=== PATIENT | male | born 1950 | race Caucasian/White ===

== ENCOUNTER 2024-12-03 15:03 | Inpatient (IN) | payer MEDICARE, SELFPAY ==
--- NOTE | 2024-12-03 15:05 | ADMGEN ---
This patient, Daniel Lloyd, was admitted to 2nd Floor Room 205-1. Patient/family oriented to hospital policies and general routines including ID bracelet, bed and alarms, visiting hours, pain management, procedures, bathroom and other care routines, personal items, smoking policy, room service/diet, and visiting hours. Information on how to activate the Rapid Response Team has been discussed. Patient/Family are encouraged to report perceived risks to care and to ask questions if they do not understand what they are told or what they should do.
[2024-12-03 15:39] VITALS: BMI 30.4
[2024-12-03 16:00] VITALS: BP 147/84; PULSE 108; RESP 18; TEMP 36.4; O2SAT 98
[2024-12-03 16:55] VITALS: PULSE 108; RESP 18; O2SAT 98
[2024-12-03 17:38] VITALS: BMI 10.0
--- OUTSIDE RECORDS SUMMARY | 2024-12-03 17:53 | XMS_ITS | Patient Health Summary ---
Author Organization [facility] Address [address] [place] [address] Care Team Providers Care Medical Or Surgical Instrument Maker Name Role Phone Casandra Foreman MD Primary Care Provider [phone] Piter Lau DO Unavailable [phone] Note from [facility],non-owned Affiliates and Associated Physician Practices is amultiple site organization consisting of ambulatory clinics and hospital sitesin [place], [place], [place] and [place]. This disclosure is being madepursuant to the Care Everywhere program and may not contain all information available regarding this patient. Last updated 18.[facility] Allergies * Meperidine * Niacin(Rash) -Medium Criticality Medications * Be aware that medications may not be up to date on this document. Alwaysverify current medications with the patient. * Multiple Vitamin (MULTI VITAMIN DAILY PO) Take 1 Tab by mouth once daily * CALCIUM PO Take 1,200 mg by mouth once daily * Altheimer-3 Fatty Acids (FISH OIL) 1000 MG capsule Take 1,000 mg by mouth once daily * Multiple Vitamins-Minerals (PRESERVISION AREDS PO) * B Complex-C (SUPER B COMPLEX PO) Take by mouth once daily * Coenzyme Q10 (COQ10 PO) Take 200 mg by mouth once daily * metFORMIN (GLUCOPHAGE) 500 MG tablet Take 500 mg by mouth 2 times daily with morning and evening meal * TURMERIC PO Take 1 capsule by mouth 2 times daily * Vitamin D3 (CHOLECALCIFEROL) 50 MCG (2000 UT) capsule Take 2,000 Units by mouth once daily * Zinc Chelated 50 MG TABS Take 50 mg by mouth once daily * dilTIAZem coated beads 24hr (CARDIZEM CD) 240 MG capsule(Started 04/21/2021) Take 1 (one) capsule by mouth once daily 3 refills by 04/21/2022 * quinapril - hydroCHLOROthiazide (ACCURETIC; QUINARETIC) 20-12.5 MG tablet (Started 04/21/2021) Take 2 (two) tablets by mouth once daily 5 refills by 04/21/2022 * rosuvastatin (CRESTOR) 10 MG tablet(Started 04/21/2021) Take 1 (one) tablet by mouth once daily 3 refills by 04/21/2022 Active Problems Problem Noted Date Diagnosed Date DM (diabetes mellitus) 02/17/2015 HTN (hypertension) 02/17/2015 Social History Tobacco Use Types Packs/Day Years Used Date Smoking Tobacco: Former Cigarettes Q uit: 09/19/1982 Smokeless Tobacco: Never Tobacco Cessation:Counseling Given: No Alcohol Use Standard Drinks/Week Comments Yes 0 (1 standard drink = 0.6 oz pur e alcohol) maybe once per month Sex and Gender Information Value Date Recorded Sex Assigned at Not on file Gender Identity Not on file Sexual Orientation Not on file Last Filed Vital Signs Vital Sign Reading Time Taken Comments Blood Pressure 130/88 04/21/2021 2:12 PM CDT Pulse 86 04/21/2021 2:12 PM CDT Temperature 36.9 C (98.4 F) 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 Right: [employer] 10/06/2019 [id number] / N/A / [id number] Procedures * EKG 12-LEAD(Performed 04/21/2021) Performed for Sinus tachycardia * EKG 12-LEAD(Performed 10/21/2020) Performed for Sinus tachycardia * EKG 12-LEAD(Performed 03/17/2020) Performed for Sinus tachycardia * LIPID PROFILE(Performed 03/07/2018) Performed for Mixed hyperlipidemia * BASIC METABOLIC PANEL (CALCIUM TOTAL)(Performed 03/07/2018) Performed for Swelling of limb * CARDIAC RHYTHM STRIP ORDER(Performed 10/22/2016) * PULSE OXIMETRY, CONTINUOUS(Performed 10/22/2016) * COLONOSCOPY DIAGNOSTIC(Performed 10/22/2016) Performed for Hx of colonic polyp * PULSE OXIMETRY, CONTINUOUS(Performed 10/22/2016) * OXYGEN(Performed 10/22/2016) * ENDOSCOPY, COLON, SCREENING(Performed 10/22/2016) * CARDIAC RHYTHM STRIP ORDER(Performed 05/03/2016) * GROSS EXAM PATHOLOGY (ILL)(Performed 04/30/2016) Performed for Kidney stone * FLUORO LESS THAN 1HR STAT ONLY(Performed 04/30/2016) Performed for Kidney stone * STONE ANALYSIS QUANT(Performed 04/30/2016) Performed for Kidney stone * CYSTOSCOPY URETEROSCOPY WITH LASER/HOLMIUM LITHOTRIPSY(Performed 04/30/2016) Performed for Kidney stone * EKG 12-LEAD(Performed 04/28/2016) Performed for Kidney stone, Essential hypertension * URINALYSIS AUTO - POINT OF CARE (AMB) [facility](Performed 04/12/2016) Performed for Kidney stone * CT ABDOMEN PELVIS WO CONTRAST(Performed 04/11/2016) Performed for Right flank pain * COMPREHENSIVE METABOLIC PANEL(Performed 04/11/2016) * CBC W AUTO DIFFERENTIAL(Performed 04/11/2016) * URINE MICROSCOPIC ONLY REFLEX TO CULTURE(Performed 04/11/2016) * URINALYSIS REFLEX MICROSCOPIC REFLEX CULTURE(Performed 04/11/2016) * ECHOCARDIOGRAM 2D WITH DOPPLER(Performed 03/04/2015) Performed for Other chest pain * EVENT MONITOR(Performed 03/04/2015) Performed for Palpitations * MICROALBUMIN URINE TIMED(Performed 09/25/2013) Performed for Type Ii Or Unspecified Type Diabetes Mellitus Without Mention Of Complication, Not Stated As Uncontrolled (Hcc) * URINE MICROSCOPIC ONLY(Performed 09/25/2013) Performed for Type Ii Or Unspecified Type Diabetes Mellitus Without Mention Of Complication, Not Stated As Uncontrolled (Formerly [facility]) * URINALYSIS NO MICROSCOPIC NO CULTURE(Performed 09/25/2013) Performed for Type Ii Or Unspecified Type Diabetes Mellitus Without Mention Of Complication, Not Stated As Uncontrolled ([facility]) * TSH(Performed 09/25/2013) Performed for Other Malaise And Fatigue * T4 FREE(Performed 09/25/2013) Performed for Other Malaise And Fatigue * HEMOGLOBIN A1C(Performed 09/25/2013) Performed for Type Ii Or Unspecified Type Diabetes Mellitus Without Mention Of Complication, Not Stated As Uncontrolled ([facility]) * LIPID PROFILE(Performed 09/25/2013) Performed for Type Ii Or Unspecified Type Diabetes Mellitus Without Mention Of Complication, Not Stated As Uncontrolled ([facility]) * CBC W/O DIFFERENTIAL(Performed 09/25/2013) Performed for Type Ii Or Unspecified Type Diabetes Mellitus Without Mention Of Complication, Not Stated As Uncontrolled ([facility]) * COMPREHENSIVE METABOLIC PANEL(Performed 09/25/2013) Performed for Type Ii Or Unspecified Type Diabetes Mellitus Without Mention Of Complication, Not Stated As Uncontrolled ([facility]) * GROSS + MICRO EXAM(Performed 06/22/2012) * GROSS + MICRO EXAM(Performed 06/09/2010) * GROSS + MICRO EXAM(Performed 07/03/1997) * GROSS + MICRO EXAM(Performed 08/24/1996) Results * EKG 12-LEAD (04/21/2021) Only the most recent of4 resultswithin the time period is included. Piter Lau DO ECG ORDERABLES * (ABNORMAL) BASIC METABOLIC PANEL (CALCIUM TOTAL) (03/07/2018 8:14 AM CDT) [facility] Glucose 202(H) 70 - 125 mg/dL 03/07/2018 9:23 AM T [facility] Sodium 140 136 - 145 mmol/L 03/07/2018 9:23 AM CDT [facility] Potassium 3.9 3.4 - 4.5 mmol/L 03/07/2018 9:23 AM T [facility] Chloride 104 98 - 107 mmol/L 03/07/2018 9:23 AM T [facility] CO2 26 22 - 29 mmol/L 03/07/2018 9:23 AM CDT [facility] Calcium 9.2 8.4 - 10.2 mg/dL 03/07/2018 9:23 AM CDT [facility] Anion Gap 14 10 - 20 mmol/L 03/07/2018 9:23 AM CDT [facility] BUN 11.9 8.4 - 25.7 mg/dL 03/07/2018 9:23 AM CDT [facility] Creatinine 0.97 0.72 - 1.25 mg/dL 03/07/2018 9:23 AM CDT [facility] eGFR by MDRD >60 >60 mL/min/1.7 3m2 03/07/2018 9:23 AM CDT [facility] eGFR by MDRD >60 >60 mL/min/1.7 3m2 03/07/2018 9:23 AM CDT [facility] Blood BLOOD SPECIMEN / Unknown Lab Venipuncture / Unknown 03/07/2018 8:14 AM CDT 03/07/2018 8:49 AM CDT Piter Lau DO LAB - CHEMISTRY [place]DE [place] [facility] Organization Address City/State/[facility] Co de Phone Number [facility] [address] * (ABNORMAL) LIPID PROFILE (03/07/2018 8:14 AM CDT) Only the most recent of2 resultswithin the time period is included. Cholesterol 91 <200 mg/dL 03/07/2018 9:23 AM T [facility] Triglycerides 214(H) <150 mg/dL 03/07/2018 9:23 AM CDT [facility] HDL Cholesterol 27(L) >40 mg/dL 8 9:23 AM CDT [facility] Chol HDL Ratio 3.4 1.0 - 6.0 03/07/2018 9:23 AM T [facility] LDL Calculated 21(L) 65 - 130 mg/dL 03/07/2018 9:23 AM T [facility] VLDL Calculated 43(H) 10 - 40 mg/dL 03/07/2018 9:23 AM CDT [facility] Blood BLOOD SPECIMEN / Unknown Lab Venipuncture / Unknown 03/07/2018 8:14 AM CDT 03/07/2018 8:49 AM CDT Narrative [facility] - 03/07/2018 9:23 AM CDT Lipid Profile Comment: CHOLESTEROL LEVEL..................CLINICAL INTERPRETATION LESS THAN 200 MG/DL..............................DESIRABLE 200-239 MG/DL..............................BORDERLINE HIGH GREATER THAN 240 MG/DL................................HIGH LDL-CHOLESTEROL LEVEL..............CLINICAL INTERPRETATION LESS THAN 100 MG/DL................................OPTIMAL 100-129 MG/DL.................................NEAR OPTIMAL GREATER THAN 160 MG/DL...........................HIGH RISK HDL RISK LEVEL GREATER THEN 60 MG/DL............................DECREASED 40-60 MG/DL........................................AVERAGE LESS THAN 40 MG/DL...............................INCREASED TRIGLYCERIDE LEVEL..................CLINICAL INTERPRETATION LESS THAN 150 MG/DL...............................DESIRABLE 150-199 MG/DL...............................BORDERLINE HIGH 200-499 MG/DL..........................................HIGH GREATER THAN 500..................................VERY HIGH THE NATIONAL CHOLESTEROL EDUCATION PROGRAM HAS SET THE ABOVE GUIDELINES (REFERANCE VALUES) FOR CHOLESTEROL AND HDL. RISK ASSOCIATED WITH CHOLESTEROL/HDL RATIOS RISK....................MALE RATIO.............FEMALE RATIO 1/2 AVERAGE.................<3.4.......................<3.3 LOW RISK.................... 4.0 ...................... 3.8 AVERAGE..................... 5.0 ...................... 4.5 2X AVERAGE.................. 9.5 ...................... 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 Narrative 10/22/2016 3:29 PM [employer] CRE[employer] MIXER Ordered by an unspecified provider. Scanned Document CARDIAC SERVICES ORD ERABLES * GROSS EXAM PATHOLOGY (ILL) (04/30/2016 12:50 PM CDT) Case Report Surgical Pathology Report Case: [id number] Authorizing Provider: Lasha Card MD Collected: 04/30/2016 12:50 PM Ordering Location: [facility] Received: 04/30/2016 02:37 PM Pathologist: Edward Watts MD Specimen: Calculus Kidney, right 04/30/2016 4:08 PM CDT [facility] Final Diagnosis URETER, RIGHT, LASER LITHOTRIPSY: - FEATURES MORPHOLOGICALLY COMPATIBLE WITH UROLITH. - SENT FOR ANALYSIS. GROSS DIAGNOSIS ONLY. ALK/jzr 04/30/2016 4:08 PM CDT [facility] Clinical History Collection Date: 04/30/2016 Preoperative Clinical Diagnosis: Kidney stone Operative Procedure: CYSTOSCOPY RIGHT URETEROSCOPY WITH LITHOTRIPSY WITH LASER, BASKET STONE EXTRACTION, RIGHT URETERAL STENT PLACEMENT. Specimen Submitted: Right kidney stone Physician: Lasha Card MD 04/30/2016 4:08 PM CDT [facility] Gross Description Received fresh labeled [place], Daja and calc kdn , are seven angulated bhakta-brown stone fragments which range from 0.2 to 0.3 cm in greatest dimension. The stone fragments are entirely submitted for compositional analysis. Gross diagnosis only. 04/30/2016 4:08 PM CDT [facility] Microscopic Description Not performed, gross examination only. 04/30/2016 4:08 PM CDT [facility] Testing Performed By Performed by [facility] at [facility], [place]. [address] 04/30/2016 4:08 PM CDT [facility] Pathology/Cytolo gy KIDNEY STONE / Unknown 04/30/2016 12:50 PM CDT 04/30/2016 2:37 PM CDT Lasha Card MD LAB - PATHOLOGY/CYTO LOGY ORDERABLES [facility] [address] * [place] GUIDE < 1 HOUR NO DICTATION STAT ONLY [id number] (04/30/2016 12:19 PM CDT) Narrative [facility] - 04/30/2016 12:19 PM CDT No Dictation. Lasha Card MD FLUOROSCOPY ORDERABL ES Performing Organization Address [facility] Co de Phone Number [facility] [address] * (ABNORMAL) GLUCOSE - POINT OF CARE (04/30/2016 12:14 PM CDT) Only the most recent of2 resultswithin the time period is included. Blood BLOOD SPECIMEN / Unknown 04/30/2016 12:14 PM CDT 04/30/2016 12:16 PM CDT Lasha Card MD LAB - POINT OF CARE ORDERABLES Performing Organization Address [facility] de Phone Number [facility] [address] * STONE ANALYSIS QUANT (04/30/2016 11:46 AM CDT) Calculi Mass 60 mg 05/04/2016 7:06 PM CDT [facility] ([facility]) Calculi Number Numerous 05/04/2016 7:06 PM CDT [facility] ([facility]) Calculi Size 1 to 4 mm 05/04/2016 7:06 PM CDT [facility] ([facility]) Calculi Description See Note 05/04/2016 7:06 PM CDT [facility] ([facility]) Comment: Specimen consists of numerous, small, bhakta, crystalline calculi fragments. Calculi Composition See Note 05/04/2016 7:06 PM CDT [facility] ([facility]) Comment: Calculi composed primarily of: 70% calcium oxalate dihydrate, and 30% calcium phosphate (hydroxy- and carbonate- apatite). INTERPRETIVE INFORMATION: Calculi (Stone) analysis Calculi are the products of physiological processes that yield crystalline compounds in a matrix of biological compounds and blood. Matrix components are not reported. The clinically significant crystalline components identified in calculi specimens are reported. Gross description may not be consistent with composition determined by FTIR analysis. Performed by [facility], [address] [place] [address] [email or web address], Seb Zimmerman MD, Lab. Director Miscellaneous samples (specimen) KIDNEY STONE / Unknown 04/30/2016 11:46 AM CDT 04/30/2016 4:12 PM CDT Lasha Card MD LAB - URINE CHEMISTR Y ORDERABLES [facility] ([facility]) [address] [place] [address], [facility] * (ABNORMAL) URINALYSIS AUTO - POINT OF CARE (AMB) [facility] (04/12/2016 11:45 AM CDT) Clarity UA POCT --- Color UA POCT --- Glucose UA 500.(A) Negative Bilirubin UA POCT Negative Negative Ketone UA Negative Negative Specific Lanse UA POCT 1.020 1.002 - 1.030 Blood UA POCT Large(A) Negative pH UA 5.0 5.0 - 8.0 pH units Protein UA POCT Negative Negative Urobilinogen UA 0.2 0.1 - 1.0 Nitrite UA POCT Negative Negative Leukocyte UA Negative Negative QC Verified Yes Yes Urine specimen (specimen) URINE / Unknown 04/12/2016 11:45 AM CDT Lasha Card MD LAB - POINT OF CARE ORDERABLES * CT ABDOMEN AND PELVIS WO IV CONTRAST [id number] (04/11/2016 8:11 PM CDT) Anatomical Region Laterality Modality Abdomen, Pelvis Computed Tomogra phy 04/11/2016 8:40 PM CDT Impressions 04/11/2016 9:31 PM CDT Obstructive uropathy on right due to 5 x 10 mm stone at the right UPJ without additional urinary tract calculi or left-sided obstructive uropathy. Cholelithiasis without cholecystitis. Large left inguinal hernia containing mesenteric fat and small bowel loop without incarceration of bowel. Smaller right inguinal hernia containing fat only. No apparent bowel obstruction. No mass lesions identified on this unenhanced study with chronic and postoperative change as noted above. Preliminary report printed to the Emergency Room on 04/11/2016 at 2049 hours. Subsequent telephone call to Isaac Marvin confirmed receipt of printed report. Narrative 04/11/2016 9:[address] OF ABDOMEN AND PELVIS WITHOUT IV OR ORAL CONTRAST WITH SAGITTAL AND CORONAL RECONSTRUCTION (04/11/2016) HISTORY: Right flank pain. Request to evaluate for urinary tract calculus. Automated exposure control with radiation dose reduction technique utilized. FINDINGS: Obstructive uropathy on right with moderate perinephric stranding and with hydronephrosis due to approximately 5 x 10 mm obstructing stone at the right UPJ. No additional urinary tract calculi identified and without apparent obstructive uropathy on the left. Visualized lung bases appear clear of active disease with minor post-inflammatory calcification. Postoperative ventral hernia repair change evident with mesh in place. There is also a large left inguinal hernia continuing inferior to inferior margin of study and containing both mesenteric fat and small bowel loop; wide mouth of hernia in range of 5 cm without incarceration of bowel or bowel obstruction. Right inguinal hernia containing fat only. Phlebolith formation in pelvis. No free intraperitoneal air or free pelvic fluid identified. Moderate, diffuse fatty infiltration of liver. Calcified gallstones in dependent portion of gallbladder without apparent CT evidence of acute cholecystitis. No apparent hepatic, splenic, pancreatic, adrenal, renal, or pelvic mass lesions identified on this unenhanced study. Colonic diverticulosis without apparent diverticulitis. No apparent bowel obstruction. Normal appendix. Degenerative and hypertrophic change noted in lumbar and visualized lower thoracic spine with disc height loss at multiple levels and with vacuum disc phenomenon at L4-L5 and L5-S1. Slight grade I/IV spondylolisthesis of L4 anterior relative to L3 felt to be on degenerative basis. Procedure Note Ty Gaspar MD - 04/11/2016 CT OF ABDOMEN AND PELVIS WITHOUT IV OR ORAL CONTRAST WITH SAGITTAL AND CORONAL RECONSTRUCTION (04/11/2016) HISTORY: Right flank pain. Request to evaluate for urinary tract calculus. Automated exposure control with radiation dose reduction technique utilized. FINDINGS: Obstructive uropathy on right with moderate perinephric stranding and with hydronephrosis due to approximately 5 x 10 mm obstructing stone at the right UPJ. No additional urinary tract calculi identified and without apparent obstructive uropathy on the left. Visualized lung bases appear clear of active disease with minor post-inflammatory calcification. Postoperative ventral hernia repair change evident with mesh in place. There is also a large left inguinal hernia continuing inferior to inferior margin of study and containing both mesenteric fat and small bowel loop; wide mouth of hernia in range of 5 cm without incarceration of bowel or bowel obstruction. Right inguinal hernia containing fat only. Phlebolith formation in pelvis. No free intraperitoneal air or free pelvic fluid identified. Moderate, diffuse fatty infiltration of liver. Calcified gallstones in dependent portion of gallbladder without apparent CT evidence of acute cholecystitis. No apparent hepatic, splenic, pancreatic, adrenal, renal, or pelvic mass lesions identified on this unenhanced study. Colonic diverticulosis without apparent diverticulitis. No apparent bowel obstruction. Normal appendix. Degenerative and hypertrophic change noted in lumbar and visualized lower thoracic spine with disc height loss at multiple levels and with vacuum disc phenomenon at L4-L5 and L5-S1. Slight grade I/IV spondylolisthesis of L4 anterior relative to L3 felt to be on degenerative basis. IMPRESSION Obstructive uropathy on right due to 5 x 10 mm stone at the right UPJ without additional urinary tract calculi or left-sided obstructive uropathy. Cholelithiasis without cholecystitis. Large left inguinal hernia containing mesenteric fat and small bowel loop without incarceration of bowel. Smaller right inguinal hernia containing fat only. No apparent bowel obstruction. No mass lesions identified on this unenhanced study with chronic and postoperative change as noted above. Preliminary report printed to the Emergency Room on 04/11/2016 at 2049 hours. Subsequent telephone call to Isaac Wong confirmed receipt of printed report. Gino Mcarthur MD CT ORDERABLES * (ABNORMAL) CBC W AUTO DIFFERENTIAL (04/11/2016 8:05 PM CDT) WBC 10.8(H) 4.0 - 10.0 x10E9/L 04/11/2016 8:11 PM CDT [facility] RBC 4.51 4.40 - 6.10 x10E12/L 04/11/2016 8:11 PM CDT [facility] Hemoglobin 14.8 13.7 - 17.5 gm/dL 04/11/2016 8:11 PM CDT [facility] Hematocrit 42.2 40.1 - 51.0 % 04/11/2016 8:11 PM [facility] MCV 93.6 78.0 - 100.0 fl 04/11/2016 8:11 PM [facility] MCH 32.8 25.6 - 34.0 pg 04/11/2016 8:11 PM [facility] MCHC 35.1 32.3 - 36.5 gm/dL 04/11/2016 8:11 PM [facility] RDW 13.1 11.6 - 14.4 % 04/11/2016 8:11 PM [facility] MPV 10.0 9.4 - 12.4 fl 04/11/2016 8:11 PM [facility] Platelet Count 183 163 - 369 x10E9/L 04/11/2016 8:11 PM [facility] Neutrophils % 72.6 40.0 - 75.0 % 04/11/2016 8:11 PM [facility] Lymphocytes % 15.7(L) 19.3 - 53.1 % 04/11/2016 8:11 [facility] Monocytes % 8.8 4.7 - 12.5 % 04/11/2016 8:11 PM [facility] Eosinophils % 2.3 0.7 - 7.0 % 04/11/2016 8:11 PM [facility] Basophils % 0.2 0.1 - 1.2 % 04/11/2016 8:11 PM [facility] Immature Granulocytes 0.4 0 - 0.5 % 04/11/2016 8:11 PM [facility] Neutrophil Absolute 7.82(H) 1.56 - 6.13 x10E9/L 04/11/2016 8:11 PM [facility] Lymphocytes Absolute 1.69 1.18 - 3.74 x10E9/L 04/11/2016 8:11 PM [facility] Monocytes Absolute 0.95(H) 0.24 - 0.86 x10E9/L 04/11/2016 8:11 PM [facility] Eosinophils Absolute 0.25 0.04 - 0.54 x10E9/L 04/11/2016 8:11 PM [facility] Basophils Absolute 0.02 0.01 - 0.08 x10E9/L 04/11/2016 8:11 PM [facility] Immature Granulocytes Absolute 0.04(H) 0 - 0.03 x10E9/L 04/11/2016 8:11 PM CDT [facility] nRBC Auto 0 <=0 /100 WBC 04/11/2016 8:11 PM CDT [facility] nRBC Absolute 0.00 <=0 x10E9/L 04/11/2016 8:11 PM T [facility] Blood BLOOD SPECIMEN / Unknown Lab Venipuncture / Unknown 04/11/2016 8:05 PM CDT 04/11/2016 8:08 PM CDT Gino Mcarthur MD LAB - HEMATOLOGY ORD ERABLES [facility] [address] * (ABNORMAL) COMPREHENSIVE METABOLIC PANEL (04/11/2016 8:05 PM T) Only the most recent of2 resultswithin the time period is included. Glucose 249(H) 70 - 125 mg/dL 04/11/2016 8:32 PM [facility] Sodium 139 136 - 145 mmol/L 04/11/2016 8:32 PM [facility] Potassium 3.5 3.4 - 4.5 mmol/L 04/11/2016 8:32 PM [facility] Chloride 104 98 - 107 mmol/L 04/11/2016 8:32 PM [facility] CO2 25 22 - 29 mmol/L 04/11/2016 8:32 PM [facility] Calcium 8.9 8.4 - 10.2 mg/dL 04/11/2016 8:32 PM [facility] Anion Gap 14 10 - 20 mmol/L 04/11/2016 8:32 PM [facility] BUN 14.9 8.4 - 25.7 mg/dL 04/11/2016 8:32 PM [facility] Creatinine 1.34(H) 0.72 - 1.25 mg/dL 04/11/2016 8:32 PM [facility] eGFR by MDRD 54(L) >60 mL/min/1.7 3m2 04/11/2016 8:32 PM [facility] [facility] eGFR by MDRD >60 >60 mL/min/1.7 3m2 04/11/2016 8:32 PM T [facility] Alkaline Phosphatase 54 40 - 150 U/L 04/11/2016 8:32 PM CDT [facility] ALT 25 5 - 55 U/L 04/11/2016 8:32 PM CDT [facility] AST 23 5 - 34 U/L 04/11/2016 8:32 PM CDT [facility] Protein Total 6.6 6.4 - 8.3 gm/dL 04/11/2016 8:32 PM CDT [facility] Albumin 3.4(L) 3.5 - 5.0 gm/dL 04/11/2016 8:32 PM CDT [facility] Globulin Total 3.2 2.6 - 4.0 gm/dL 04/11/2016 8:32 PM T [facility] Albumin/Globulin Ratio 1.1 0.9 - 1.6 04/11/2016 8:32 PM T [facility] Bilirubin Total 0.7 0.2 - 1.2 mg/dL 04/11/2016 8:32 PM T [facility] Blood BLOOD SPECIMEN / Unknown Lab Venipuncture / Unknown 04/11/2016 8:05 PM CDT 04/11/2016 8:08 PM CDT Gino Mcarthur MD LAB - CHEMISTRY [place]Z [place] [facility] Organization Address [facility]/State/[facility] Co de Phone Number [facility] [address] * (ABNORMAL) URINALYSIS MICROSCOPIC ONLY W/REFLEX CULTURE (04/11/2016 8:01 PM CDT) RBC UA 5-10(A) None , 0-2 # /hpf 04/11/2016 8:56 PM CDT [facility] WBC UA 0-2 None , 0-2, 2-5 # /hpf 04/11/2016 8:56 PM T [facility] Bacteria UA None Seen None Seen, Trace 04/11/2016 8:56 PM CDT [facility] Epithelial Cell UA 0-2 0-2, 2-5, 5-10 # /hpf 04/11/2016 8:56 PM CDT [facility] Mucus UA 1+ 04/11/2016 8:56 PM T [facility] Reflex Status Culture not indicated 04/11/2016 8:56 PM T [facility] Urine URINE SPECIMEN OBTAINED BY CLEAN CATCH PROCEDURE / Unknown 04/11/2016 8:01 PM CDT 04/11/2016 8:30 PM CDT Narrative [facility] - 04/11/2016 8:56 PM CDT Bacteria, epithelial cells, mucus, and crystals are reported as quantity/HPF. Gino Mcarthur MD LAB - URINALYSIS ORD ERABLES Performing Organization Address [facility] Co de Phone Number [facility] [address] * (ABNORMAL) URINALYSIS ROUTINE W/REFLEX TO CULTURE (04/11/2016 8:01 PM CDT) Color UA Yellow 04/11/2016 8:34 PM CDT [facility] Clarity UA Clear 04/11/2016 8:34 PM CDT [facility] Glucose UA Negative Negative 04/11/2016 8:34 PM CDT [facility] Bilirubin UA Negative Negative 04/11/2016 8:34 PM CDT [facility] Ketone UA Trace(A) Negative 04/11/2016 8:34 PM CDT [facility] Specific Lanse UA 1.025 1.005 - 1.030 04/11/2016 8:34 PM CDT [facility] pH UA 5.0 5.0 - 8.0 pH 04/11/2016 8:34 PM CDT [facility] Protein UA Negative Negative 04/11/2016 8:34 PM CDT [facility] Urobilinogen UA 0.2 0.2 - 1.0 EU/dL 04/11/2016 8:34 PM CDT [facility] Nitrite UA Negative Negative 04/11/2016 8:34 PM CDT [facility] Blood UA 3+(A) Negative 04/11/2016 8:34 PM CDT [facility] Leukocyte UA Trace(A) Negative 04/11/2016 8:34 PM CDT [facility] Urine Microscopy Urine microscopy to follow 04/11/2016 8:34 PM CDT [facility] Urine URINE SPECIMEN OBTAINED BY CLEAN CATCH PROCEDURE / Unknown 04/11/2016 8:01 PM CDT 04/11/2016 8:30 PM CDT Gino Mcarthur MD LAB - URINALYSIS ORD ERABLES Performing Organization Address [facility] Co de Phone Number [facility] [address] * ECHOCARDIOGRAM 2D WITH DOPPLER (03/04/2015 12:00 AM CDT) 03/04/2015 [facility] CARDIOLOGY - 03/04/2015 5:17 PM CDT [address] [address] Transthoracic Echocardiogram 2D, M-mode, Doppler, and Color Doppler Patient: DAJA LLOYD MR #: [id number] : 1950 Age: 64 years Gender: Male Study date: 04-Mar-2015 Status: Outpatient Room: - Height: 71 in Weight: 275 lb BSA: 2.42 m Referring Physician: Piter Lau DO, MSEE Concrete Mixer Operator Helper: Bhavesh Land MD [facility] Weekend Anchor: Cindy Terrell RDCS Summary: - Clinical question: OTHER CHEST PAIN, - Left ventricle: Ejection fraction was estimated in the range of 70 % to 75 %. There was mild asymmetric hypertrophy of the septum. - Right ventricle: Estimated peak pressure was 16 mmHg. - Tricuspid valve: There was trace regurgitation. Comparisons: Comparison was made with the previous study of 06-Apr-2007. Clinical question: OTHER CHEST PAIN, History: Cardiovascular history: DIABETIC, HTN, SMOKER, Procedure: The procedure was performed in the echo lab. This was a routine study. The transthoracic approach was used. The study included complete 2D imaging, M-mode, complete spectral Doppler, and color Doppler. The heart rate was 83 bpm, at the start of the study. Systolic blood pressure was 146 mmHg, at the start of the study. Diastolic blood pressure was 94 mmHg, at the start of the study. Images were obtained from the parasternal, apical, subcostal, and suprasternal notch acoustic windows. Image quality was adequate. Left ventricle: Size was normal. Ejection fraction was estimated in the range of 70 % to 75 %. Cardiac wall motion was otherwise normal. There was mild asymmetric hypertrophy of the septum. Doppler: The transmitral flow pattern was normal. Aortic valve: The valve was trileaflet. Leaflets exhibited normal cuspal separation. Aorta: The root exhibited upper limit of normal size. Mitral valve: Valve structure was normal. Left atrium: Size was normal. Pulmonary veins: Not well visualized. Right ventricle: The size was normal. Systolic function was normal. Doppler: Estimated peak pressure was 16 mmHg. Pulmonic valve: Leaflets exhibited normal thickness, no calcification, and normal cuspal separation. Doppler: The transpulmonic velocity was within the normal range. There was no regurgitation. Tricuspid valve: The valve structure was normal. Doppler: There was trace regurgitation. Right atrium: Size was normal. Systemic veins: IVC: The inferior vena cava was not well visualized. Pericardium: There was no pericardial effusion. The pericardium was normal in appearance. System measurement tables 2D LVEF MOD A4C: 78 % LVEDV MOD A4C: 53.6 ml LVESV MOD A4C: 11.8 ml LVOT Diam: 2.2 cm LAAs A2C: 19.2 cm2 LAAs A4C: 16.1 cm2 LAESV A-L A2C: 53 ml LAESV A-L A4C: 39.6 ml LAESV Index (A-L): 19.5 ml/m2 LAESV MOD A2C: 51.9 ml LAESV MOD A4C: 38 ml LAESV(A-L): 47.2 ml LALs A2C: 5.9 cm LALs A4C: 5.6 cm CW AV VTI: 29.2 cm AV Vmax: 1.3 m/s AV maxP.5 mmHg AV meanP mmHg RAP: 10 mmHg TR Vmax: 1.3 m/s TR maxP.8 mmHg MM AV Cusp: 1.7 cm AoR Diam; (2D): 3.5 cm IVSd: 1.5 cm IVSs: 1.6 cm LVIDd: 4.3 cm LVIDs: 3 cm LVPWd: 1.1 cm LVPWs: 2 cm RVIDd: 2.9 cm PW CARRIE (VTI): 2.9 cm2 CARRIE Vmax: 3.2 cm2 LVCI Dopp: 2.3 l/minm2 LVCO Dopp: 5.5 L/min LVOT VTI: 22 cm LVOT Vmax: 1 m/s LVOT Vmean: 0.7 m/s LVOT maxP.3 mmHg LVOT meanP.3 mmHg LVSI Dopp: 35.5 ml/m2 LVSV Dopp: 86 ml E/E': 5.9 MV A Samson: 0.6 m/s MV Dec [place]: 4.1 m/s2 MV DecT: 184.9 ms MV E Samson: 0.8 m/s MV E/A Ratio: 1.3 MV PHT: 56.4 ms MVA By PHT: 3.9 cm2 PV Vmax: 1.2 m/s PV maxP.7 mmHg RVSP: 16.8 mmHg TV E Samson: 0.7 m/s HR: 63.4 BPM All images and data generated for this procedure were personally reviewed by me. Prepared and Electronically Authenticated Bhavesh Land MD [facility] 04-Mar-2015 17:26:25 Procedure Note Unknown, Provider - 03/04/[address] [address] Transthoracic Echocardiogram 2D, M-mode, Doppler, and Color Doppler Patient: DAJA LLOYD MR #: [id number] : 1950 Age: 64 years Gender: Male Study date: 04-Mar-2015 Status: Outpatient Room: - Height: 71 in Weight: 275 lb BSA: 2.42 m Referring Physician: Piter Lau DO, MSEE Concrete Mixer Operator Helper: Bhavesh Land MD [facility] Weekend Anchor: Cindy Terrell RDCS Summary: - Clinical question: OTHER CHEST PAIN, - Left ventricle: Ejection fraction was estimated in the range of 70 % to75 %. There was mild asymmetric hypertrophy of the septum. - Right ventricle: Estimated peak pressure was 16 mmHg. - Tricuspid valve: There was trace regurgitation. Comparisons: Comparison was made with the previous study of 06-Apr-2007. Clinical question: OTHER CHEST PAIN, History: Cardiovascular history: DIABETIC, HTN, SMOKER, Procedure: The procedure was performed in the echo lab. This was aroutine study. The transthoracic approach was used. The study included [id number] imaging, M-mode, complete spectral Doppler, and color Doppler. The heartrate was 83 bpm, at the start of the study. Systolic blood pressure was 146mmHg, at the start of the study. Diastolic blood pressure was 94 mmHg, at the startof the study. Images were obtained from the parasternal, apical, subcostal,and suprasternal notch acoustic windows. Image quality was adequate. Left ventricle: Size was normal. Ejection fraction was estimated in therange of 70 % to 75 %. Cardiac wall motion was otherwise normal. There wasmild asymmetric hypertrophy of the septum. Doppler: The transmitral flowpattern was normal. Aortic valve: The valve was trileaflet. Leaflets exhibited normal cuspal separation. Aorta: The root exhibited upper limit of normal size. Mitral valve: Valve structure was normal. Left atrium: Size was normal. Pulmonary veins: Not well visualized. Right ventricle: The size was normal. Systolic function was normal.Doppler: Estimated peak pressure was 16 mmHg. Pulmonic valve: Leaflets exhibited normal thickness, no calcification,and normal cuspal separation. Doppler: The transpulmonic velocity was withinthe normal range. There was no regurgitation. Tricuspid valve: The valve structure was normal. Doppler: There wastrace regurgitation. Right atrium: Size was normal. Systemic veins: IVC: The inferior vena cava was not well visualized. Pericardium: There was no pericardial effusion. The pericardium was normalin appearance. System measurement tables 2D LVEF MOD A4C: 78 % LVEDV MOD A4C: 53.6 ml LVESV MOD A4C: 11.8 ml LVOT Diam: 2.2 cm LAAs A2C: 19.2 cm2 LAAs A4C: 16.1 cm2 LAESV A-L A2C: 53 ml LAESV A-L A4C: 39.6 ml LAESV Index (A-L): 19.5 ml/m2 LAESV MOD A2C: 51.9 ml LAESV MOD A4C: 38 ml LAESV(A-L): 47.2 ml LALs A2C: 5.9 cm LALs A4C: 5.6 cm CW AV VTI: 29.2 cm AV Vmax: 1.3 m/s AV maxP.5 mmHg AV meanP mmHg RAP: 10 mmHg TR Vmax: 1.3 m/s TR maxP.8 mmHg MM AV Cusp: 1.7 cm AoR Diam; (2D): 3.5 cm IVSd: 1.5 cm IVSs: 1.6 cm LVIDd: 4.3 cm LVIDs: 3 cm LVPWd: 1.1 cm LVPWs: 2 cm RVIDd: 2.9 cm PW CARRIE (VTI): 2.9 cm2 CARRIE Vmax: 3.2 cm2 LVCI Dopp: 2.3 l/minm2 LVCO Dopp: 5.5 L/min LVOT VTI: 22 cm LVOT Vmax: 1 m/s LVOT Vmean: 0.7 m/s LVOT maxP.3 mmHg LVOT meanP.3 mmHg LVSI Dopp: 35.5 ml/m2 LVSV Dopp: 86 ml E/E': 5.9 MV A Samson: 0.6 m/s MV Dec [place]: 4.1 m/s2 MV DecT: 184.9 ms MV E Samson: 0.8 m/s MV E/A Ratio: 1.3 MV PHT: 56.4 ms MVA By PHT: 3.9 cm2 PV Vmax: 1.2 m/s PV maxP.7 mmHg RVSP: 16.8 mmHg TV E Samson: 0.7 m/s HR: 63.4 BPM All images and data generated for this procedure were personally reviewedby nv. Prepared and Electronically Authenticated Bhavesh Land MD [facility] 04-Mar-2015 17:26:25 Piter Lau DO ECHO ORDERABLES [facility] * EVENT MONITOR (03/04/2015) Florinda Riley N - 03/04/2015 NSR with sinus tachycardia 110 bpm Piter Lau DO CARDIAC SERVICES ORD ERABLES * URINALYSIS DIPSTICK AUTO (09/25/2013 10:15 AM [facility]) Color UA Yellow 09/25/2013 11:01 AM [facility] Clarity UA Clear 09/25/2013 11:01 AM [facility] Specific Lanse UA >=1.030 1.005 - 1.030 09/25/2013 11:01 AM [facility] pH UA 6.0 5.0 - 8.0 pH 09/25/2013 11:01 AM [facility] Glucose UA Negative Negative 09/25/2013 11:01 AM [facility] Ketone UA Negative Negative 09/25/2013 11:01 AM [facility] Blood UA Negative Negative 09/25/2013 11:01 AM [facility] Bilirubin UA Negative Negative 09/25/2013 11:01 AM [facility] Protein UA Negative Negative 09/25/2013 11:01 AM [facility] Urobilinogen UA 0.2 0.2 - 1.0 EU/dL 09/25/2013 11:01 AM [facility] Leukocyte UA Negative Negative 09/25/2013 11:01 AM [facility] Nitrite UA Negative Negative 09/25/2013 11:01 AM [facility] Urine URINE SPECIMEN OBTAINED BY CLEAN CATCH PROCEDURE / Unknown Collection / Unknown 09/25/2013 10:15 AM [facility] 09/25/2013 10:15 AM [facility] Maya Be MD LAB - URINALYSIS ORD ERABLES Performing Organization Address [facility] de Phone Number [facility] [address] [place] [address] * (ABNORMAL) URINALYSIS MICROSCOPIC ONLY (09/25/2013 10:15 AM [facility]) RBC UA 0-2 None , 0-2 # /hpf 09/25/2013 12:02 PM [facility] WBC UA 0-2 None , 0-2, 2-5 # /hpf 09/25/2013 12:02 PM [facility] Bacteria UA Trace None Seen, Trace 09/25/2013 12:02 PM [facility] Epithelial Cell UA 0-2 0-2, 2-5, 5-10 09/25/2013 12:02 PM [facility] Mucus UA 3+ 09/25/2013 12:02 PM [facility] Amorphous Urate Crystals 1+(A) None Seen 09/25/2013 12:02 PM [facility] Urine URINE SPECIMEN OBTAINED BY CLEAN CATCH PROCEDURE / Unknown Collection / Unknown 09/25/2013 10:15 AM [facility] 09/25/2013 10:15 AM [facility] Narrative [facility] - 09/25/2013 12:02 PM [facility] Bacteria, epithelial cells, mucus, and crystals are reported as quantity/HPF. Maya Be MD LAB - URINALYSIS ORD ERABLES Performing Organization Address [facility]/ZIP Co de Phone Number [facility] [address] [place] [address] * MICROALBUMIN URINE TIMED (09/25/2013 10:15 AM [facility]) Collection Time Hours Random hr 09/26/2013 5:14 PM [facility] Volume 24 Hour Urine Random mL 09/26/2013 5:14 PM [facility] Microalbumin Urine 1.1 mg/dL 09/26/2013 5:14 PM [facility] Microalbumin 24 Hour Urine Not Applicable 2 - 30 mg/d 09/26/2013 5:14 PM [facility] Microalbumin ug/min Urine Not Applicable 0 - 20 ug/min 09/26/2013 5:14 PM [facility] Creatinine Urine 203 mg/dL 09/26/2013 5:14 PM [facility] Microalbumin/Cr eatinine Ratio 5 0 - 30 mg/g 09/26/2013 5:14 PM [facility] Creatinine 24 Hour Urine Not Applicable 800 - 2100 mg/d 09/26/2013 5:14 PM [facility] Urine specimen (specimen) TIMED URINE SPECIMEN / Unknown Collection / Unknown 09/25/2013 10:15 AM [facility] 09/25/2013 10:15 AM [facility] Maya Be MD LAB - URINE CHEMISTR Y ORDERABLES [facility] [address] [place] [address] * (ABNORMAL) HEMOGLOBIN A1C (09/25/2013 10:13 AM [facility]) Hemoglobin A1c 6.7(H) 4.2 - 5.8 % 09/26/2013 12:20 AM [facility] Estimated Average Glucose 146 mg/dL 09/26/2013 12:20 AM [facility] Whole Blood BLOOD SPECIMEN / Unknown Lab Venipuncture / Unknown 09/25/2013 10:13 AM [facility] 09/25/2013 10:14 AM [facility] Narrative [facility] - 09/26/2013 12:20 AM [facility] HgbA1c Test Information: The [place] [employer] recommends a HGB A1C of < 7% and that physicians reevaluate the treatment regiment of patients with HGB A1C values consistently >8%. Maya Be MD LAB - CHEMISTRY LUIZ [place] [facility] [address] [place] [address], [facility] * CBC W/O DIFFERENTIAL (09/25/2013 10:13 AM [facility]) WBC 8.3 4.0 - 10.0 x10^9/L 09/25/2013 11:06 AM [facility] RBC 4.81 4.40 - 6.10 x10^12/L 09/25/2013 11:06 AM [facility] Hemoglobin 15.0 13.7 - 17.5 gm/dL 09/25/2013 11:06 AM [facility] Hematocrit 45.5 40.1 - 51.0 % 09/25/2013 11:06 AM [facility] MCV 94.6 78.0 - 100.0 fl 09/25/2013 11:06 AM [facility] MCH 31.2 25.6 - 34.0 pg 09/25/2013 11:06 AM [facility] MCHC 33.0 32.3 - 36.5 gm/dL 09/25/2013 11:06 AM [facility] RDW 12.8 11.6 - 14.4 % 09/25/2013 11:06 AM [facility] MPV 10.5 9.4 - 12.4 fl 09/25/2013 11:06 AM [facility] Platelet Count 191 163 - 369 x10^9/L 09/25/2013 11:06 AM [facility] Blood BLOOD SPECIMEN / Unknown Lab Venipuncture / Unknown 09/25/2013 10:13 AM [facility] 09/25/2013 10:14 AM [facility] Maya Be MD LAB - HEMATOLOGY CHERYL KIRK [facility] [address] [place] [address], [facility] * TSH (09/25/2013 10:13 AM [facility]) Pathologist [facility] TSH 4.221 0.35 - 4.94 uIU/mL 09/25/2013 11:40 AM [facility] Blood BLOOD SPECIMEN / Unknown Lab Venipuncture / Unknown 09/25/2013 10:13 AM [facility] [facility] 09/25/2013 10:14 AM [facility] Maya Be MD LAB - CHEMISTRY [place]Z [place] [facility] [address] * T4 FREE (09/25/2013 10:13 AM [facility]) T4 Free 0.78 0.71 - 1.48 ng/dL 09/25/2013 11:40 AM [employer] Blood BLOOD SPECIMEN / Unknown Lab Venipuncture / Unknown 09/25/2013 10:13 AM [facility] [facility] 09/25/2013 10:14 AM [facility] [employer] [facility] Maya Be MD LAB - CHEMISTRY [place]UIZ [place] Performing Organization Address City/[facility] Co de Phone Number [facility] [address] * GROSS + MICRO EXAM (06/22/2012 9:00 AM CDT) Only the most recent of4 resultswithin the time period is included. Result CASE NUMBER [id number] Comment: ORDERING PHYSICIAN HARPREET MARIN SPECIMEN TYPE Colon Polyp-8mm @hepatic flexure *CLINICAL HISTORY Hematochezia, colon polyps. OPERATIVE PROCEDURE Colonoscopy with hot snare. SPECIMEN SOURCE 8 mm polyp at hepatic flexure GROSS DESCRIPTION The specimen is received in one part. Received in formalin, labeled with the patient's identification, and 8 mm polyp at hepatic flexure with hot snare is a nodular fragment of bhakta mucosal tissue measuring 0.3 x 0.2 x 0.1 cm. Submitted entirely in cassette A1. /[facility] GROSSED BY JULIUS NUÑEZ M.D. *MICROSCOPIC EXAM Fragments of colonic mucosa show crypt serration with surface maturation, architectural atypia, asymmetric proliferation and mild nuclear atypia. 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 READ BY JULIUS NUÑEZ M.D. DIAGNOSIS COLON, HEPATIC FLEXURE, SNARE POLYPECTOMY - SESSILE SERRATED ADENOMA. /[facility] RELEASED BY JULIUS NUÑEZ MISCELLANEOUS SAMPLES / Unknown 06/22/2012 9:00 AM CDT 06/22/2012 9:42 AM CDT Historical Provider LAB - PATHOLOGY/C YTOLOGY ORDERABLES Care Teams Medical Or Surgical Instrument Maker Relationship Specialty Start [place] [address] [place] [address] [place] [address] PCP - General Family Medicine 03/20/19 Piter Lau DO 2 [facility] [address] [place] [address] Cardiac Electrophysiology 03/20/19
--- OUTSIDE RECORDS SUMMARY | 2024-12-03 17:53 | XMS_ITS | Clinical Summary ---
Author Organization [facility] Address [address] [place] [address] Care Team Providers Care Housekeeper Manager Name Role Phone Casandra Foreman MD Primary Care Provider Piter Lau DO Unavailable [phone] Source Comments [facility],non-owned Affiliates and Associated Physician Practices is amultiple site organization consisting of ambulatory clinics and hospital sitesin [place], [place], [place] and [place]. This disclosure is being madepursuant to the Care Everywhere program and may not contain all information available regarding this patient. Last updated 18.[facility] Allergies Active Allergy Reactions Criticality Noted Date Comments Meperidine 02/17/2015 Niacin Rash Medium 04/21/2021 Medications * Be aware that medications may not be up to date on this document. Alwaysverify current medications with the patient. Medication Sig Dispensed Refills Start Date End Date Status Multiple Vitamin (MULTI VITAMIN DAILY PO) Take 1 Tab by mouth once daily Active CALCIUM PO Take 1,200 mg by mouth once daily Active [place]-3 Fatty Acids (FISH OIL) 1000 MG capsule Take 1,000 mg by mouth once daily Active Multiple Vitamins-Minerals (PRESERVISION AREDS PO) A ctive B Complex-C (SUPER B COMPLEX PO) Take by mouth once daily Active Coenzyme Q10 (COQ10 PO) Take 200 mg by mouth once daily Active metFORMIN (GLUCOPHAGE) 500 MG tablet Take 500 mg by mouth 2 times daily with morning and evening meal Active TURMERIC PO Take 1 capsule by mouth 2 times daily Active Vitamin D3 (CHOLECALCIFEROL) 50 MCG (2000 UT) capsule Take 2,000 Units by mouth once daily Active Zinc Chelated 50 MG TABS Take 50 mg by mouth once daily Active dilTIAZem coated beads 24hr (CARDIZEM CD) 240 MG capsule Take 1 (one) capsule by mouth once daily 90 capsule 3 04/21/2021 Active quinapril - hydroCHLOROthiazide (ACCURETIC; QUINARETIC) 20-12.5 MG tablet Take 2 (two) tablets by mouth once daily 180 tablet 5 04/21/2021 Active rosuvastatin (CRESTOR) 10 MG tablet Take 1 (one) tablet by mouth once daily 90 tablet 3 04/21/2021 Active Active Problems Problem Noted Date Diagnosed Date DM (diabetes mellitus) 02/17/2015 HTN (hypertension) 02/17/2015 Family History Medical History Relation Name Comments Cancer Father colon Hypertension Father Cancer Mother ovarion Hypertension Mother Relation Name Status Comments Father Mother Social History Tobacco Use Types Packs/Day Years [...] 36.9 C (98.4 F) 09/04/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 Respiratory Rate 18 04/21/2021 2:12 PM CDT Oxygen Saturation 96% 04/21/2021 2:12 PM CDT Inhaled Oxygen Concentration - - Weight 118.5 kg (261 lb 3.2 oz) 04/21/2021 2:12 PM CDT Height 180.3 cm (5' 11 ) 04/21/2021 2:12 PM CDT Body Mass Index 36.43 04/21/2021 2:12 PM CDT Plan of Treatment Health Maintenance Due Date Last Done Comments OGDIONNE (AGES 45-75) - COL ON CA SCREENING 1950 CT COLONOGRAPHY - COLON CA SCREENING 1950 FIT - COLON CA SCREENING 1950 FLEX SIG - COLON CA SCREENING 1950 MEDICARE AWV 12 MONTHS 1950 HEPATITIS C SCREENING 07/20/1969 DTAP/TDAP/TD VACCINES (1 - Tdap) 1970 PNEUMOCOCCAL VACCINE 50+ (1 of 2 - PCV) 1970 ZOSTER VACCINE (1 of 2) 2001 AAA SCREENING 2016 DIABETES RETINOPATHY SCREENING 03/06/2018 DIABETES-FOOT EXAM WITH MONOFILAMENT 03/06/2018 DIABETES-HGB A1C 03/06/2018 09/25/2013 DIABETES-SERUM CREATININE 03/07/20192017, 04/11/2016, 09/25/2013 COVID-19 VACCINE ( - 2023-2 5 season) 2024 INFLUENZA VACCINE (#1) 2024 DEPRESSION SCREENING 09/19/2024 DIABETES - URINE PROTEIN SCREENING 09/19/2024 Respiratory Syncytial Virus (RSV) Vaccine Pt: or over 60 yrs (1 - 1-dose 75+ series) 2026 COLON MONITORING 10/22/2026 10/22/2016, 10/22/2016 COLONOSCOPY - COLON CA SCREENING 10/22/2026 10/22/2016, 10/22/2016 Colorectal Cancer Screening 10/22/2026 HEPATITIS B VACCINE Aged Out No longe r eligible based on patient's age to complete this topic HIB VACCINE Aged Out No longer eligi ble based on patient's age to complete this topic HPV VACCINE Aged Out No longer eligi ble based on patient's age to complete this topic MENINGOCOCCAL (Group B) VACCINE SHARED DECISION-MAKING Aged Out No longer eligible based on patient's age to complete this topic MENINGOCOCCAL GROUPS A/C/Y/W VACCINE Aged Out No longer eligible b ased on patient's age to complete this topic Medical Devices Implanted Type Area Tents Assembler Device Identifier Shelf Expiration Date Model / Serial / Lot Stent Ureth Inlay Optimal 6.0fr X 26cm - Sn/A Implanted:Qty: 1 on 04/30/2016 by Lasha Card MD at [facility] Right: [employer] 10/06/2019 [id number] / N/A / [id number] Procedures Procedure Name Priority Date/Time Associated Diagnosis Comments BASIC METABOLIC PANEL (CALCIUM TOTAL) Routine 03/07/2018 8:14 AM CDT Swelling of limb ENDOSCOPY, COLON, SCREENING Routine 10/22/2016 8:37 AM [employer] AND [employer]ORTS BOOK WRITER HEMOGLOBIN A1C Routine 09/25/2013 10:13 AM [employer] AND [employer]OR[employer] BOOK WRITER Type Ii Or Unspecified Type Diabetes Mellitus Without Mention Of Complication, Not Stated As Uncontrolled (Hcc) from Last 3 Months or Most Recently Relevant to Health Maintenance Results * (ABNORMAL) BASIC METABOLIC PANEL (CALCIUM TOTAL) (03/07/2018 8:14 AM CDT) [facility] Signature Glucose 202(H) 70 - 125 mg/dL 03/07/2018 9:23 AM CDT [facility] Sodium 140 136 - 145 mmol/L 03/07/2018 9:23 AM CDT [facility] Potassium 3.9 3.4 - 4.5 mmol/L 03/07/2018 9:23 AM T [facility] Chloride 104 98 - 107 mmol/L 03/07/2018 9:23 AM CDT [facility] CO2 26 22 - 29 mmol/L 03/07/2018 9:23 AM CDT [facility] Calcium 9.2 8.4 - 10.2 mg/dL 03/07/2018 9:23 AM CDT [facility] Anion Gap 14 10 - 20 mmol/L 03/07/2018 9:23 AM CDT [facility] BUN 11.9 8.4 - 25.7 mg/dL 03/07/2018 9:23 AM T [facility] Creatinine 0.97 0.72 - 1.25 mg/dL 03/07/2018 9:23 AM CDT [facility] eGFR by MDRD >60 >60 mL/min/1.7 3m2 03/07/2018 9:23 AM CDT [facility] eGFR by MDRD >60 >60 mL/min/1.7 3m2 03/07/2018 9:23 AM CDT [facility] Blood BLOOD SPECIMEN / Unknown Lab Venipuncture / Unknown 03/07/2018 8:14 AM CDT 03/07/2018 8:49 AM CDT Piter Lau DO LAB - CHEMISTRY [place] Performing Organization Address City/[facility] Co de Phone Number [facility] [address] * (ABNORMAL) HEMOGLOBIN A1C (09/25/2013 10:13 AM [facility]) Hemoglobin A1c 6.7(H) 4.2 - 5.8 % 09/26/2013 12:20 AM [facility] Estimated Average Glucose 146 mg/dL 09/26/2013 12:20 AM [facility] Whole Blood BLOOD SPECIMEN / Unknown Lab Venipuncture / Unknown 09/25/2013 10:13 AM [employer] BOOK WRITER 09/25/2013 10:14 AM [facility] Narrative [facility] - 09/26/2013 12:20 AM [facility] HgbA1c Test Information: The Citizen Of The [place] Diabetes Association recommends a HGB A1C of < 7% and that physicians reevaluate the treatment regiment of patients with HGB A1C values consistently >8%. Maya Be MD LAB - CHEMISTRY [place] Performing Organization Address [facility] Co de Phone Number [facility] [address] from Last 3 Months or Most Recently Relevant to Health Maintenance Care Teams Housekeeper Manager Relationship Specialty Start Date End Date Casandra Foreman MD [address] [place] [address] PCP - General Family Medicine 03/20/19 Piter Lau DO [address] [facility] [address] [place] [address] Cardiac Electrophysiology 03/20/19
--- OUTSIDE RECORDS SUMMARY | 2024-12-03 17:53 | XMS_ITS | Referral Summary ---
Author Organization [facility] Address [address] [place] [address] Care Team Providers Care Registered Nurse Surgical Services Name Role Phone Casandra Foreman MD Primary Care Provider [phone] Piter Lau DO Unavailable [phone] Source Comments [facility],non-owned Affiliates and Associated Physician Practices is amultiple site organization consisting of ambulatory clinics and hospital sitesin [place], [place], [place] and [place]. This disclosure is being madepursuant to the Care Everywhere program and may not contain all information available regarding this patient. Last updated 18.[facility] Allergies Active Allergy Reactions Criticality Noted Date [...] 1,200 mg by mouth once daily Active [place]-3 Fatty Acids (FISH OIL) 1000 MG capsule [...] 36.9 C (98.4 F) 09/04/2018 3:07 PM TRAFFIC MAINTENANCE OFFICER Respiratory Rate 18 04/21/2021 2:12 PM CDT Oxygen Saturation 96% 04/21/2021 2:12 PM CDT Inhaled Oxygen Concentration - - Weight 118.5 kg (261 lb 3.2 oz) 04/21/2021 2:12 PM CDT Height 180.3 cm (5' 11 ) 04/21/2021 2:12 PM CDT Body Mass Index 36.43 04/21/2021 2:12 PM CDT Functional Status Functional Status Response Date of Assess ment Is person deaf or have serious hearing difficult y? No 10/22/2016 Is person blind or have serious difficulty seein g? No 10/22/2016 Does person have serious dif ficulty walking/climbing stairs? No 10/22/2016 Does person have difficulty dressing/bathing? No 10/22/2016 Does person have difficulty doing errands alone? No 10/22/2016 Cognitive Status Response Date of Assessm ent Does person have difficulty concentrating/remembering/making decisions? No 10/22/2016 Plan of Treatment Not on file Medical Devices Implanted Type Area Dimension Warehouse Supervisor Device Identifier Shelf Expiration Date Model / Serial / Lot Stent Ureth Inlay Optimal 6.0fr X 26cm - Sn/A Implanted:Qty: 1 on 04/30/2016 by Lasha Card MD at [facility] Right: [employer] 10/06/2019 [id number] / N/A / [id number] Procedures Procedure Name Priority Date/Time Associated Diagnosis Comments BASIC METABOLIC PANEL (CALCIUM TOTAL) Routine 03/07/2018 8:14 AM CDT [facility] of limb ENDOSCOPY, COLON, SCREENING Routine 10/22/2016 8:37 AM TRAFFIC MAINTENANCE OFFICER HEMOGLOBIN A1C Routine 09/25/2013 10:13 AM TRAFFIC MAINTENANCE OFFICER Type Ii Or Unspecified Type Diabetes Mellitus Without Mention Of Complication, Not Stated As Uncontrolled (Hcc) from Last 3 Months or Most Recently Relevant to Health Maintenance Results * (ABNORMAL) BASIC METABOLIC PANEL (CALCIUM TOTAL) (03/07/2018 8:14 AM CDT) [facility] Signature Glucose 202(H) 70 - 125 mg/dL 03/07/2018 9:23 AM CDT [facility] Sodium 140 136 - 145 mmol/L 03/07/2018 9:23 AM CDT [facility] Potassium 3.9 3.4 - 4.5 mmol/L 03/07/2018 9:23 AM CDT [facility] Chloride 104 98 - 107 mmol/L 03/07/2018 9:23 AM CDT [facility] CO2 26 22 - 29 mmol/L 03/07/2018 9:23 AM CDT [facility] Calcium 9.2 8.4 - 10.2 mg/dL 03/07/2018 9:23 AM CDT [facility] Anion Gap 14 10 - 20 mmol/L 03/07/2018 9:23 AM CDT [facility] BUN 11.9 8.4 - 25.7 mg/dL 03/07/2018 9:23 AM CDT [facility] Creatinine 0.97 0.72 - 1.25 mg/dL 03/07/2018 9:23 AM CDT [facility] eGFR by MDRD >60 >60 mL/min/1.7 3m2 03/07/2018 9:23 AM CDT [facility] eGFR by MDRD >60 >60 mL/min/1.7 3m2 03/07/2018 9:23 AM CDT [facility] Blood BLOOD SPECIMEN / Unknown Lab Venipuncture / Unknown 03/07/2018 8:14 AM CDT 03/07/2018 8:49 AM CDT Piter Lau DO LAB - CHEMISTRY [place] Performing Organization Address [facility] Co de Phone Number [facility] [address] * (ABNORMAL) HEMOGLOBIN A1C (09/25/2013 10:13 AM TRAFFIC MAINTENANCE OFFICER) Hemoglobin A1c 6.7(H) 4.2 - 5.8 % 09/26/2013 12:20 AM TRAFFIC MAINTENANCE OFFICER [facility] Estimated Average Glucose 146 mg/dL 09/26/2013 12:[address] [facility] Whole Blood BLOOD SPECIMEN / Unknown Lab Venipuncture / Unknown 09/25/2013 10:13 AM TRAFFIC MAINTENANCE OFFICER 09/25/2013 10:14 AM TRAFFIC MAINTENANCE OFFICER Narrative [facility] - 09/26/2013 12:20 AM TRAFFIC MAINTENANCE OFFICER HgbA1c Test Information: The [place] Diabetes Association recommends a HGB A1C of < 7% and that physicians reevaluate the treatment regiment of patients with HGB A1C values consistently >8%. Maya Be MD LAB - CHEMISTRY [place] Performing Organization Address City/[facility]/ZIP Co de Phone Number [facility] [address] from Last 3 Months or Most Recently Relevant to Health Maintenance Care Teams Registered Nurse Surgical Services Relationship Specialty Start Date End Date Casandra Foreman MD [address] [place] [address] [place] [address] PCP - General Family Medicine 03/20/19 Piter Lau DO 2 [facility] [address] [place] [address] Cardiac Electrophysiology 03/20/19
--- OUTSIDE RECORDS SUMMARY | 2024-12-03 17:54 | XMS_ITS | Clinical Summary ---
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 Harrison Mena MD at [facility] Screw Left: Tibia SYNTHES 204.855 / / Drill Bit, 2.5 X 400mm Explanted:Qty: 2 on 10/10/2024 by Harrison Mena MD at [facility] Right: Acetabulum SYNTHES 03.164.0 20 / / Temporary Fixation Wire, 2.5 X 220mm Explanted:Qty: 1 on 10/10/2024 by Harrison Mena MD at [facility] Right: Acetabulum SYNTHES 03.164.0 29 / / Temporary Fixation Wire, 2.5 X 150mm Explanted:Qty: 1 on 10/10/2024 by Harrison Mena MD at [facility] Right: Acetabulum SYNTHES 03.164.0 30 / / Threaded Tip Steinmann Pin Explanted:Qty: 1 on 10/29/2024 by Raad Pugh MD at [facility] Left: Shoulder [id number] 08/29/2034 [id number] / / [id number] Peripheral Screw Drill Bit Explanted:Qty: 1 on 10/29/2024 by Raad Pugh MD at [facility] Left: Shoulder [id number] 04/17/2034 [id number] / / [id number] Procedures Procedure Name Priority Date/Time Associated Diagnosis Comments URINE BACTERIA CULTURE STAT 11/29/2024 12:20 PM CDT HC URINALYSIS AUTO W/MICRO STAT 11/29/2024 12:20 PM CDT POCT GLUCOSE - VARGAS DOCKED DEVICE Routine 11/20/2024 12:48 PM ASSOCIATE PROFESSOR OF GEOGRAPHY CORONAVIRUS (COVID-19) ANTIGEN Nurse Collected Priority 11/20/2024 9:10 AM ASSOCIATE PROFESSOR OF GEOGRAPHY POCT GLUCOSE - VARGAS DOCKED DEVICE Routine 11/20/2024 6:40 AM ASSOCIATE PROFESSOR OF GEOGRAPHY OCCULT BLOOD GUAIAC DIAGNOSTIC Nurse Collected Priority 11/20/2024 12:15 AM ASSOCIATE PROFESSOR OF GEOGRAPHY POCT GLUCOSE - VARGAS DOCKED DEVICE Routine 11/19/2024 10:14 PM ASSOCIATE PROFESSOR OF GEOGRAPHY POCT GLUCOSE - VARGAS DOCKED DEVICE Routine 11/19/2024 5:50 PM ASSOCIATE PROFESSOR OF GEOGRAPHY POCT GLUCOSE - VARGAS DOCKED DEVICE Routine 11/19/2024 11:49 AM ASSOCIATE PROFESSOR OF GEOGRAPHY XR KNEE LT 2V Today 11/19/2024 7:36 AM ASSOCIATE PROFESSOR OF GEOGRAPHY POCT GLUCOSE - VARGAS DOCKED DEVICE Routine 11/19/2024 6:03 AM ASSOCIATE PROFESSOR OF GEOGRAPHY POCT GLUCOSE - VARGAS DOCKED DEVICE Routine 11/18/2024 9:08 PM ASSOCIATE PROFESSOR OF GEOGRAPHY POCT GLUCOSE - VARGAS DOCKED DEVICE Routine 11/18/2024 4:43 PM ASSOCIATE PROFESSOR OF GEOGRAPHY POCT GLUCOSE - VARGAS DOCKED DEVICE Routine 11/18/2024 11:12 AM ASSOCIATE PROFESSOR OF GEOGRAPHY POCT GLUCOSE - VARGAS DOCKED DEVICE Routine 11/18/2024 6:14 AM ASSOCIATE PROFESSOR OF GEOGRAPHY PHOSPHORUS, INORGANIC PHOSPHATE Routine 11/18/2024 3:53 AM ASSOCIATE PROFESSOR OF GEOGRAPHY MAGNESIUM Routine 11/18/2024 3:53 AM ASSOCIATE PROFESSOR OF GEOGRAPHY BASIC METABOLIC PANEL Routine 11/18/2024 3:53 AM ASSOCIATE PROFESSOR OF GEOGRAPHY CBC, AUTO, NO DIFF Routine 11/18/2024 3:53 AM ASSOCIATE PROFESSOR OF GEOGRAPHY POCT GLUCOSE - VARGAS DOCKED DEVICE Routine 11/17/2024 9:17 PM ASSOCIATE PROFESSOR OF GEOGRAPHY POCT GLUCOSE - VARGAS DOCKED DEVICE Routine 11/17/2024 4:48 PM ASSOCIATE PROFESSOR OF GEOGRAPHY POCT GLUCOSE - VARGAS DOCKED DEVICE Routine 11/17/2024 11:51 AM ASSOCIATE PROFESSOR OF GEOGRAPHY POCT GLUCOSE - VARGAS DOCKED DEVICE Routine 11/17/2024 6:14 AM ASSOCIATE PROFESSOR OF GEOGRAPHY POCT GLUCOSE - VARGAS DOCKED DEVICE Routine 11/16/2024 11:00 PM ASSOCIATE PROFESSOR OF GEOGRAPHY POCT GLUCOSE - VARGAS DOCKED DEVICE Routine 11/16/2024 9:45 PM ASSOCIATE PROFESSOR OF GEOGRAPHY POCT GLUCOSE - VARGAS DOCKED DEVICE Routine 11/16/2024 5:08 PM ASSOCIATE PROFESSOR OF GEOGRAPHY POCT GLUCOSE - VARGAS DOCKED DEVICE Routine 11/16/2024 11:34 AM ASSOCIATE PROFESSOR OF GEOGRAPHY POCT GLUCOSE - VARGAS DOCKED DEVICE Routine 11/16/2024 9:27 AM ASSOCIATE PROFESSOR OF GEOGRAPHY POCT GLUCOSE - VARGAS DOCKED DEVICE Routine 11/16/2024 6:09 AM ASSOCIATE PROFESSOR OF GEOGRAPHY POCT GLUCOSE - VARGAS DOCKED DEVICE Routine 11/15/2024 9:47 PM ASSOCIATE PROFESSOR OF GEOGRAPHY POCT GLUCOSE - VARGAS DOCKED DEVICE Routine 11/15/2024 4:29 PM ASSOCIATE PROFESSOR OF GEOGRAPHY XR PELVIS MIN 3V Today 11/15/2024 4:15 PM ASSOCIATE PROFESSOR OF GEOGRAPHY POCT GLUCOSE - VARGAS DOCKED DEVICE Routine 11/15/2024 11:38 AM ASSOCIATE PROFESSOR OF GEOGRAPHY POCT GLUCOSE - VARGAS DOCKED DEVICE Routine 11/15/2024 5:45 AM ASSOCIATE PROFESSOR OF GEOGRAPHY POCT GLUCOSE - VARGAS DOCKED DEVICE Routine 11/14/2024 9:24 PM ASSOCIATE PROFESSOR OF GEOGRAPHY POCT GLUCOSE - VARGAS DOCKED DEVICE Routine 11/14/2024 8:13 PM ASSOCIATE PROFESSOR OF GEOGRAPHY POCT GLUCOSE - VARGAS DOCKED DEVICE Routine 11/14/2024 4:23 PM ASSOCIATE PROFESSOR OF GEOGRAPHY POCT GLUCOSE - VARGAS DOCKED DEVICE Routine 11/14/2024 11:39 AM ASSOCIATE PROFESSOR OF GEOGRAPHY POCT GLUCOSE - VARGAS DOCKED DEVICE Routine 11/14/2024 5:53 AM ASSOCIATE PROFESSOR OF GEOGRAPHY BMP WITHOUT GLUCOSE Routine 11/14/2024 1:19 AM ASSOCIATE PROFESSOR OF GEOGRAPHY POCT GLUCOSE - VARGAS DOCKED DEVICE Routine 11/13/2024 10:04 PM ASSOCIATE PROFESSOR OF GEOGRAPHY POCT GLUCOSE - VARGAS DOCKED DEVICE Routine 11/13/2024 4:31 PM ASSOCIATE PROFESSOR OF GEOGRAPHY POCT GLUCOSE - VARGAS DOCKED DEVICE Routine 11/13/2024 10:59 AM ASSOCIATE PROFESSOR OF GEOGRAPHY PHOSPHORUS, INORGANIC PHOSPHATE Routine 11/13/2024 10:45 AM ASSOCIATE PROFESSOR OF GEOGRAPHY MAGNESIUM Routine 11/13/2024 10:45 AM ASSOCIATE PROFESSOR OF GEOGRAPHY BASIC METABOLIC PANEL Routine 11/13/2024 10:45 AM ASSOCIATE PROFESSOR OF GEOGRAPHY POCT GLUCOSE - VARGAS DOCKED DEVICE Routine 11/13/2024 6:04 AM ASSOCIATE PROFESSOR OF GEOGRAPHY POCT GLUCOSE - VARGAS DOCKED DEVICE Routine 11/12/2024 9:48 PM ASSOCIATE PROFESSOR OF GEOGRAPHY POCT GLUCOSE - VARGAS DOCKED DEVICE Routine 11/12/2024 4:04 PM ASSOCIATE PROFESSOR OF GEOGRAPHY POCT GLUCOSE - VARGAS DOCKED DEVICE Routine 11/12/2024 11:16 AM ASSOCIATE PROFESSOR OF GEOGRAPHY POCT GLUCOSE - VARGAS DOCKED DEVICE Routine 11/12/2024 7:17 AM ASSOCIATE PROFESSOR OF GEOGRAPHY POCT GLUCOSE - VARGAS DOCKED DEVICE Routine 11/12/2024 6:17 AM ASSOCIATE PROFESSOR OF GEOGRAPHY POCT GLUCOSE - VARGAS DOCKED DEVICE Routine 11/11/2024 7:40 PM ASSOCIATE PROFESSOR OF GEOGRAPHY POCT GLUCOSE - VARGAS DOCKED DEVICE Routine 11/11/2024 4:51 PM ASSOCIATE PROFESSOR OF GEOGRAPHY POCT GLUCOSE - VARGAS DOCKED DEVICE Routine 11/11/2024 11:22 AM ASSOCIATE PROFESSOR OF GEOGRAPHY POCT GLUCOSE - VARGAS DOCKED DEVICE Routine 11/11/2024 6:06 AM ASSOCIATE PROFESSOR OF GEOGRAPHY PHOSPHORUS, INORGANIC PHOSPHATE Routine 11/11/2024 2:45 AM ASSOCIATE PROFESSOR OF GEOGRAPHY MAGNESIUM Routine 11/11/2024 2:45 AM ASSOCIATE PROFESSOR OF GEOGRAPHY CBC W/DIFF AUTOMATED Routine 11/11/2024 2:45 AM ASSOCIATE PROFESSOR OF GEOGRAPHY BASIC METABOLIC PANEL Routine 11/11/2024 2:45 AM ASSOCIATE PROFESSOR OF GEOGRAPHY POCT GLUCOSE - VARGAS DOCKED DEVICE Routine 11/10/2024 9:18 PM ASSOCIATE PROFESSOR OF GEOGRAPHY POCT GLUCOSE - VARGAS DOCKED DEVICE Routine 11/10/2024 5:28 PM ASSOCIATE PROFESSOR OF GEOGRAPHY POCT GLUCOSE - VARGAS DOCKED DEVICE Routine 11/10/2024 11:04 AM ASSOCIATE PROFESSOR OF GEOGRAPHY POCT GLUCOSE - VARGAS DOCKED DEVICE Routine 11/10/2024 6:36 AM ASSOCIATE PROFESSOR OF GEOGRAPHY POCT GLUCOSE - VARGAS DOCKED DEVICE Routine 11/09/2024 9:20 PM ASSOCIATE PROFESSOR OF GEOGRAPHY POCT GLUCOSE - VARGAS DOCKED DEVICE Routine 11/09/2024 3:58 PM ASSOCIATE PROFESSOR OF GEOGRAPHY POCT GLUCOSE - VARGAS DOCKED DEVICE Routine 11/09/2024 11:38 AM ASSOCIATE PROFESSOR OF GEOGRAPHY POCT GLUCOSE - VARGAS DOCKED DEVICE Routine 11/09/2024 6:01 AM ASSOCIATE PROFESSOR OF GEOGRAPHY BASIC METABOLIC PANEL Routine 11/09/2024 1:33 AM ASSOCIATE PROFESSOR OF GEOGRAPHY POCT GLUCOSE - VARGAS DOCKED DEVICE Routine 11/08/2024 9:37 PM ASSOCIATE PROFESSOR OF GEOGRAPHY POCT GLUCOSE - VARGAS DOCKED DEVICE Routine 11/08/2024 5:04 PM ASSOCIATE PROFESSOR OF GEOGRAPHY POCT GLUCOSE - VARGAS DOCKED DEVICE Routine 11/08/2024 12:03 PM ASSOCIATE PROFESSOR OF GEOGRAPHY POCT GLUCOSE - VARGAS DOCKED DEVICE Routine 11/08/2024 6:27 AM ASSOCIATE PROFESSOR OF GEOGRAPHY POCT GLUCOSE - VARGAS DOCKED DEVICE Routine 11/08/2024 5:43 AM ASSOCIATE PROFESSOR OF GEOGRAPHY POCT GLUCOSE - VARGAS DOCKED DEVICE Routine 11/07/2024 9:33 PM ASSOCIATE PROFESSOR OF GEOGRAPHY POCT GLUCOSE - VARGAS DOCKED DEVICE Routine 11/07/2024 4:05 PM ASSOCIATE PROFESSOR OF GEOGRAPHY POCT GLUCOSE - VARGAS DOCKED DEVICE Routine 11/07/2024 12:20 PM ASSOCIATE PROFESSOR OF GEOGRAPHY POCT GLUCOSE - VARGAS DOCKED DEVICE Routine 11/07/2024 5:44 AM ASSOCIATE PROFESSOR OF GEOGRAPHY POCT GLUCOSE - VARGAS DOCKED DEVICE Routine 11/06/2024 9:10 PM ASSOCIATE PROFESSOR OF GEOGRAPHY POCT GLUCOSE - VARGAS DOCKED DEVICE Routine 11/06/2024 4:18 PM ASSOCIATE PROFESSOR OF GEOGRAPHY HC PROTEIN TOTAL URINE Nurse Collected Priority 11/06/2024 2:18 PM ASSOCIATE PROFESSOR OF GEOGRAPHY POCT GLUCOSE - VARGAS DOCKED DEVICE Routine 11/06/2024 11:46 AM ASSOCIATE PROFESSOR OF GEOGRAPHY PHOSPHORUS, INORGANIC PHOSPHATE Routine 11/06/2024 8:44 AM ASSOCIATE PROFESSOR OF GEOGRAPHY MAGNESIUM Routine 11/06/2024 8:44 AM ASSOCIATE PROFESSOR OF GEOGRAPHY BASIC METABOLIC PANEL Routine 11/06/2024 8:44 AM ASSOCIATE PROFESSOR OF GEOGRAPHY CBC W/DIFF AUTOMATED Routine 11/06/2024 8:44 AM ASSOCIATE PROFESSOR OF GEOGRAPHY POCT GLUCOSE - VARGAS DOCKED DEVICE Routine 11/06/2024 6:14 AM ASSOCIATE PROFESSOR OF GEOGRAPHY POCT GLUCOSE - VARGAS DOCKED DEVICE Routine 11/05/2024 10:50 PM ASSOCIATE PROFESSOR OF GEOGRAPHY ECG 12-LEAD Routine 11/05/2024 1:11 PM ASSOCIATE PROFESSOR OF GEOGRAPHY POCT GLUCOSE - VARGAS DOCKED DEVICE Routine 11/05/2024 11:52 AM ASSOCIATE PROFESSOR OF GEOGRAPHY HC PROTEIN TOTAL URINE Nurse Collected Priority 11/05/2024 11:00 AM ASSOCIATE PROFESSOR OF GEOGRAPHY ALBUMIN URINE RANDOM W/CREATININE Nurse Collected Priority 11/05/2024 11:00 AM ASSOCIATE PROFESSOR OF GEOGRAPHY POCT GLUCOSE - VARGAS DOCKED DEVICE Routine 11/05/2024 5:50 AM ASSOCIATE PROFESSOR OF GEOGRAPHY POCT GLUCOSE - VARGAS DOCKED DEVICE Routine 11/04/2024 8:54 PM ASSOCIATE PROFESSOR OF GEOGRAPHY POCT GLUCOSE - VARGAS DOCKED DEVICE Routine 11/04/2024 4:42 PM ASSOCIATE PROFESSOR OF GEOGRAPHY POCT GLUCOSE - VARGAS DOCKED DEVICE Routine 11/04/2024 11:32 AM ASSOCIATE PROFESSOR OF GEOGRAPHY CBC W/DIFF AUTOMATED STAT 11/04/2024 9:37 AM ASSOCIATE PROFESSOR OF GEOGRAPHY HEPATITIS B SURFACE AG, EIA Routine 11/04/2024 9:37 AM ASSOCIATE PROFESSOR OF GEOGRAPHY ECG 12-LEAD Routine 11/04/2024 9:29 AM ASSOCIATE PROFESSOR OF GEOGRAPHY BASIC METABOLIC PANEL Routine 11/04/2024 8:23 AM ASSOCIATE PROFESSOR OF GEOGRAPHY PHOSPHORUS, INORGANIC PHOSPHATE Routine 11/04/2024 8:23 AM ASSOCIATE PROFESSOR OF GEOGRAPHY MAGNESIUM Routine 11/04/2024 8:23 AM ASSOCIATE PROFESSOR OF GEOGRAPHY POCT GLUCOSE - VARGAS DOCKED DEVICE Routine 11/04/2024 6:02 AM ASSOCIATE PROFESSOR OF GEOGRAPHY POCT GLUCOSE - VARGAS DOCKED DEVICE Routine 11/03/2024 9:19 PM ASSOCIATE PROFESSOR OF GEOGRAPHY POCT GLUCOSE - VARGAS DOCKED DEVICE Routine 11/03/2024 4:06 PM ASSOCIATE PROFESSOR OF GEOGRAPHY POCT GLUCOSE - VARGAS DOCKED DEVICE Routine 11/03/2024 11:43 AM ASSOCIATE PROFESSOR OF GEOGRAPHY IMMUNOFIXATION Routine 11/03/2024 10:06 AM ASSOCIATE PROFESSOR OF GEOGRAPHY HEPATITIS B SURFACE ANTIBODY Routine 11/03/2024 10:06 AM ASSOCIATE PROFESSOR OF GEOGRAPHY HEPATITIS C ANTIBODY Routine 11/03/2024 10:06 AM ASSOCIATE PROFESSOR OF GEOGRAPHY ANTI-GBM Routine 11/03/2024 10:06 AM ASSOCIATE PROFESSOR OF GEOGRAPHY ANCA SCREEN W/RFX TITER Routine 11/03/2024 10:06 AM ASSOCIATE PROFESSOR OF GEOGRAPHY PROTEIN, ELECTROPHORESIS Routine 11/03/2024 10:06 AM ASSOCIATE PROFESSOR OF GEOGRAPHY ANTINUCLEAR ANTIBODY WI RFX Routine 11/03/2024 10:06 AM ASSOCIATE PROFESSOR OF GEOGRAPHY CBC W/DIFF AUTOMATED STAT 11/03/2024 10:06 AM ASSOCIATE PROFESSOR OF GEOGRAPHY COMPREHENSIVE METABOLIC PANEL Routine 11/03/2024 10:06 AM ASSOCIATE PROFESSOR OF GEOGRAPHY MAGNESIUM Routine 11/03/2024 10:06 AM ASSOCIATE PROFESSOR OF GEOGRAPHY PHOSPHORUS, INORGANIC PHOSPHATE Routine 11/03/2024 10:06 AM ASSOCIATE PROFESSOR OF GEOGRAPHY POCT GLUCOSE - VARGAS DOCKED DEVICE Routine 11/03/2024 6:42 AM ASSOCIATE PROFESSOR OF GEOGRAPHY POCT GLUCOSE - VARGAS DOCKED DEVICE Routine 11/02/2024 10:05 PM ASSOCIATE PROFESSOR OF GEOGRAPHY POCT GLUCOSE - VARGAS DOCKED DEVICE Routine 11/02/2024 4:14 PM ASSOCIATE PROFESSOR OF GEOGRAPHY US RETROPERITONEAL LTD Today 11/02/2024 2:50 PM ASSOCIATE PROFESSOR OF GEOGRAPHY XR CHEST PORTABLE LEILA 11/02/2024 12:00 PM ASSOCIATE PROFESSOR OF GEOGRAPHY POCT GLUCOSE - VARGAS DOCKED DEVICE Routine 11/02/2024 11:06 AM ASSOCIATE PROFESSOR OF GEOGRAPHY POCT GLUCOSE - VARGAS DOCKED DEVICE Routine 11/02/2024 6:34 AM ASSOCIATE PROFESSOR OF GEOGRAPHY PHOSPHORUS, INORGANIC PHOSPHATE Routine 11/02/2024 5:29 AM ASSOCIATE PROFESSOR OF GEOGRAPHY MAGNESIUM Routine 11/02/2024 5:29 AM ASSOCIATE PROFESSOR OF GEOGRAPHY BASIC METABOLIC PANEL Routine 11/02/2024 5:29 AM ASSOCIATE PROFESSOR OF GEOGRAPHY CBC W/DIFF AUTOMATED Routine 11/02/2024 5:29 AM ASSOCIATE PROFESSOR OF GEOGRAPHY ALBUMIN, SERUM Routine 11/02/2024 5:29 AM ASSOCIATE PROFESSOR OF GEOGRAPHY CULTURE, CATH TIP Nurse Collected Priority 11/01/2024 10:45 PM ASSOCIATE PROFESSOR OF GEOGRAPHY POCT GLUCOSE - VARGAS DOCKED DEVICE Routine 11/01/2024 9:32 PM ASSOCIATE PROFESSOR OF GEOGRAPHY POCT GLUCOSE - VARGAS DOCKED DEVICE Routine 11/01/2024 4:43 PM ASSOCIATE PROFESSOR OF GEOGRAPHY POCT GLUCOSE - VARGAS DOCKED DEVICE Routine 11/01/2024 10:48 AM ASSOCIATE PROFESSOR OF GEOGRAPHY HEPARIN, ANTI XA, UFH TIMED 11/01/2024 8:07 AM ASSOCIATE PROFESSOR OF GEOGRAPHY POCT GLUCOSE - VARGAS DOCKED DEVICE Routine 11/01/2024 6:43 AM ASSOCIATE PROFESSOR OF GEOGRAPHY HEPARIN, ANTI XA, UFH TIMED 11/01/2024 1:31 AM ASSOCIATE PROFESSOR OF GEOGRAPHY PHOSPHORUS, INORGANIC PHOSPHATE Routine 11/01/2024 1:31 AM ASSOCIATE PROFESSOR OF GEOGRAPHY MAGNESIUM Routine 11/01/2024 1:31 AM ASSOCIATE PROFESSOR OF GEOGRAPHY BASIC METABOLIC PANEL Routine 11/01/2024 1:31 AM ASSOCIATE PROFESSOR OF GEOGRAPHY CBC W/DIFF AUTOMATED Routine 11/01/2024 1:31 AM ASSOCIATE PROFESSOR OF GEOGRAPHY PROTHROMBIN TIME, VENOUS Routine 11/01/2024 1:31 AM ASSOCIATE PROFESSOR OF GEOGRAPHY POCT GLUCOSE - VARGAS DOCKED DEVICE Routine 10/31/2024 11:03 PM ASSOCIATE PROFESSOR OF GEOGRAPHY HEPARIN, ANTI XA, UFH TIMED 10/31/2024 10:50 PM ASSOCIATE PROFESSOR OF GEOGRAPHY POCT GLUCOSE - VARGAS DOCKED DEVICE Routine 10/31/2024 5:34 PM ASSOCIATE PROFESSOR OF GEOGRAPHY HEPARIN, ANTI XA, UFH TIMED 10/31/2024 4:45 PM ASSOCIATE PROFESSOR OF GEOGRAPHY HEPARIN, ANTI XA, UFH TIMED 10/31/2024 11:00 AM ASSOCIATE PROFESSOR OF GEOGRAPHY POCT GLUCOSE - VARGAS DOCKED DEVICE Routine 10/31/2024 10:46 AM ASSOCIATE PROFESSOR OF GEOGRAPHY HC URINALYSIS AUTO W/MICRO Nurse Collected Priority 10/31/2024 10:27 AM ASSOCIATE PROFESSOR OF GEOGRAPHY XR PELVIS MIN 3V Today 10/31/2024 8:58 AM ASSOCIATE PROFESSOR OF GEOGRAPHY POCT GLUCOSE - VARGAS DOCKED DEVICE Routine 10/31/2024 6:29 AM ASSOCIATE PROFESSOR OF GEOGRAPHY HEPARIN, ANTI XA, UFH TIMED 10/31/2024 5:25 AM ASSOCIATE PROFESSOR OF GEOGRAPHY CBC W/DIFF AUTOMATED Routine 10/31/2024 5:25 AM ASSOCIATE PROFESSOR OF GEOGRAPHY BASIC METABOLIC PANEL Routine 10/31/2024 5:25 AM ASSOCIATE PROFESSOR OF GEOGRAPHY PROTHROMBIN TIME, VENOUS Routine 10/31/2024 5:25 AM ASSOCIATE PROFESSOR OF GEOGRAPHY POCT GLUCOSE - VARGAS DOCKED DEVICE Routine 10/30/2024 11:11 PM ASSOCIATE PROFESSOR OF GEOGRAPHY HEPARIN, ANTI XA, UFH TIMED 10/30/2024 9:46 PM ASSOCIATE PROFESSOR OF GEOGRAPHY HEPARIN, ANTI XA, UFH TIMED 10/30/2024 5:10 PM ASSOCIATE PROFESSOR OF GEOGRAPHY POCT GLUCOSE - VARGAS DOCKED DEVICE Routine 10/30/2024 4:23 PM ASSOCIATE PROFESSOR OF GEOGRAPHY POCT GLUCOSE - VARGAS DOCKED DEVICE Routine 10/30/2024 10:52 AM ASSOCIATE PROFESSOR OF GEOGRAPHY PROTHROMBIN TIME, VENOUS STAT 10/30/2024 8:09 AM ASSOCIATE PROFESSOR OF GEOGRAPHY HEPARIN, ANTI XA, UFH STAT 10/30/2024 8:09 AM ASSOCIATE PROFESSOR OF GEOGRAPHY CBC W/DIFF AUTOMATED STAT 10/30/2024 8:09 AM ASSOCIATE PROFESSOR OF GEOGRAPHY POTASSIUM, SERUM TIMED 10/30/2024 8:09 AM ASSOCIATE PROFESSOR OF GEOGRAPHY CALCIUM, IONIZED TIMED 10/30/2024 8:09 AM ASSOCIATE PROFESSOR OF GEOGRAPHY POCT GLUCOSE - VARGAS DOCKED DEVICE Routine 10/30/2024 6:55 AM ASSOCIATE PROFESSOR OF GEOGRAPHY CBC W/DIFF AUTOMATED Routine 10/30/2024 4:41 AM ASSOCIATE PROFESSOR OF GEOGRAPHY BASIC METABOLIC PANEL Routine 10/30/2024 4:41 AM ASSOCIATE PROFESSOR OF GEOGRAPHY HEPARIN, ANTI XA, UFH TIMED 10/30/2024 4:41 AM ASSOCIATE PROFESSOR OF GEOGRAPHY PROTHROMBIN TIME, VENOUS Routine 10/30/2024 4:41 AM ASSOCIATE PROFESSOR OF GEOGRAPHY POCT GLUCOSE - VARGAS DOCKED DEVICE Routine 10/29/2024 11:54 PM ASSOCIATE PROFESSOR OF GEOGRAPHY POCT GLUCOSE - VARGAS DOCKED DEVICE Routine 10/29/2024 9:39 PM ASSOCIATE PROFESSOR OF GEOGRAPHY SURG XR FLUOROSCOPY Routine 10/29/2024 8:56 PM ASSOCIATE PROFESSOR OF GEOGRAPHY TRANSFUSE RED BLOOD CELLS STAT 10/29/2024 8:23 PM ASSOCIATE PROFESSOR OF GEOGRAPHY TRANSFUSE RED BLOOD CELLS STAT 10/29/2024 7:59 PM ASSOCIATE PROFESSOR OF GEOGRAPHY MI AN PERIPHERAL BLOCK SINGLE-SHOT Routine 10/29/2024 7:30 PM ASSOCIATE PROFESSOR OF GEOGRAPHY RECONSTR TOTAL SHOULDER IMPLANT 10/29/2024 6:49 PM ASSOCIATE PROFESSOR OF GEOGRAPHY HUMERAL FRACTURE Case Notes [place] [email or web address] - resident has notified repRep contacted by hospital POCT GLUCOSE - VARGAS DOCKED DEVICE Routine 10/29/2024 5:55 PM ASSOCIATE PROFESSOR OF GEOGRAPHY POCT GLUCOSE - VARGAS DOCKED DEVICE Routine 10/29/2024 11:20 AM ASSOCIATE PROFESSOR OF GEOGRAPHY POCT GLUCOSE - VARGAS DOCKED DEVICE Routine 10/29/2024 6:36 AM ASSOCIATE PROFESSOR OF GEOGRAPHY CBC W/DIFF AUTOMATED Routine 10/29/2024 4:15 AM ASSOCIATE PROFESSOR OF GEOGRAPHY BASIC METABOLIC PANEL Routine 10/29/2024 4:15 AM ASSOCIATE PROFESSOR OF GEOGRAPHY PHOSPHORUS, INORGANIC PHOSPHATE Routine 10/29/2024 4:15 AM ASSOCIATE PROFESSOR OF GEOGRAPHY MAGNESIUM Routine 10/29/2024 4:15 AM ASSOCIATE PROFESSOR OF GEOGRAPHY HEPARIN, ANTI XA, UFH TIMED 10/29/2024 4:15 AM ASSOCIATE PROFESSOR OF GEOGRAPHY PROTHROMBIN TIME, VENOUS Routine 10/29/2024 4:15 AM ASSOCIATE PROFESSOR OF GEOGRAPHY POCT GLUCOSE - VARGAS DOCKED DEVICE Routine 10/28/2024 8:06 PM ASSOCIATE PROFESSOR OF GEOGRAPHY POCT GLUCOSE - VARGAS DOCKED DEVICE Routine 10/28/2024 6:32 PM ASSOCIATE PROFESSOR OF GEOGRAPHY POCT GLUCOSE - VARGAS DOCKED DEVICE Routine 10/28/2024 3:54 PM ASSOCIATE PROFESSOR OF GEOGRAPHY TYPE & SCREEN Routine 10/28/2024 2:35 PM ASSOCIATE PROFESSOR OF GEOGRAPHY POCT GLUCOSE - VARGAS DOCKED DEVICE Routine 10/28/2024 11:49 AM ASSOCIATE PROFESSOR OF GEOGRAPHY POCT GLUCOSE - VARGAS DOCKED DEVICE Routine 10/28/2024 9:00 AM ASSOCIATE PROFESSOR OF GEOGRAPHY POCT GLUCOSE - VARGAS DOCKED DEVICE Routine 10/28/2024 5:10 AM ASSOCIATE PROFESSOR OF GEOGRAPHY CULTURE, BACTERIA, BLOOD TIMED 10/28/2024 4:45 AM ASSOCIATE PROFESSOR OF GEOGRAPHY CULTURE, BACTERIA, BLOOD TIMED 10/28/2024 4:33 AM ASSOCIATE PROFESSOR OF GEOGRAPHY PHOSPHORUS, INORGANIC PHOSPHATE Routine 10/28/2024 3:56 AM ASSOCIATE PROFESSOR OF GEOGRAPHY MAGNESIUM Routine 10/28/2024 3:56 AM ASSOCIATE PROFESSOR OF GEOGRAPHY BASIC METABOLIC PANEL Routine 10/28/2024 3:56 AM ASSOCIATE PROFESSOR OF GEOGRAPHY CBC W/DIFF AUTOMATED Routine 10/28/2024 3:56 AM ASSOCIATE PROFESSOR OF GEOGRAPHY HEPARIN, ANTI XA, UFH TIMED 10/28/2024 3:56 AM ASSOCIATE PROFESSOR OF GEOGRAPHY PROTHROMBIN TIME, VENOUS Routine 10/28/2024 3:56 AM ASSOCIATE PROFESSOR OF GEOGRAPHY URINE BACTERIA CULTURE Nurse Collected Priority 10/28/2024 3:13 AM ASSOCIATE PROFESSOR OF GEOGRAPHY HC URINALYSIS AUTO W/MICRO Nurse Collected Priority 10/28/2024 3:13 AM ASSOCIATE PROFESSOR OF GEOGRAPHY POCT GLUCOSE - VARGAS DOCKED DEVICE Routine 10/27/2024 8:08 PM ASSOCIATE PROFESSOR OF GEOGRAPHY POCT GLUCOSE - VARGAS DOCKED DEVICE Routine 10/27/2024 4:42 PM ASSOCIATE PROFESSOR OF GEOGRAPHY POCT GLUCOSE - VARGAS DOCKED DEVICE Routine 10/27/2024 10:50 AM ASSOCIATE PROFESSOR OF GEOGRAPHY POCT GLUCOSE - VARGAS DOCKED DEVICE Routine 10/27/2024 5:16 AM ASSOCIATE PROFESSOR OF GEOGRAPHY PROTHROMBIN TIME, VENOUS Routine 10/27/2024 2:26 AM ASSOCIATE PROFESSOR OF GEOGRAPHY HEPARIN, ANTI XA, UFH TIMED 10/27/2024 2:23 AM ASSOCIATE PROFESSOR OF GEOGRAPHY PHOSPHORUS, INORGANIC PHOSPHATE Routine 10/27/2024 2:23 AM ASSOCIATE PROFESSOR OF GEOGRAPHY MAGNESIUM Routine 10/27/2024 2:23 AM ASSOCIATE PROFESSOR OF GEOGRAPHY BASIC METABOLIC PANEL Routine 10/27/2024 2:23 AM ASSOCIATE PROFESSOR OF GEOGRAPHY CBC W/DIFF AUTOMATED Routine 10/27/2024 2:23 AM ASSOCIATE PROFESSOR OF GEOGRAPHY POCT GLUCOSE - VARGAS DOCKED DEVICE Routine 10/26/2024 10:18 PM ASSOCIATE PROFESSOR OF GEOGRAPHY HEPARIN, ANTI XA, UFH STAT 10/26/2024 5:55 PM ASSOCIATE PROFESSOR OF GEOGRAPHY POCT GLUCOSE - VARGAS DOCKED DEVICE Routine 10/26/2024 3:58 PM ASSOCIATE PROFESSOR OF GEOGRAPHY POCT GLUCOSE - VARGAS DOCKED DEVICE Routine 10/26/2024 10:58 AM ASSOCIATE PROFESSOR OF GEOGRAPHY PROTHROMBIN TIME, VENOUS STAT 10/26/2024 8:48 AM ASSOCIATE PROFESSOR OF GEOGRAPHY HEPARIN, ANTI XA, UFH STAT 10/26/2024 8:48 AM ASSOCIATE PROFESSOR OF GEOGRAPHY BASIC METABOLIC PANEL STAT 10/26/2024 8:48 AM ASSOCIATE PROFESSOR OF GEOGRAPHY CBC W/DIFF AUTOMATED STAT 10/26/2024 8:48 AM ASSOCIATE PROFESSOR OF GEOGRAPHY POCT GLUCOSE - VARGAS DOCKED DEVICE Routine 10/26/2024 5:59 AM ASSOCIATE PROFESSOR OF GEOGRAPHY CLOSTRIDIUM DIFFICILE Nurse Collected Priority 10/26/2024 3:19 AM ASSOCIATE PROFESSOR OF GEOGRAPHY PROTHROMBIN TIME, VENOUS Routine 10/25/2024 9:24 PM ASSOCIATE PROFESSOR OF GEOGRAPHY POCT GLUCOSE - VARGAS DOCKED DEVICE Routine 10/25/2024 8:40 PM ASSOCIATE PROFESSOR OF GEOGRAPHY POCT GLUCOSE - VARGAS DOCKED DEVICE Routine 10/25/2024 4:37 PM ASSOCIATE PROFESSOR OF GEOGRAPHY POCT GLUCOSE - VARGAS DOCKED DEVICE Routine 10/25/2024 11:56 AM ASSOCIATE PROFESSOR OF GEOGRAPHY POCT GLUCOSE - VARGAS DOCKED DEVICE Routine 10/25/2024 6:22 AM ASSOCIATE PROFESSOR OF GEOGRAPHY POCT GLUCOSE - VARGAS DOCKED DEVICE Routine 10/24/2024 9:22 PM ASSOCIATE PROFESSOR OF GEOGRAPHY POCT GLUCOSE - VARGAS DOCKED DEVICE Routine 10/24/2024 5:10 AM ASSOCIATE PROFESSOR OF GEOGRAPHY CBC W/DIFF AUTOMATED Routine 10/24/2024 4:27 AM ASSOCIATE PROFESSOR OF GEOGRAPHY PHOSPHORUS, INORGANIC PHOSPHATE Routine 10/24/2024 4:27 AM ASSOCIATE PROFESSOR OF GEOGRAPHY MAGNESIUM Routine 10/24/2024 4:27 AM ASSOCIATE PROFESSOR OF GEOGRAPHY PREALBUMIN Routine 10/24/2024 4:27 AM ASSOCIATE PROFESSOR OF GEOGRAPHY BASIC METABOLIC PANEL Routine 10/24/2024 4:27 AM ASSOCIATE PROFESSOR OF GEOGRAPHY POCT GLUCOSE - VARGAS DOCKED DEVICE Routine 10/23/2024 9:51 PM ASSOCIATE PROFESSOR OF GEOGRAPHY CT UPPER EXT LT WO CON STAT 10/23/2024 8:24 PM ASSOCIATE PROFESSOR OF GEOGRAPHY POCT GLUCOSE - VARGAS DOCKED DEVICE Routine 10/23/2024 6:16 PM ASSOCIATE PROFESSOR OF GEOGRAPHY TYPE & SCREEN Routine 10/23/2024 6:09 PM ASSOCIATE PROFESSOR OF GEOGRAPHY POCT GLUCOSE - VARGAS DOCKED DEVICE Routine 10/23/2024 1:37 PM ASSOCIATE PROFESSOR OF GEOGRAPHY XR PELVIS MIN 3V Today 10/23/2024 11:33 AM ASSOCIATE PROFESSOR OF GEOGRAPHY USV RICK DUPLEX UP EXT [place] Today 10/23/2024 9:55 AM ASSOCIATE PROFESSOR OF GEOGRAPHY PHOSPHORUS, INORGANIC PHOSPHATE Routine 10/23/2024 2:31 AM ASSOCIATE PROFESSOR OF GEOGRAPHY MAGNESIUM Routine 10/23/2024 2:31 AM ASSOCIATE PROFESSOR OF GEOGRAPHY POCT GLUCOSE - VARGAS DOCKED DEVICE Routine 10/22/2024 9:20 PM ASSOCIATE PROFESSOR OF GEOGRAPHY POCT GLUCOSE - VARGAS DOCKED DEVICE Routine 10/22/2024 4:37 PM ASSOCIATE PROFESSOR OF GEOGRAPHY POCT GLUCOSE - VARGAS DOCKED DEVICE Routine 10/22/2024 1:54 PM ASSOCIATE PROFESSOR OF GEOGRAPHY POCT GLUCOSE - VARGAS DOCKED DEVICE Routine 10/22/2024 8:14 AM ASSOCIATE PROFESSOR OF GEOGRAPHY BASIC METABOLIC PANEL Routine 10/22/2024 1:46 AM ASSOCIATE PROFESSOR OF GEOGRAPHY CBC, AUTO, NO DIFF Routine 10/22/2024 1:46 AM ASSOCIATE PROFESSOR OF GEOGRAPHY PHOSPHORUS, INORGANIC PHOSPHATE Routine 10/22/2024 1:46 AM ASSOCIATE PROFESSOR OF GEOGRAPHY MAGNESIUM Routine 10/22/2024 1:46 AM ASSOCIATE PROFESSOR OF GEOGRAPHY POCT GLUCOSE - VARGAS DOCKED DEVICE Routine 10/21/2024 9:04 PM ASSOCIATE PROFESSOR OF GEOGRAPHY POCT GLUCOSE - VARGAS DOCKED DEVICE Routine 10/21/2024 4:19 PM ASSOCIATE PROFESSOR OF GEOGRAPHY POCT GLUCOSE - VARGAS DOCKED DEVICE Routine 10/21/2024 11:47 AM ASSOCIATE PROFESSOR OF GEOGRAPHY CALCIUM, IONIZED Routine 10/21/2024 10:36 AM ASSOCIATE PROFESSOR OF GEOGRAPHY POCT GLUCOSE - VARGAS DOCKED DEVICE Routine 10/21/2024 6:50 AM ASSOCIATE PROFESSOR OF GEOGRAPHY BASIC METABOLIC PANEL Routine 10/21/2024 2:41 AM ASSOCIATE PROFESSOR OF GEOGRAPHY CBC, AUTO, NO DIFF Routine 10/21/2024 2:41 AM ASSOCIATE PROFESSOR OF GEOGRAPHY PHOSPHORUS, INORGANIC PHOSPHATE Routine 10/21/2024 2:41 AM ASSOCIATE PROFESSOR OF GEOGRAPHY MAGNESIUM Routine 10/21/2024 2:41 AM ASSOCIATE PROFESSOR OF GEOGRAPHY POCT GLUCOSE - VARGAS DOCKED DEVICE Routine 10/20/2024 8:58 PM ASSOCIATE PROFESSOR OF GEOGRAPHY POCT GLUCOSE - VARGAS DOCKED DEVICE Routine 10/20/2024 5:09 PM ASSOCIATE PROFESSOR OF GEOGRAPHY POCT GLUCOSE - VARGAS DOCKED DEVICE Routine 10/20/2024 11:27 AM ASSOCIATE PROFESSOR OF GEOGRAPHY POCT GLUCOSE - VARGAS DOCKED DEVICE Routine 10/20/2024 6:16 AM ASSOCIATE PROFESSOR OF GEOGRAPHY IRON SAT PANEL (IRON,IBC,%SAT) Routine 10/20/2024 2:42 AM ASSOCIATE PROFESSOR OF GEOGRAPHY CBC W/DIFF AUTOMATED Routine 10/20/2024 2:42 AM ASSOCIATE PROFESSOR OF GEOGRAPHY PHOSPHORUS, INORGANIC PHOSPHATE Routine 10/20/2024 2:42 AM ASSOCIATE PROFESSOR OF GEOGRAPHY MAGNESIUM Routine 10/20/2024 2:42 AM ASSOCIATE PROFESSOR OF GEOGRAPHY POCT GLUCOSE - VARGAS DOCKED DEVICE Routine 10/19/2024 8:26 PM ASSOCIATE PROFESSOR OF GEOGRAPHY POCT GLUCOSE - VARGAS DOCKED DEVICE Routine 10/19/2024 4:42 PM ASSOCIATE PROFESSOR OF GEOGRAPHY POCT GLUCOSE - VARGAS DOCKED DEVICE Routine 10/19/2024 12:02 PM ASSOCIATE PROFESSOR OF GEOGRAPHY POCT GLUCOSE - VARGAS DOCKED DEVICE Routine 10/19/2024 5:05 AM ASSOCIATE PROFESSOR OF GEOGRAPHY HEPARIN, ANTI XA, UFH TIMED 10/19/2024 3:35 AM ASSOCIATE PROFESSOR OF GEOGRAPHY CBC W/DIFF AUTOMATED Routine 10/19/2024 3:35 AM ASSOCIATE PROFESSOR OF GEOGRAPHY BASIC METABOLIC PANEL Routine 10/19/2024 3:35 AM ASSOCIATE PROFESSOR OF GEOGRAPHY PHOSPHORUS, INORGANIC PHOSPHATE Routine 10/19/2024 3:35 AM ASSOCIATE PROFESSOR OF GEOGRAPHY MAGNESIUM Routine 10/19/2024 3:35 AM ASSOCIATE PROFESSOR OF GEOGRAPHY POCT GLUCOSE - VARGAS DOCKED DEVICE Routine 10/18/2024 11:28 PM ASSOCIATE PROFESSOR OF GEOGRAPHY CBC, AUTO, NO DIFF Routine 10/18/2024 9:55 PM ASSOCIATE PROFESSOR OF GEOGRAPHY POCT GLUCOSE - VARGAS DOCKED DEVICE Routine 10/18/2024 5:22 PM ASSOCIATE PROFESSOR OF GEOGRAPHY CBC W/DIFF AUTOMATED TIMED 10/18/2024 2:30 PM ASSOCIATE PROFESSOR OF GEOGRAPHY POCT GLUCOSE - VARGAS DOCKED DEVICE Routine 10/18/2024 12:46 PM ASSOCIATE PROFESSOR OF GEOGRAPHY HEPARIN, ANTI XA, UFH TIMED 10/18/2024 10:00 AM ASSOCIATE PROFESSOR OF GEOGRAPHY POCT GLUCOSE - VARGAS DOCKED DEVICE Routine 10/18/2024 5:31 AM ASSOCIATE PROFESSOR OF GEOGRAPHY HEPARIN, ANTI XA, UFH TIMED 10/18/2024 3:30 AM ASSOCIATE PROFESSOR OF GEOGRAPHY CBC W/DIFF AUTOMATED Routine 10/18/2024 3:30 AM ASSOCIATE PROFESSOR OF GEOGRAPHY BASIC METABOLIC PANEL Routine 10/18/2024 3:30 AM ASSOCIATE PROFESSOR OF GEOGRAPHY PHOSPHORUS, INORGANIC PHOSPHATE Routine 10/18/2024 3:30 AM ASSOCIATE PROFESSOR OF GEOGRAPHY MAGNESIUM Routine 10/18/2024 3:30 AM ASSOCIATE PROFESSOR OF GEOGRAPHY POCT GLUCOSE - VARGAS DOCKED DEVICE Routine 10/17/2024 11:18 PM ASSOCIATE PROFESSOR OF GEOGRAPHY PROTHROMBIN TIME, VENOUS STAT 10/17/2024 10:00 PM ASSOCIATE PROFESSOR OF GEOGRAPHY CBC, AUTO, NO DIFF STAT 10/17/2024 10:00 PM ASSOCIATE PROFESSOR OF GEOGRAPHY HEPARIN, ANTI XA, UFH STAT 10/17/2024 7:50 PM ASSOCIATE PROFESSOR OF GEOGRAPHY POCT GLUCOSE - VARGAS DOCKED DEVICE Routine 10/17/2024 6:10 PM ASSOCIATE PROFESSOR OF GEOGRAPHY XR KNEE LT 2V TIMED 10/17/2024 5:50 PM ASSOCIATE PROFESSOR OF GEOGRAPHY XR SHOULDER LT MIN 2V TIMED 10/17/2024 5:50 PM ASSOCIATE PROFESSOR OF GEOGRAPHY XR PELVIS 1 OR 2 VIEWS TIMED 10/17/2024 5:50 PM ASSOCIATE PROFESSOR OF GEOGRAPHY POCT GLUCOSE - VARGAS DOCKED DEVICE Routine 10/17/2024 4:44 PM ASSOCIATE PROFESSOR OF GEOGRAPHY POCT GLUCOSE - VARGAS DOCKED DEVICE Routine 10/17/2024 3:34 PM ASSOCIATE PROFESSOR OF GEOGRAPHY SURG XR FLUOROSCOPY Routine 10/17/2024 2:14 PM ASSOCIATE PROFESSOR OF GEOGRAPHY ART LINE PLACEMENT Routine 10/17/2024 11:58 AM ASSOCIATE PROFESSOR OF GEOGRAPHY OPEN REDUCTION INTERNAL FIXATION ACETABULUM 10/17/2024 11:11 AM ASSOCIATE PROFESSOR OF GEOGRAPHY RIGHT ACETABULUM FRACTURE Case Notes ROSA FLATTOPLATERAL [id number] INCH C-ARMSYNTHES- REP AWARE PER EMERY CONTACTED BY HOSPITAL TYPE & SCREEN STAT 10/17/2024 11:08 AM ASSOCIATE PROFESSOR OF GEOGRAPHY POCT GLUCOSE - VARGAS DOCKED DEVICE Routine 10/17/2024 11:06 AM ASSOCIATE PROFESSOR OF GEOGRAPHY ECG 12-LEAD STAT 10/17/2024 10:59 AM ASSOCIATE PROFESSOR OF GEOGRAPHY POCT GLUCOSE - VARGAS DOCKED DEVICE Routine 10/17/2024 5:21 AM ASSOCIATE PROFESSOR OF GEOGRAPHY CBC W/DIFF AUTOMATED Routine 10/17/2024 4:21 AM ASSOCIATE PROFESSOR OF GEOGRAPHY BASIC METABOLIC PANEL Routine 10/17/2024 4:21 AM ASSOCIATE PROFESSOR OF GEOGRAPHY HEPARIN, ANTI XA, UFH TIMED 10/17/2024 4:21 AM ASSOCIATE PROFESSOR OF GEOGRAPHY PROTHROMBIN TIME, VENOUS Routine 10/17/2024 4:21 AM ASSOCIATE PROFESSOR OF GEOGRAPHY PHOSPHORUS, INORGANIC PHOSPHATE Routine 10/17/2024 4:21 AM ASSOCIATE PROFESSOR OF GEOGRAPHY MAGNESIUM Routine 10/17/2024 4:21 AM ASSOCIATE PROFESSOR OF GEOGRAPHY POCT GLUCOSE - VARGAS DOCKED DEVICE Routine 10/16/2024 11:13 PM ASSOCIATE PROFESSOR OF GEOGRAPHY POCT GLUCOSE - VARGAS DOCKED DEVICE Routine 10/16/2024 9:16 PM ASSOCIATE PROFESSOR OF GEOGRAPHY POCT GLUCOSE - VARGAS DOCKED DEVICE Routine 10/16/2024 6:28 PM ASSOCIATE PROFESSOR OF GEOGRAPHY POCT GLUCOSE - VARGAS DOCKED DEVICE Routine 10/16/2024 11:09 AM ASSOCIATE PROFESSOR OF GEOGRAPHY PROTHROMBIN TIME, VENOUS STAT 10/16/2024 6:08 AM ASSOCIATE PROFESSOR OF GEOGRAPHY HEPARIN, ANTI XA, UFH STAT 10/16/2024 6:08 AM ASSOCIATE PROFESSOR OF GEOGRAPHY POCT GLUCOSE - VARGAS DOCKED DEVICE Routine 10/16/2024 5:26 AM ASSOCIATE PROFESSOR OF GEOGRAPHY CBC W/DIFF AUTOMATED Routine 10/16/2024 4:14 AM ASSOCIATE PROFESSOR OF GEOGRAPHY BASIC METABOLIC PANEL Routine 10/16/2024 4:14 AM ASSOCIATE PROFESSOR OF GEOGRAPHY HEPARIN, ANTI XA, UFH TIMED 10/16/2024 4:14 AM ASSOCIATE PROFESSOR OF GEOGRAPHY PROTHROMBIN TIME, VENOUS Routine 10/16/2024 4:14 AM ASSOCIATE PROFESSOR OF GEOGRAPHY PHOSPHORUS, INORGANIC PHOSPHATE Routine 10/16/2024 4:14 AM ASSOCIATE PROFESSOR OF GEOGRAPHY MAGNESIUM Routine 10/16/2024 4:14 AM ASSOCIATE PROFESSOR OF GEOGRAPHY POCT GLUCOSE - VARGAS DOCKED DEVICE Routine 10/15/2024 11:52 PM ASSOCIATE PROFESSOR OF GEOGRAPHY POCT GLUCOSE - VARGAS DOCKED DEVICE Routine 10/15/2024 6:49 PM ASSOCIATE PROFESSOR OF GEOGRAPHY XR PELVIS MIN 3V TIMED 10/15/2024 4:36 PM ASSOCIATE PROFESSOR OF GEOGRAPHY POCT GLUCOSE - VARGAS DOCKED DEVICE Routine 10/15/2024 3:22 PM ASSOCIATE PROFESSOR OF GEOGRAPHY POCT GLUCOSE - VARGAS DOCKED DEVICE Routine 10/15/2024 1:33 PM ASSOCIATE PROFESSOR OF GEOGRAPHY USV RICK DUPLEX LOW EXT [place] Today 10/15/2024 12:52 PM ASSOCIATE PROFESSOR OF GEOGRAPHY POCT GLUCOSE - VARGAS DOCKED DEVICE Routine 10/15/2024 11:16 AM ASSOCIATE PROFESSOR OF GEOGRAPHY HEPARIN, ANTI XA, UFH TIMED 10/15/2024 4:30 AM ASSOCIATE PROFESSOR OF GEOGRAPHY PROTHROMBIN TIME, VENOUS Routine 10/15/2024 4:30 AM ASSOCIATE PROFESSOR OF GEOGRAPHY CBC W/DIFF AUTOMATED Routine 10/15/2024 4:30 AM ASSOCIATE PROFESSOR OF GEOGRAPHY BASIC METABOLIC PANEL Routine 10/15/2024 4:30 AM ASSOCIATE PROFESSOR OF GEOGRAPHY PHOSPHORUS, INORGANIC PHOSPHATE Routine 10/15/2024 4:30 AM ASSOCIATE PROFESSOR OF GEOGRAPHY MAGNESIUM Routine 10/15/2024 4:30 AM ASSOCIATE PROFESSOR OF GEOGRAPHY POCT GLUCOSE - VARGAS DOCKED DEVICE Routine 10/14/2024 11:33 PM ASSOCIATE PROFESSOR OF GEOGRAPHY HC OCCULT BLOOD FECAL SCRN Nurse Collected Priority 10/14/2024 6:30 PM ASSOCIATE PROFESSOR OF GEOGRAPHY POCT GLUCOSE - VARGAS DOCKED DEVICE Routine 10/14/2024 5:32 PM ASSOCIATE PROFESSOR OF GEOGRAPHY HEMOGLOBIN AND HEMATOCRIT Routine 10/14/2024 5:25 PM ASSOCIATE PROFESSOR OF GEOGRAPHY HEPARIN, ANTI XA, UFH TIMED 10/14/2024 5:25 PM ASSOCIATE PROFESSOR OF GEOGRAPHY HEPARIN, ANTI XA, UFH TIMED 10/14/2024 11:40 AM ASSOCIATE PROFESSOR OF GEOGRAPHY HEMOGLOBIN AND HEMATOCRIT Routine 10/14/2024 11:40 AM ASSOCIATE PROFESSOR OF GEOGRAPHY POCT GLUCOSE - VARGAS DOCKED DEVICE Routine 10/14/2024 11:02 AM ASSOCIATE PROFESSOR OF GEOGRAPHY POCT ACUTE ARTERIAL PANEL Routine 10/14/2024 8:54 AM ASSOCIATE PROFESSOR OF GEOGRAPHY POCT GLUCOSE - VARGAS DOCKED DEVICE Routine 10/14/2024 6:18 AM ASSOCIATE PROFESSOR OF GEOGRAPHY HEPARIN, ANTI XA, UFH TIMED 10/14/2024 4:46 AM ASSOCIATE PROFESSOR OF GEOGRAPHY PROTHROMBIN TIME, VENOUS Routine 10/14/2024 4:46 AM ASSOCIATE PROFESSOR OF GEOGRAPHY CBC W/DIFF AUTOMATED Routine 10/14/2024 4:46 AM ASSOCIATE PROFESSOR OF GEOGRAPHY BASIC METABOLIC PANEL Routine 10/14/2024 4:46 AM ASSOCIATE PROFESSOR OF GEOGRAPHY PHOSPHORUS, INORGANIC PHOSPHATE Routine 10/14/2024 4:46 AM ASSOCIATE PROFESSOR OF GEOGRAPHY MAGNESIUM Routine 10/14/2024 4:46 AM ASSOCIATE PROFESSOR OF GEOGRAPHY POCT GLUCOSE - VARGAS DOCKED DEVICE Routine 10/13/2024 11:22 PM ASSOCIATE PROFESSOR OF GEOGRAPHY CBC, AUTO, NO DIFF Routine 10/13/2024 11:20 PM ASSOCIATE PROFESSOR OF GEOGRAPHY PROTHROMBIN TIME, VENOUS STAT 10/13/2024 11:20 PM ASSOCIATE PROFESSOR OF GEOGRAPHY HEPARIN, ANTI XA, UFH STAT 10/13/2024 11:20 PM ASSOCIATE PROFESSOR OF GEOGRAPHY PRO-BRAIN NATRIURETIC PEPTIDE Routine 10/13/2024 9:23 PM ASSOCIATE PROFESSOR OF GEOGRAPHY THYROID STIM HORMONE TSH Routine 10/13/2024 9:23 PM ASSOCIATE PROFESSOR OF GEOGRAPHY CARDIAC PROFILE Routine 10/13/2024 9:23 PM ASSOCIATE PROFESSOR OF GEOGRAPHY PHOSPHORUS, INORGANIC PHOSPHATE STAT 10/13/2024 9:23 PM ASSOCIATE PROFESSOR OF GEOGRAPHY MAGNESIUM STAT 10/13/2024 9:23 PM ASSOCIATE PROFESSOR OF GEOGRAPHY BASIC METABOLIC PANEL STAT 10/13/2024 9:23 PM ASSOCIATE PROFESSOR OF GEOGRAPHY ECG 12-LEAD STAT 10/13/2024 8:32 PM ASSOCIATE PROFESSOR OF GEOGRAPHY POCT GLUCOSE - VARGAS DOCKED DEVICE Routine 10/13/2024 5:07 PM ASSOCIATE PROFESSOR OF GEOGRAPHY POCT GLUCOSE - VARGAS DOCKED DEVICE Routine 10/13/2024 11:27 AM ASSOCIATE PROFESSOR OF GEOGRAPHY XR CHEST PORTABLE STAT 10/13/2024 10:33 AM ASSOCIATE PROFESSOR OF GEOGRAPHY CULTURE, CATH TIP Nurse Collected Priority 10/13/2024 9:54 AM ASSOCIATE PROFESSOR OF GEOGRAPHY USV VAST TEAM PICC INSERT >5YR Routine 10/13/2024 8:40 AM ASSOCIATE PROFESSOR OF GEOGRAPHY XR CHEST PORTABLE Routine 10/13/2024 5:46 AM ASSOCIATE PROFESSOR OF GEOGRAPHY POCT GLUCOSE - VARGAS DOCKED DEVICE Routine 10/13/2024 4:59 AM ASSOCIATE PROFESSOR OF GEOGRAPHY BASIC METABOLIC PANEL Routine 10/13/2024 4:45 AM ASSOCIATE PROFESSOR OF GEOGRAPHY CBC W/DIFF AUTOMATED Routine 10/13/2024 4:45 AM ASSOCIATE PROFESSOR OF GEOGRAPHY VANCOMYCIN TIMED 10/13/2024 4:45 AM ASSOCIATE PROFESSOR OF GEOGRAPHY PHOSPHORUS, INORGANIC PHOSPHATE Routine 10/13/2024 4:45 AM ASSOCIATE PROFESSOR OF GEOGRAPHY MAGNESIUM Routine 10/13/2024 4:45 AM ASSOCIATE PROFESSOR OF GEOGRAPHY URINE BACTERIA CULTURE Nurse Collected Priority 10/13/2024 1:35 AM ASSOCIATE PROFESSOR OF GEOGRAPHY POCT GLUCOSE - VARGAS DOCKED DEVICE Routine 10/12/2024 11:05 PM ASSOCIATE PROFESSOR OF GEOGRAPHY XR CHEST PORTABLE Today 10/12/2024 8:48 PM ASSOCIATE PROFESSOR OF GEOGRAPHY PHOSPHORUS, INORGANIC PHOSPHATE STAT 10/12/2024 8:37 PM ASSOCIATE PROFESSOR OF GEOGRAPHY MAGNESIUM STAT 10/12/2024 8:37 PM ASSOCIATE PROFESSOR OF GEOGRAPHY BASIC METABOLIC PANEL STAT 10/12/2024 8:37 PM ASSOCIATE PROFESSOR OF GEOGRAPHY POCT GLUCOSE - VARGAS DOCKED DEVICE Routine 10/12/2024 4:06 PM ASSOCIATE PROFESSOR OF GEOGRAPHY POCT GLUCOSE - VARGAS DOCKED DEVICE Routine 10/12/2024 11:12 AM ASSOCIATE PROFESSOR OF GEOGRAPHY MRSA SCREENING Nurse Collected Priority 10/12/2024 9:00 AM ASSOCIATE PROFESSOR OF GEOGRAPHY CBC W/DIFF AUTOMATED Routine 10/12/2024 6:52 AM ASSOCIATE PROFESSOR OF GEOGRAPHY POCT GLUCOSE - VARGAS DOCKED DEVICE Routine 10/12/2024 5:15 AM ASSOCIATE PROFESSOR OF GEOGRAPHY BASIC METABOLIC PANEL Routine 10/12/2024 5:00 AM ASSOCIATE PROFESSOR OF GEOGRAPHY HEMOGLOBIN, GLYCOSYLATED Routine 10/12/2024 5:00 AM ASSOCIATE PROFESSOR OF GEOGRAPHY PHOSPHORUS, INORGANIC PHOSPHATE Routine 10/12/2024 5:00 AM ASSOCIATE PROFESSOR OF GEOGRAPHY MAGNESIUM Routine 10/12/2024 5:00 AM ASSOCIATE PROFESSOR OF GEOGRAPHY POCT GLUCOSE - VARGAS DOCKED DEVICE Routine 10/11/2024 11:52 PM ASSOCIATE PROFESSOR OF GEOGRAPHY ECG 12-LEAD Routine 10/11/2024 7:06 PM ASSOCIATE PROFESSOR OF GEOGRAPHY POCT GLUCOSE - VARGAS DOCKED DEVICE Routine 10/11/2024 5:03 PM ASSOCIATE PROFESSOR OF GEOGRAPHY HEMOGLOBIN AND HEMATOCRIT Routine 10/11/2024 5:00 PM ASSOCIATE PROFESSOR OF GEOGRAPHY HC URINALYSIS AUTO W/MICRO Nurse Collected Priority 10/11/2024 12:15 PM ASSOCIATE PROFESSOR OF GEOGRAPHY POCT ACUTE ARTERIAL PANEL Routine 10/11/2024 12:11 PM ASSOCIATE PROFESSOR OF GEOGRAPHY POCT GLUCOSE - VARGAS DOCKED DEVICE Routine 10/11/2024 10:27 AM ASSOCIATE PROFESSOR OF GEOGRAPHY XR KNEE LT 2V TIMED 10/11/2024 5:32 AM ASSOCIATE PROFESSOR OF GEOGRAPHY XR SHOULDER LT 3V TIMED 10/11/2024 5:32 AM ASSOCIATE PROFESSOR OF GEOGRAPHY CBC W/DIFF AUTOMATED Routine 10/11/2024 5:31 AM ASSOCIATE PROFESSOR OF GEOGRAPHY BASIC METABOLIC PANEL Routine 10/11/2024 5:31 AM ASSOCIATE PROFESSOR OF GEOGRAPHY LACTIC ACID Routine 10/11/2024 5:31 AM ASSOCIATE PROFESSOR OF GEOGRAPHY PHOSPHORUS, INORGANIC PHOSPHATE Routine 10/11/2024 5:31 AM ASSOCIATE PROFESSOR OF GEOGRAPHY MAGNESIUM Routine 10/11/2024 5:31 AM ASSOCIATE PROFESSOR OF GEOGRAPHY POCT GLUCOSE - VARGAS DOCKED DEVICE Routine 10/11/2024 5:14 AM ASSOCIATE PROFESSOR OF GEOGRAPHY POCT GLUCOSE - VARGAS DOCKED DEVICE Routine 10/11/2024 12:24 AM ASSOCIATE PROFESSOR OF GEOGRAPHY CT PEL WO CON STAT 10/10/2024 10:58 PM ASSOCIATE PROFESSOR OF GEOGRAPHY XR CHEST PORTABLE LEILA 10/10/2024 7:20 PM ASSOCIATE PROFESSOR OF GEOGRAPHY CK (CPK) STAT 10/10/2024 5:10 PM ASSOCIATE PROFESSOR OF GEOGRAPHY CALCIUM, IONIZED STAT 10/10/2024 5:10 PM ASSOCIATE PROFESSOR OF GEOGRAPHY PHOSPHORUS, INORGANIC PHOSPHATE STAT 10/10/2024 5:10 PM ASSOCIATE PROFESSOR OF GEOGRAPHY MAGNESIUM STAT 10/10/2024 5:10 PM ASSOCIATE PROFESSOR OF GEOGRAPHY CBC W/DIFF AUTOMATED STAT 10/10/2024 5:10 PM ASSOCIATE PROFESSOR OF GEOGRAPHY PROTHROMBIN TIME, VENOUS STAT 10/10/2024 5:10 PM ASSOCIATE PROFESSOR OF GEOGRAPHY LACTIC ACID STAT 10/10/2024 5:10 PM ASSOCIATE PROFESSOR OF GEOGRAPHY COMPREHENSIVE METABOLIC PANEL STAT 10/10/2024 5:10 PM ASSOCIATE PROFESSOR OF GEOGRAPHY XR CHEST PORTABLE STAT 10/10/2024 5:08 PM ASSOCIATE PROFESSOR OF GEOGRAPHY POCT ACUTE ARTERIAL PANEL Routine 10/10/2024 5:04 PM ASSOCIATE PROFESSOR OF GEOGRAPHY POCT GLUCOSE - VARGAS DOCKED DEVICE Routine 10/10/2024 5:03 PM ASSOCIATE PROFESSOR OF GEOGRAPHY POCT EG7 BLD GAS ARTERIAL TEMP ERMA Routine 10/10/2024 3:50 PM ASSOCIATE PROFESSOR OF GEOGRAPHY POCT GLUCOSE - VARGAS DOCKED DEVICE Routine 10/10/2024 3:49 PM ASSOCIATE PROFESSOR OF GEOGRAPHY SURG XR FLUOROSCOPY Routine 10/10/2024 3:26 PM ASSOCIATE PROFESSOR OF GEOGRAPHY POCT EG7 BLD GAS ARTERIAL TEMP ERMA Routine 10/10/2024 2:51 PM ASSOCIATE PROFESSOR OF GEOGRAPHY POCT GLUCOSE - VARGAS DOCKED DEVICE Routine 10/10/2024 2:50 PM ASSOCIATE PROFESSOR OF GEOGRAPHY TRANSFUSE FRESH FROZEN PLASMA Routine 10/10/2024 2:21 PM ASSOCIATE PROFESSOR OF GEOGRAPHY ORDER FRESH FROZEN PLASMA Routine 10/10/2024 2:10 PM ASSOCIATE PROFESSOR OF GEOGRAPHY TRANSFUSE RED BLOOD CELLS STAT 10/10/2024 2:02 PM ASSOCIATE PROFESSOR OF GEOGRAPHY POCT EG7 BLD GAS ARTERIAL TEMP ERMA Routine 10/10/2024 1:42 PM ASSOCIATE PROFESSOR OF GEOGRAPHY POCT GLUCOSE - VARGAS DOCKED DEVICE Routine 10/10/2024 1:42 PM ASSOCIATE PROFESSOR OF GEOGRAPHY POCT EG7 BLD GAS ARTERIAL TEMP ERMA Routine 10/10/2024 11:36 AM ASSOCIATE PROFESSOR OF GEOGRAPHY OPEN REDUCTION INTERNAL FIXATION ACETABULUM 10/10/2024 10:42 AM ASSOCIATE PROFESSOR OF GEOGRAPHY RIGHT ACETABULUM FRACTURE Case Notes ROSA FLAT TOPSUPINEC-ARM FROM PATIENTS LEFT SID[place]CODIE- DR CALLING REP12 C-ARMREP CONTACTED BY HOSPITAL ORDER FRESH FROZEN PLASMA Routine 10/10/2024 10:34 AM ASSOCIATE PROFESSOR OF GEOGRAPHY CULTURE, BACTERIA, BLOOD TIMED 10/10/2024 10:10 AM ASSOCIATE PROFESSOR OF GEOGRAPHY COMPREHENSIVE METABOLIC PANEL STAT 10/10/2024 10:10 AM ASSOCIATE PROFESSOR OF GEOGRAPHY CBC, AUTO, NO DIFF STAT 10/10/2024 10:10 AM ASSOCIATE PROFESSOR OF GEOGRAPHY CULTURE LOWER RESPIRATORY W/GRAM STAIN Nurse Collected Priority 10/10/2024 8:35 AM ASSOCIATE PROFESSOR OF GEOGRAPHY CULTURE, BACTERIA, BLOOD TIMED 10/10/2024 8:01 AM ASSOCIATE PROFESSOR OF GEOGRAPHY POCT GLUCOSE - VARGAS DOCKED DEVICE Routine 10/10/2024 5:19 AM ASSOCIATE PROFESSOR OF GEOGRAPHY PHOSPHORUS, INORGANIC PHOSPHATE Routine 10/10/2024 4:04 AM ASSOCIATE PROFESSOR OF GEOGRAPHY MAGNESIUM Routine 10/10/2024 4:04 AM ASSOCIATE PROFESSOR OF GEOGRAPHY POCT GLUCOSE - VARGAS DOCKED DEVICE Routine 10/09/2024 11:20 PM ASSOCIATE PROFESSOR OF GEOGRAPHY POCT GLUCOSE - VARGAS DOCKED DEVICE Routine 10/09/2024 5:10 PM ASSOCIATE PROFESSOR OF GEOGRAPHY POCT GLUCOSE - VARGAS DOCKED DEVICE Routine 10/09/2024 11:14 AM ASSOCIATE PROFESSOR OF GEOGRAPHY POCT GLUCOSE - VARGAS DOCKED DEVICE Routine 10/09/2024 5:38 AM ASSOCIATE PROFESSOR OF GEOGRAPHY BASIC METABOLIC PANEL Routine 10/09/2024 3:46 AM ASSOCIATE PROFESSOR OF GEOGRAPHY PHOSPHORUS, INORGANIC PHOSPHATE Routine 10/09/2024 3:46 AM ASSOCIATE PROFESSOR OF GEOGRAPHY MAGNESIUM Routine 10/09/2024 3:46 AM ASSOCIATE PROFESSOR OF GEOGRAPHY POCT GLUCOSE - VARGAS DOCKED DEVICE Routine 10/09/2024 2:24 AM ASSOCIATE PROFESSOR OF GEOGRAPHY MAGNESIUM TIMED 10/09/2024 12:12 AM ASSOCIATE PROFESSOR OF GEOGRAPHY BASIC METABOLIC PANEL TIMED 10/09/2024 12:12 AM ASSOCIATE PROFESSOR OF GEOGRAPHY POCT GLUCOSE - VARGAS DOCKED DEVICE Routine 10/09/2024 12:08 AM ASSOCIATE PROFESSOR OF GEOGRAPHY POCT GLUCOSE - VARGAS DOCKED DEVICE Routine 10/08/2024 11:25 PM ASSOCIATE PROFESSOR OF GEOGRAPHY POCT GLUCOSE - VARGAS DOCKED DEVICE Routine 10/08/2024 10:51 PM ASSOCIATE PROFESSOR OF GEOGRAPHY POCT GLUCOSE - VARGAS DOCKED DEVICE Routine 10/08/2024 9:53 PM ASSOCIATE PROFESSOR OF GEOGRAPHY POCT GLUCOSE - VARGAS DOCKED DEVICE Routine 10/08/2024 8:57 PM ASSOCIATE PROFESSOR OF GEOGRAPHY MAGNESIUM TIMED 10/08/2024 8:47 PM ASSOCIATE PROFESSOR OF GEOGRAPHY BASIC METABOLIC PANEL TIMED 10/08/2024 8:47 PM ASSOCIATE PROFESSOR OF GEOGRAPHY POCT GLUCOSE - VARGAS DOCKED DEVICE Routine 10/08/2024 7:56 PM ASSOCIATE PROFESSOR OF GEOGRAPHY POCT GLUCOSE - VARGAS DOCKED DEVICE Routine 10/08/2024 7:36 PM ASSOCIATE PROFESSOR OF GEOGRAPHY POCT GLUCOSE - VARGAS DOCKED DEVICE Routine 10/08/2024 6:09 PM ASSOCIATE PROFESSOR OF GEOGRAPHY POCT GLUCOSE - VARGAS DOCKED DEVICE Routine 10/08/2024 5:31 PM ASSOCIATE PROFESSOR OF GEOGRAPHY POCT GLUCOSE - VARGAS DOCKED DEVICE Routine 10/08/2024 5:13 PM ASSOCIATE PROFESSOR OF GEOGRAPHY XR ABD UPRIGHT Today 10/08/2024 4:12 PM ASSOCIATE PROFESSOR OF GEOGRAPHY XR SHOULDER LT 3V Today 10/08/2024 4:09 PM ASSOCIATE PROFESSOR OF GEOGRAPHY POCT GLUCOSE - VARGAS DOCKED DEVICE Routine 10/08/2024 4:03 PM ASSOCIATE PROFESSOR OF GEOGRAPHY ECG 12-LEAD Routine 10/08/2024 3:26 PM ASSOCIATE PROFESSOR OF GEOGRAPHY POCT ACUTE ARTERIAL PANEL Routine 10/08/2024 3:24 PM ASSOCIATE PROFESSOR OF GEOGRAPHY PROTHROMBIN TIME, VENOUS Routine 10/08/2024 3:10 PM ASSOCIATE PROFESSOR OF GEOGRAPHY CALCIUM, IONIZED Routine 10/08/2024 3:10 PM ASSOCIATE PROFESSOR OF GEOGRAPHY LACTIC ACID TIMED 10/08/2024 3:10 PM ASSOCIATE PROFESSOR OF GEOGRAPHY CBC W/DIFF AUTOMATED Routine 10/08/2024 3:09 PM ASSOCIATE PROFESSOR OF GEOGRAPHY PHOSPHORUS, INORGANIC PHOSPHATE Routine 10/08/2024 3:09 PM ASSOCIATE PROFESSOR OF GEOGRAPHY MAGNESIUM Routine 10/08/2024 3:09 PM ASSOCIATE PROFESSOR OF GEOGRAPHY COMPREHENSIVE METABOLIC PANEL Routine 10/08/2024 3:09 PM ASSOCIATE PROFESSOR OF GEOGRAPHY POCT GLUCOSE - VARGAS DOCKED DEVICE Routine 10/08/2024 3:01 PM ASSOCIATE PROFESSOR OF GEOGRAPHY POCT GLUCOSE - VARGAS DOCKED DEVICE Routine 10/08/2024 1:39 PM ASSOCIATE PROFESSOR OF GEOGRAPHY TRANSFUSE RED BLOOD CELLS Routine 10/08/2024 1:15 PM ASSOCIATE PROFESSOR OF GEOGRAPHY POCT GLUCOSE - VARGAS DOCKED DEVICE Routine 10/08/2024 1:08 PM ASSOCIATE PROFESSOR OF GEOGRAPHY SURG XR FLUOROSCOPY Routine 10/08/2024 1:00 PM ASSOCIATE PROFESSOR OF GEOGRAPHY TRANSFUSE RED BLOOD CELLS Routine 10/08/2024 1:00 PM ASSOCIATE PROFESSOR OF GEOGRAPHY POCT ACUTE ARTERIAL PANEL Routine 10/08/2024 12:22 PM ASSOCIATE PROFESSOR OF GEOGRAPHY POCT GLUCOSE - VARGAS DOCKED DEVICE Routine 10/08/2024 12:13 PM ASSOCIATE PROFESSOR OF GEOGRAPHY POCT ACUTE ARTERIAL PANEL Routine 10/08/2024 10:55 AM ASSOCIATE PROFESSOR OF GEOGRAPHY TRANSFUSE RED BLOOD CELLS Routine 10/08/2024 10:11 AM ASSOCIATE PROFESSOR OF GEOGRAPHY POCT GLUCOSE - VARGAS DOCKED DEVICE Routine 10/08/2024 9:53 AM ASSOCIATE PROFESSOR OF GEOGRAPHY TRANSFUSE RED BLOOD CELLS Routine 10/08/2024 9:43 AM ASSOCIATE PROFESSOR OF GEOGRAPHY OPEN REDUCTION INTERNAL FIXATION POSTERIOR ACETABULUM 10/08/2024 7:56 AM ASSOCIATE PROFESSOR OF GEOGRAPHY LEFT ACETABULUM FRACTURE Case Notes PRONE ON ROSA FLAT TOP TABLE SET ROOM UP LIKE RIGHT SIDE SINCE PT WILL BE PRONE 12 C ARM SHANE Barker MD TO CONTACT REP CONTACTED BY HOSPITAL POCT ACUTE ARTERIAL PANEL Routine 10/08/2024 7:04 AM ASSOCIATE PROFESSOR OF GEOGRAPHY POCT GLUCOSE - VARGAS DOCKED DEVICE Routine 10/08/2024 7:03 AM ASSOCIATE PROFESSOR OF GEOGRAPHY COMPREHENSIVE METABOLIC PANEL Routine 10/08/2024 3:45 AM ASSOCIATE PROFESSOR OF GEOGRAPHY CBC W/DIFF AUTOMATED Routine 10/08/2024 3:45 AM ASSOCIATE PROFESSOR OF GEOGRAPHY PHOSPHORUS, INORGANIC PHOSPHATE Routine 10/08/2024 3:45 AM ASSOCIATE PROFESSOR OF GEOGRAPHY MAGNESIUM Routine 10/08/2024 3:45 AM ASSOCIATE PROFESSOR OF GEOGRAPHY POCT GLUCOSE - VARGAS DOCKED DEVICE Routine 10/07/2024 11:29 PM ASSOCIATE PROFESSOR OF GEOGRAPHY TYPE & SCREEN Routine 10/07/2024 11:28 PM ASSOCIATE PROFESSOR OF GEOGRAPHY POCT GLUCOSE - VARGAS DOCKED DEVICE Routine 10/07/2024 6:23 PM ASSOCIATE PROFESSOR OF GEOGRAPHY BASIC METABOLIC PANEL Routine 10/07/2024 5:00 PM ASSOCIATE PROFESSOR OF GEOGRAPHY PHOSPHORUS, INORGANIC PHOSPHATE TIMED 10/07/2024 5:00 PM ASSOCIATE PROFESSOR OF GEOGRAPHY POCT ACUTE ARTERIAL PANEL Routine 10/07/2024 12:10 PM ASSOCIATE PROFESSOR OF GEOGRAPHY POCT GLUCOSE - VARGAS DOCKED DEVICE Routine 10/07/2024 12:09 PM ASSOCIATE PROFESSOR OF GEOGRAPHY XR CHEST PORTABLE STAT 10/07/2024 11:02 AM ASSOCIATE PROFESSOR OF GEOGRAPHY POCT ACUTE ARTERIAL PANEL Routine 10/07/2024 4:56 AM ASSOCIATE PROFESSOR OF GEOGRAPHY CK (CPK) Routine 10/07/2024 4:55 AM ASSOCIATE PROFESSOR OF GEOGRAPHY PHOSPHORUS, INORGANIC PHOSPHATE Routine 10/07/2024 4:55 AM ASSOCIATE PROFESSOR OF GEOGRAPHY MAGNESIUM Routine 10/07/2024 4:55 AM ASSOCIATE PROFESSOR OF GEOGRAPHY BASIC METABOLIC PANEL Routine 10/07/2024 4:55 AM ASSOCIATE PROFESSOR OF GEOGRAPHY CBC, AUTO, NO DIFF Routine 10/07/2024 4:55 AM ASSOCIATE PROFESSOR OF GEOGRAPHY POCT GLUCOSE - VARGAS DOCKED DEVICE Routine 10/07/2024 4:54 AM ASSOCIATE PROFESSOR OF GEOGRAPHY POCT GLUCOSE - VARGAS DOCKED DEVICE Routine 10/06/2024 10:27 PM ASSOCIATE PROFESSOR OF GEOGRAPHY POCT GLUCOSE - VARGAS DOCKED DEVICE Routine 10/06/2024 6:09 PM ASSOCIATE PROFESSOR OF GEOGRAPHY POCT EG7 BLD GAS ARTERIAL TEMP ERMA Routine 10/06/2024 4:37 PM ASSOCIATE PROFESSOR OF GEOGRAPHY XR CHEST PORTABLE Today 10/06/2024 3:33 PM ASSOCIATE PROFESSOR OF GEOGRAPHY CK (CPK) Routine 10/06/2024 3:15 PM ASSOCIATE PROFESSOR OF GEOGRAPHY CBC W/DIFF AUTOMATED Routine 10/06/2024 3:15 PM ASSOCIATE PROFESSOR OF GEOGRAPHY POCT ACUTE ARTERIAL PANEL Routine 10/06/2024 2:09 PM ASSOCIATE PROFESSOR OF GEOGRAPHY POCT EG7 BLD GAS ARTERIAL TEMP ERMA Routine 10/06/2024 11:36 AM ASSOCIATE PROFESSOR OF GEOGRAPHY POCT GLUCOSE - VARGAS DOCKED DEVICE Routine 10/06/2024 11:33 AM ASSOCIATE PROFESSOR OF GEOGRAPHY POCT ACUTE ARTERIAL PANEL Routine 10/06/2024 9:57 AM ASSOCIATE PROFESSOR OF GEOGRAPHY ECG 12-LEAD Routine 10/06/2024 8:32 AM ASSOCIATE PROFESSOR OF GEOGRAPHY LACTIC ACID Routine 10/06/2024 8:18 AM ASSOCIATE PROFESSOR OF GEOGRAPHY POCT GLUCOSE - VARGAS DOCKED DEVICE Routine 10/06/2024 5:13 AM ASSOCIATE PROFESSOR OF GEOGRAPHY POCT ACUTE ARTERIAL PANEL Routine 10/06/2024 3:08 AM ASSOCIATE PROFESSOR OF GEOGRAPHY PHOSPHORUS, INORGANIC PHOSPHATE Routine 10/06/2024 3:06 AM ASSOCIATE PROFESSOR OF GEOGRAPHY MAGNESIUM Routine 10/06/2024 3:06 AM ASSOCIATE PROFESSOR OF GEOGRAPHY BASIC METABOLIC PANEL Routine 10/06/2024 3:06 AM ASSOCIATE PROFESSOR OF GEOGRAPHY CBC, AUTO, NO DIFF Routine 10/06/2024 3:06 AM ASSOCIATE PROFESSOR OF GEOGRAPHY POCT GLUCOSE - VARGAS DOCKED DEVICE Routine 10/05/2024 10:33 PM ASSOCIATE PROFESSOR OF GEOGRAPHY POCT ACUTE ARTERIAL PANEL Routine 10/05/2024 10:26 PM ASSOCIATE PROFESSOR OF GEOGRAPHY XR PELVIS 1 OR 2 VIEWS Today 10/05/2024 7:14 PM ASSOCIATE PROFESSOR OF GEOGRAPHY POCT GLUCOSE - VARGAS DOCKED DEVICE Routine 10/05/2024 6:11 PM ASSOCIATE PROFESSOR OF GEOGRAPHY POCT ACUTE ARTERIAL PANEL Routine 10/05/2024 3:28 PM ASSOCIATE PROFESSOR OF GEOGRAPHY XR PELVIS 1 OR 2 VIEWS TIMED 10/05/2024 3:22 PM ASSOCIATE PROFESSOR OF GEOGRAPHY XR CHEST PORTABLE STAT 10/05/2024 2:47 PM ASSOCIATE PROFESSOR OF GEOGRAPHY USE ECHOCARDIOGRAM STAT 10/05/2024 2:37 PM ASSOCIATE PROFESSOR OF GEOGRAPHY POCT ACUTE ARTERIAL PANEL Routine 10/05/2024 2:18 PM ASSOCIATE PROFESSOR OF GEOGRAPHY ECG 12-LEAD Routine 10/05/2024 2:15 PM ASSOCIATE PROFESSOR OF GEOGRAPHY LACTIC ACID STAT 10/05/2024 2:14 PM ASSOCIATE PROFESSOR OF GEOGRAPHY PHOSPHORUS, INORGANIC PHOSPHATE STAT 10/05/2024 2:14 PM ASSOCIATE PROFESSOR OF GEOGRAPHY MAGNESIUM STAT 10/05/2024 2:14 PM ASSOCIATE PROFESSOR OF GEOGRAPHY COMPREHENSIVE METABOLIC PANEL STAT 10/05/2024 2:14 PM ASSOCIATE PROFESSOR OF GEOGRAPHY CBC W/DIFF AUTOMATED STAT 10/05/2024 2:14 PM ASSOCIATE PROFESSOR OF GEOGRAPHY CARDIAC PROFILE Routine 10/05/2024 2:14 PM ASSOCIATE PROFESSOR OF GEOGRAPHY MI AN CENTRAL LINE QUADRUPLE LUMEN Routine 10/05/2024 1:20 PM ASSOCIATE PROFESSOR OF GEOGRAPHY ART LINE PLACEMENT Routine 10/05/2024 12:53 PM ASSOCIATE PROFESSOR OF GEOGRAPHY TRANSFUSE RED BLOOD CELLS STAT 10/05/2024 12:50 PM ASSOCIATE PROFESSOR OF GEOGRAPHY POCT GLUCOSE - VARGAS DOCKED DEVICE Routine 10/05/2024 11:48 AM ASSOCIATE PROFESSOR OF GEOGRAPHY POCT GLUCOSE - VARGAS DOCKED DEVICE Routine 10/05/2024 5:30 AM ASSOCIATE PROFESSOR OF GEOGRAPHY LACTIC ACID STAT 10/05/2024 5:30 AM ASSOCIATE PROFESSOR OF GEOGRAPHY PHOSPHORUS, INORGANIC PHOSPHATE Routine 10/05/2024 5:02 AM ASSOCIATE PROFESSOR OF GEOGRAPHY MAGNESIUM Routine 10/05/2024 5:02 AM ASSOCIATE PROFESSOR OF GEOGRAPHY BASIC METABOLIC PANEL Routine 10/05/2024 5:02 AM ASSOCIATE PROFESSOR OF GEOGRAPHY CBC W/DIFF AUTOMATED Routine 10/05/2024 5:02 AM ASSOCIATE PROFESSOR OF GEOGRAPHY CK (CPK) TIMED 10/05/2024 5:02 AM ASSOCIATE PROFESSOR OF GEOGRAPHY POCT GLUCOSE - VARGAS DOCKED DEVICE Routine 10/04/2024 11:40 PM ASSOCIATE PROFESSOR OF GEOGRAPHY HEMOGLOBIN AND HEMATOCRIT TIMED 10/04/2024 11:30 PM ASSOCIATE PROFESSOR OF GEOGRAPHY CK (CPK) TIMED 10/04/2024 8:10 PM ASSOCIATE PROFESSOR OF GEOGRAPHY POCT GLUCOSE - VARGAS DOCKED DEVICE Routine 10/04/2024 8:09 PM ASSOCIATE PROFESSOR OF GEOGRAPHY LACTIC ACID TIMED 10/04/2024 6:40 PM ASSOCIATE PROFESSOR OF GEOGRAPHY POCT GLUCOSE - VARGAS DOCKED DEVICE Routine 10/04/2024 4:20 PM ASSOCIATE PROFESSOR OF GEOGRAPHY COMPREHENSIVE METABOLIC PANEL Routine 10/04/2024 4:15 PM ASSOCIATE PROFESSOR OF GEOGRAPHY CK (CPK) TIMED 10/04/2024 4:15 PM ASSOCIATE PROFESSOR OF GEOGRAPHY HEMOGLOBIN AND HEMATOCRIT TIMED 10/04/2024 4:15 PM ASSOCIATE PROFESSOR OF GEOGRAPHY PROCEDURAL SEDATION Routine 10/04/2024 4:06 PM ASSOCIATE PROFESSOR OF GEOGRAPHY LACTIC ACID TIMED 10/04/2024 3:16 PM ASSOCIATE PROFESSOR OF GEOGRAPHY XR CHEST PORTABLE Today 10/04/2024 2:18 PM ASSOCIATE PROFESSOR OF GEOGRAPHY POCT ACUTE ARTERIAL PANEL Routine 10/04/2024 2:03 PM ASSOCIATE PROFESSOR OF GEOGRAPHY POCT GLUCOSE - VARGAS DOCKED DEVICE Routine 10/04/2024 12:05 PM ASSOCIATE PROFESSOR OF GEOGRAPHY LACTIC ACID TIMED 10/04/2024 12:05 PM ASSOCIATE PROFESSOR OF GEOGRAPHY POCT GLUCOSE - VARGAS DOCKED DEVICE Routine 10/04/2024 9:01 AM ASSOCIATE PROFESSOR OF GEOGRAPHY CK (CPK) TIMED 10/04/2024 8:55 AM ASSOCIATE PROFESSOR OF GEOGRAPHY USV VAST TEAM MIDLINE INSERT >5YR Today 10/04/2024 8:35 AM ASSOCIATE PROFESSOR OF GEOGRAPHY CBC W/DIFF AUTOMATED STAT 10/04/2024 2:58 AM ASSOCIATE PROFESSOR OF GEOGRAPHY PARTIAL THROMBOPLASTIN TIME,PTT Routine 10/04/2024 2:55 AM ASSOCIATE PROFESSOR OF GEOGRAPHY PROTHROMBIN TIME, VENOUS STAT 10/04/2024 2:55 AM ASSOCIATE PROFESSOR OF GEOGRAPHY PHOSPHORUS, INORGANIC PHOSPHATE STAT 10/04/2024 2:55 AM ASSOCIATE PROFESSOR OF GEOGRAPHY MAGNESIUM STAT 10/04/2024 2:55 AM ASSOCIATE PROFESSOR OF GEOGRAPHY COMPREHENSIVE METABOLIC PANEL STAT 10/04/2024 2:55 AM ASSOCIATE PROFESSOR OF GEOGRAPHY HEMOGLOBIN AND HEMATOCRIT STAT 10/04/2024 2:55 AM ASSOCIATE PROFESSOR OF GEOGRAPHY LACTIC ACID STAT 10/04/2024 2:55 AM ASSOCIATE PROFESSOR OF GEOGRAPHY POCT GLUCOSE - VARGAS DOCKED DEVICE Routine 10/04/2024 12:48 AM ASSOCIATE PROFESSOR OF GEOGRAPHY TRANSFUSE RED BLOOD CELLS STAT 10/04/2024 12:13 AM ASSOCIATE PROFESSOR OF GEOGRAPHY XR SHOULDER LT 3V STAT 10/04/2024 12:05 AM ASSOCIATE PROFESSOR OF GEOGRAPHY XR PELVIS MIN 3V STAT 10/04/2024 12:05 AM ASSOCIATE PROFESSOR OF GEOGRAPHY XR HAND RT 3V STAT 10/04/2024 12:05 AM ASSOCIATE PROFESSOR OF GEOGRAPHY ORDER FRESH FROZEN PLASMA Routine 10/03/2024 11:50 PM ASSOCIATE PROFESSOR OF GEOGRAPHY CT LOW EXT LT WO CON STAT 10/03/2024 11:05 PM ASSOCIATE PROFESSOR OF GEOGRAPHY CT PEL WO CON STAT 10/03/2024 11:05 PM ASSOCIATE PROFESSOR OF GEOGRAPHY XR PELVIS 1 OR 2 VIEWS STAT 10/03/2024 10:24 PM ASSOCIATE PROFESSOR OF GEOGRAPHY XR KNEE LT 2V STAT 10/03/2024 10:10 PM ASSOCIATE PROFESSOR OF GEOGRAPHY XR KNEE RT 2V STAT 10/03/2024 10:10 PM ASSOCIATE PROFESSOR OF GEOGRAPHY XR HIP LT 2V STAT 10/03/2024 10:10 PM ASSOCIATE PROFESSOR OF GEOGRAPHY XR FEMUR RT 2V STAT 10/03/2024 9:33 PM ASSOCIATE PROFESSOR OF GEOGRAPHY XR FEMUR LT 2V STAT 10/03/2024 9:00 PM ASSOCIATE PROFESSOR OF GEOGRAPHY XR PELVIS 1 OR 2 VIEWS STAT 10/03/2024 9:00 PM ASSOCIATE PROFESSOR OF GEOGRAPHY XR HUMERUS LT MIN 2V STAT 10/03/2024 9:00 PM ASSOCIATE PROFESSOR OF GEOGRAPHY XR TIBIA+FIBULA LT 2V STAT 10/03/2024 8:55 PM ASSOCIATE PROFESSOR OF GEOGRAPHY CT FACIAL BONES WO CON STAT 10/03/2024 8:06 PM ASSOCIATE PROFESSOR OF GEOGRAPHY CT THOR SPINE WO CON STAT 10/03/2024 8:06 PM ASSOCIATE PROFESSOR OF GEOGRAPHY CT LUMB SPINE WO CON STAT 10/03/2024 8:06 PM ASSOCIATE PROFESSOR OF GEOGRAPHY CT CHEST+ABD+PEL W CON STAT 10/03/2024 8:06 PM ASSOCIATE PROFESSOR OF GEOGRAPHY CT CERV SPINE WO CON STAT 10/03/2024 8:06 PM ASSOCIATE PROFESSOR OF GEOGRAPHY CT HEAD WO CON STAT 10/03/2024 8:06 PM ASSOCIATE PROFESSOR OF GEOGRAPHY HC CBC AUTO W/AUTO DIFF Routine 10/03/2024 7:45 PM ASSOCIATE PROFESSOR OF GEOGRAPHY XR CHEST PA OR AP 1V STAT 10/03/2024 7:29 PM ASSOCIATE PROFESSOR OF GEOGRAPHY TYPE & SCREEN TIMED 10/03/2024 7:22 PM ASSOCIATE PROFESSOR OF GEOGRAPHY COLONOSCOPY 05/10/2023 6:42 AM CDT from Last 3 Months or Most Recently Relevant to Health Maintenance Results * (ABNORMAL) URINALYSIS (11/29/2024 12:20 PM CDT) Only the most recent of4 resultswithin the time period is included. COLOR (U) SHIVANI 11/29/2024 12:47 PM CDT [facility] TRANSPARENCY CLEAR 11/29/2024 12:47 PM CDT [facility] SPECIFIC GRAVITY (U) 1.020 1.000 - 1.025 11/29/2024 12:47 PM CDT [facility] U PH 8.5(H) 5.0 - 8.0 11/29/2024 12:47 PM CDT [facility] LEUKOCYTES (U) 3+(A) NEGATIVE 11/29/2024 12:47 PM CDT [facility] NITRITES POSITIVE(A) NEGATIVE 11/29/2024 12:47 PM CDT [facility] PROTEIN RANDOM (U) 3+(A) NEGATIVE 11/29/2024 12:47 PM CDT [facility] GLUCOSE (U) NEGATIVE NEGATIVE 11/29/2024 12:47 PM CDT [facility] KETONES MG/DL (U) NEGATIVE NEGATIVE 11/29/2024 12:47 PM CDT [facility] UROBILINOGEN 1.0(H) <1.0 EU/DL 11/29/2024 12:47 PM CDT [facility] BILIRUBIN (U) NEGATIVE NEGATIVE 11/29/2024 12:47 PM CDT [facility] BLOOD (U) 3+(A) NEGATIVE 11/29/2024 12:47 PM CDT [facility] WBC/HPF 50-100(A) 0 - 5 /HPF 11/29/2024 12:47 PM CDT [facility] RBC/HPF FILLED FIELD(A) 0 - 5 /HPF 11/29/2024 12:47 PM CDT [facility] Comment: FILLED FIELD RED CELLS CALLED TO MAGY WILDER BY AA AT 1247 READ BACK AND VERIFIED EPI/LPF 10-20 /LPF 11/29/2024 12:47 PM CDT [facility] BACTERIA (U) 4+ /HPF 11/29/2024 12:47 PM CDT [facility] URINE SPECIMEN OBTAINED VIA INDWELLING URINARY CATHETER / Unknown 11/29/2024 12:20 PM CDT us Piyush Dial DO URINE ORDERABLES Final Resul t [facility] [address] [place] [address], * CULTURE URINE (11/29/2024 12:20 PM CDT) Only the most recent of3 resultswithin the time period is included. SPEC DESCRIPTION URINE CORREA CATH 11/29/2024 12:20 PM CDT [facility] SPECIAL REQUESTS NO SPECIAL REQUEST 11/29/2024 12:20 PM CDT [facility] CULTURE RESULT >50,000 TO 99,999 CFU/mL PROVIDENCIA RETTGERI 12/01/2024 7:45 AM CDT [facility] CULTURE RESULT >50,000 TO 99,999 CFU/mL PSEUDOMONAS AERUGINOSA 12/01/2024 7:45 AM CDT [facility] URINE SPECIMEN OBTAINED VIA INDWELLING URINARY CATHETER / Unknown 11/29/2024 12:20 PM CDT 11/29/2024 12:30 PM CDT Narrative Organism Antibiotic Method Susceptibility Providencia rettgeri AMPICILLIN YESSENIA (VITEK) Resistant Providencia rettgeri AZTREONAM YESSENIA (VITEK) Sensitive Providencia rettgeri CEFEPIME YESSENIA (VITEK) Sensitive Providencia rettgeri CEFTRIAXONE YESSENIA (VITEK) Sensitive Providencia rettgeri CEFAZOLIN YESSENIA (VITEK) Resistant Providencia rettgeri CIPROFLOXACIN YESSENIA (VITEK) Sensitive Providencia rettgeri ERTAPENEM YESSENIA (VITEK) Sensitive Providencia rettgeri NITROFURANTOIN YESSENIA (VITEK) Resistant Providencia rettgeri GENTAMICIN YESSENIA (VITEK) Sensitive Providencia rettgeri IMIPENEM YESSENIA (VITEK) Sensitive Providencia rettgeri LEVOFLOXACIN YESSENIA (VITEK) Sensitive Providencia rettgeri MEROPENEM YESSENIA (VITEK) Sensitive Providencia rettgeri PIPRACIL/TAZO YESSENIA (VITEK) Sensitive Providencia rettgeri TRIMETH-SULFAMETH. YESSENIA (VITEK) Sensitive Providencia rettgeri TETRACYCLINE YESSENIA (VITEK) Resistant Pseudomonas aeruginosa LEVOFLOXACIN YESSENIA (KB) INTERMEDIATE: Intermediate Pseudomonas aeruginosa AMIKACIN YESSENIA (KB) Sensitive Pseudomonas aeruginosa AZTREONAM YESSENIA (KB) Sensitive Pseudomonas aeruginosa CEFEPIME YESSENIA (KB) Sensitive Pseudomonas aeruginosa CEFTAZIDIME YESSENIA (KB) Sensitive Pseudomonas aeruginosa CIPROFLOXACIN YESSENIA (KB) Sensitive Pseudomonas aeruginosa MEROPENEM YESSENIA (KB) Sensitive Pseudomonas aeruginosa PIPRACIL/TAZO YESSENIA (KB) Sensitive Pseudomonas aeruginosa TOBRAMYCIN YESSENIA (KB) Sensitive Piyush Dial DO MICROBIOLOGY - GENERAL ORDER WILDER Final Result [facility] [address] [place] [address], [place] [phone] [facility] [address] [place] [address], [place] [phone] * (ABNORMAL) POCT glucose (11/20/2024 12:48 PM ASSOCIATE PROFESSOR OF GEOGRAPHY) Only the most recent of216 resultswithin the time period is included. GLUCOSE POC 202(H) 70 - 109 11/20/2024 12:56 PM ASSOCIATE PROFESSOR OF GEOGRAPHY [facility] 11/20/2024 12:4 8 PM ASSOCIATE PROFESSOR OF GEOGRAPHY us Alberto Wing MD POCT ORDERABLES - DEVICE Final Result Performing Organization Address [facility] de Phone Number [facility] [address] [place] [address], [place] [phone] * CORONAVIRUS (COVID-19) ANTIGEN (11/20/2024 9:10 AM ASSOCIATE PROFESSOR OF GEOGRAPHY) CORONAVIRUS ANTIGEN IA NEGATIVE NEGATIVE 11/20/2024 10:02 AM ASSOCIATE PROFESSOR OF GEOGRAPHY [facility] Comment: NEGATIVE RESULTS SHOULD BE TREATED PRESUMPTIVE AND CONFIRMED WITH A MOLECULAR ASSAY IF NECESSARY FOR PATIENT MANAGEMENT. NEGATIVE RESULTS DO NOT RULE OUT COVID 19 AND SHOULD NOT BE USED THE SOLE BASIS FOR TREATMENT OR PATIENT MANAGEMENT DECISIONS, INCLUDING INFECTION CONTROL DECISIONS. NEGATIVE RESULTS SHOULD BE CONSIDERED IN THE CONTEXT OF A PATIENT'S RECENT EXPOSURES, HISTORY AND THE PRESENCE OF CLINICAL SIGNS AND SYMPTOMS CONSISTENT WITH COVID 19. THIS TEST HAS BEEN AUTHORIZED BY THE FDA UNDER AN EMERGENCY USE AUTHORIZATION (EUA) FOR USE BY AUTHORIZED LABORATORIES. SPECIMEN TYPE NASAL 11/20/2024 9:41 AM ASSOCIATE PROFESSOR OF GEOGRAPHY [facility] NASAL NASAL STRUCTURE / Unknown 11/20/2024 9:10 AM ASSOCIATE PROFESSOR OF GEOGRAPHY us Alberto Wing MD MICROBIOLOGY - GENERAL ORDERAB LES Final Result Performing Organization Address [facility]/State/ZIP Co de Phone Number [facility] [address] [place] [address], [place] [phone] * OCCULT BLOOD GUAIAC DIAGNOSTIC (11/20/2024 12:15 AM ASSOCIATE PROFESSOR OF GEOGRAPHY) OCCULT BLOOD FECAL NEGATIVE NEGATIVE 11/20/2024 8:28 AM ASSOCIATE PROFESSOR OF GEOGRAPHY [facility] STOOL SPECIMEN / Unknown 11/20/2024 12:15 AM ASSOCIATE PROFESSOR OF GEOGRAPHY us [place] G Kras RETAIL POS SPECIALIST BODY FLUIDS AND STOOLS ORDERA BLES Final Result [facility] [address] [place] [address], [id number] * XR KNEE LT 2V (11/19/2024 7:36 AM ASSOCIATE PROFESSOR OF GEOGRAPHY) Only the most recent of4 resultswithin the time period is included. Anatomical Region Laterality Modality Knee Radiographic Mariana ging 11/21/2024 11:2 4 AM ASSOCIATE PROFESSOR OF GEOGRAPHY Impressions 11/21/2024 11:27 AM ASSOCIATE PROFESSOR OF GEOGRAPHY IMPRESSION: 1. Orthopedic fixation of a healing fracture of the left proximal tibia in near- anatomic alignment without evidence to suggest hardware loosening or failure. 2. Healing minimally displaced fibular neck fracture. Referred By: Interpreted By: Kavin Burkett DO, 11/21/2024 11:24 AM Narrative 11/21/2024 11:27 AM ASSOCIATE PROFESSOR OF GEOGRAPHY [facility] [address] [place], [place] [address] Examination: XR KNEE LT 2V Exam time: 11/19/2024 7:31 AM Clinical history: Imaging following surgery. Comparison: Left knee radiographs 10/17/2024, 10/11/2024, and 10/03/2024. Technique: AP and crosstable lateral views of the left knee obtained portably . Findings: There is redemonstration of plate and screw devices along the medial and lateral proximal tibia with 3 additional orthopedic screws in the medial tibial plateau affixing a comminuted fracture in near-anatomic alignment. No evidence is seen to suggest hardware loosening or failure. The fracture planes remain visible, however there is increased mineralization and decreased conspicuity along the fracture lines, compatible with interval healing changes. Also redemonstrated is a minimally displaced obliquely oriented fracture of the fibular neck with minimal callus along the fracture plane reflecting interval healing change. Atherosclerotic calcifications are noted. There is no joint effusion. Procedure Note Kavin Burkett DO - 11/21/2024 [facility] [address] [place], [place] [address] Examination: XR KNEE LT 2V Exam time: 11/19/2024 7:31 AM Clinical history: Imaging following surgery. Comparison: Left knee radiographs 10/17/2024, 10/11/2024, and 10/03/2024. Technique: AP and crosstable lateral views of the left knee obtained portably . Findings: There is redemonstration of plate and screw devices along the medial andlateral proximal tibia with 3 additional orthopedic screws in the medialtibial plateau affixing a comminuted fracture in near-anatomic alignment.No evidence is seen to suggest hardware loosening or failure. Thefracture planes remain visible, however there is increased mineralizationand decreased conspicuity along the fracture lines, compatible withinterval healing changes. Also redemonstrated is a minimally displacedobliquely oriented fracture of the fibular neck with minimal callus alongthe fracture plane reflecting interval healing change. Atheroscleroticcalcifications are noted. There is no joint effusion. IMPRESSION: 1. Orthopedic fixation of a healing fracture of the left proximal tibiain near-anatomic alignment without evidence to suggest hardware looseningor failure. 2. Healing minimally displaced fibular neck fracture. Referred By: Interpreted By: Kavin Burkett DO, 11/21/2024 11:24 AM us Harrison Mena MD GENERAL IMAGING Final Result * (ABNORMAL) BASIC METABOLIC PANEL (11/18/2024 3:53 AM ASSOCIATE PROFESSOR OF GEOGRAPHY) Only the most recent of35 resultswithin the time period is included. SODIUM S/P/B 140 136 - 145 MMOL/L 11/18/2024 4:55 AM [facility] POTASSIUM S/P/B 4.0 3.5 - 5.1 MMOL/L 11/18/2024 4:55 AM [facility] CHLORIDE S/P/B 107 97 - 115 MMOL/L 11/18/2024 4:55 AM [facility] CO2 29.6 21.0 - 32.0 MMOL/L 11/18/2024 4:55 AM [facility] GLUCOSE 82 74 - 106 MG/DL 11/18/2024 4:55 AM [facility] BUN 16 7 - 18 MG/DL 11/18/2024 4:55 AM [facility] CREATININE S/P/B 0.59(L) 0.70 - 1.30 MG/DL 11/18/2024 4:55 AM [facility] CALCIUM S/P/B 9.1 8.5 - 10.1 MG/DL 11/18/2024 4:55 AM [facility] ANION GAP 3.4 2.0 - 10.0 MMOL/L 11/18/2024 4:55 AM [facility] OSMOLALITY (CALC) 290 MOSM/KG 025 4:55 AM [facility] Comment:REFERENCE RANGE NOT ESTABLISHED GFR ESTIMATE >90 >90 ML/MIN/1. 73 M2 11/18/2024 4:55 AM [facility] GFR NOTES GFR REFERENCE S: 11/18/2024 4:55 AM [facility] Comment: THE ESTIMATED GFR IS CALCULATED USING THE 2020 CKD-EPI EQUATION. THE FOLLOWING CATEGORIES FOR GRADING RENAL FUNCTION ARE RECOMMENDED BY THE INTERNATIONAL SOCIETY OF NEPHROLOGY (KDIGO 2012 CLINICAL PRACTICE GUIDELINE). G1,NORMAL OR HIGH: >89 ml/min/1.73 m2 G2,MILDLY DECREASED: 60-89 ml/min/1.73 m2 G3A,MILDLY TO MODERATELY DECREASED: 45-59 ml/min/1.73 m2 G3B,MODERATELY TO SEVERELY DECREASED: 30-44 ml/min/1.73 m2 G4,SEVERELY DECREASED: 15-29 ml/min/1.73 m2 G5,KIDNEY FAILURE: <15 ml/min/1.73 m2 11/18/2024 3:53 AM ASSOCIATE PROFESSOR OF GEOGRAPHY [facility] Final Resul t [facility] [address] [place] [address], [id number] * (ABNORMAL) CBC, AUTO, NO DIFF (11/18/2024 3:53 AM ASSOCIATE PROFESSOR OF GEOGRAPHY) Only the most recent of9 resultswithin the time period is included. WBC 5.81 4.00 - 10.80 x10'3/uL 11/18/2024 4:26 AM ASSOCIATE PROFESSOR OF GEOGRAPHY [facility] RBC 3.39(L) 4.50 - 6.10 x10'6/uL 11/18/2024 4:26 AM [facility] HGB 10.2(L) 12.0 - 16.0 G/DL 11/18/2024 4:26 AM [facility] HCT 33.1(L) 37.0 - 52.0 % 11/18/2024 4:26 AM [facility] MCV 97.6 78.0 - 100.0 FL 11/18/2024 4:26 AM ASSOCIATE PROFESSOR OF GEOGRAPHY [facility] MCH 30.1 27.0 - 31.0 PG 11/18/2024 4:26 AM [facility] MCHC 30.8(L) 33.0 - 36.0 G/DL 11/18/2024 4:26 AM [facility] RDW 16.4(H) 11.5 - 14.5 % 11/18/2024 4:26 AM [facility] PLT 229 150 - 350 x10'3/uL 11/18/2024 4:26 AM ASSOCIATE PROFESSOR OF GEOGRAPHY [facility] MPV 9.0 7.4 - 10.4 FL 11/18/2024 4:26 AM ASSOCIATE PROFESSOR OF GEOGRAPHY [facility] 11/18/2024 3:53 AM ASSOCIATE PROFESSOR OF GEOGRAPHY [facility] Final Resul t Performing Organization Address [facility] de Phone Number [facility] [address] [place] [address], [phone] * PHOSPHORUS, INORGANIC PHOSPHATE (11/18/2024 3:53 AM ASSOCIATE PROFESSOR OF GEOGRAPHY) Only the most recent of38 resultswithin the time period is included. PHOSPHORUS 4.1 2.5 - 4.9 MG/DL 11/18/2024 4:55 AM ASSOCIATE PROFESSOR OF GEOGRAPHY [facility] 11/18/2024 3:53 AM ASSOCIATE PROFESSOR OF GEOGRAPHY [facility] Final Resul t Performing Organization Address [facility] de Phone Number [facility] [address] [place] [address], [phone] * MAGNESIUM (11/18/2024 3:53 AM ASSOCIATE PROFESSOR OF GEOGRAPHY) Only the most recent of39 resultswithin the time period is included. MAGNESIUM 1.8 1.6 - 2.6 MG/DL 11/18/2024 4:55 AM ASSOCIATE PROFESSOR OF GEOGRAPHY [facility] 11/18/2024 3:53 AM ASSOCIATE PROFESSOR OF GEOGRAPHY [facility] Final Resul t Performing Organization Address [facility] de Phone Number [facility] [address] [place] [address], [place] [phone] * XR PELVIS MIN 3V (11/15/2024 4:15 PM ASSOCIATE PROFESSOR OF GEOGRAPHY) Only the most recent of5 resultswithin the time period is included. Anatomical Region Laterality Modality Pelvis Radiographic Mariana ging 11/16/2024 12:4 8 AM ASSOCIATE PROFESSOR OF GEOGRAPHY Impressions 11/16/2024 12:51 AM ASSOCIATE PROFESSOR OF GEOGRAPHY IMPRESSION: 1. Redemonstration of multiple pelvic fractures status ORIF, similar to prior. Referred By: Interpreted By: Gene Fermin MD, 11/16/2024 12:48 AM Narrative 11/16/2024 12:51 AM ASSOCIATE PROFESSOR OF GEOGRAPHY [address] [address] EXAMINATION: XR PELVIS MIN 3V EXAM time: 11/15/2024 4:01 PM CLINICAL HISTORY: Pelvic fractures status post fixation COMPARISON: 10/31/2024 TECHNIQUE: Pelvis, 3 views FINDINGS: Redemonstration of multiple pelvic fractures status post plate/screw fixations. Overall appearance similar to 10/31/2024. Bowel gas and fecal material partially obscure visualization of the sacrum and portions of the pelvis. Bilateral hip joint arthritis, worse on the right. Surgical clips project over the sacrum. Surgical changes of hernia repair. Pelvic phleboliths. Partially imaged degenerative changes in the lumbar spine. Procedure Note Gene Fermin MD - 11/16/2024 [facility] [address] [place], [place] [address] EXAMINATION: XR PELVIS MIN 3V EXAM time: 11/15/2024 4:01 PM CLINICAL HISTORY: Pelvic fractures status post fixation COMPARISON: 10/31/2024 TECHNIQUE: Pelvis, 3 views FINDINGS: Redemonstration of multiple pelvic fractures status post plate/screwfixations. Overall appearance similar to 10/31/2024. Bowel gas and fecalmaterial partially obscure visualization of the sacrum and portions of thepelvis. Bilateral hip joint arthritis, worse on the right. Surgical clipsproject over the sacrum. Surgical changes of hernia repair. Pelvicphleboliths. Partially imaged degenerative changes in the lumbar spine. IMPRESSION: 1. Redemonstration of multiple pelvic fractures status ORIF, similar toprior. Referred By: Interpreted By: Gene Fermin MD, 11/16/2024 12:48 AM Adam Duron MD GENERAL IMAGING Final Result * (ABNORMAL) BMP WITHOUT GLUCOSE (11/14/2024 1:19 AM ASSOCIATE PROFESSOR OF GEOGRAPHY) SODIUM S/P/B 137 136 - 145 MMOL/L 11/14/2024 2:15 AM [facility] POTASSIUM S/P/B 4.3 3.5 - 5.1 MMOL/L 11/14/2024 2:15 AM [facility] CHLORIDE S/P/B 105 97 - 115 MMOL/L 11/14/2024 2:15 AM [facility] CO2 28.5 21.0 - 32.0 MMOL/L 11/14/2024 2:15 AM [facility] BUN 19(H) 7 - 18 MG/DL 11/14/2024 2:15 AM [facility] CREATININE S/P/B 0.71 0.70 - 1.30 MG/DL 11/14/2024 2:15 AM [facility] CALCIUM S/P/B 9.0 8.5 - 10.1 MG/DL 11/14/2024 2:15 AM [facility] ANION GAP 3.5 2.0 - 10.0 MMOL/L 11/14/2024 2:15 AM [facility] GFR ESTIMATE >90 >90 ML/MIN/1. 73 M2 11/14/2024 2:15 AM [facility] GFR NOTES GFR REFERENCE S: 11/14/2024 2:15 AM [facility] Comment: THE ESTIMATED GFR IS CALCULATED USING THE 2020 CKD-EPI EQUATION. THE FOLLOWING CATEGORIES FOR GRADING RENAL FUNCTION ARE RECOMMENDED BY THE INTERNATIONAL SOCIETY OF NEPHROLOGY (KDIGO 2012 CLINICAL PRACTICE GUIDELINE). G1,NORMAL OR HIGH: >89 ml/min/1.73 m2 G2,MILDLY DECREASED: 60-89 ml/min/1.73 m2 G3A,MILDLY TO MODERATELY DECREASED: 45-59 ml/min/1.73 m2 G3B,MODERATELY TO SEVERELY DECREASED: 30-44 ml/min/1.73 m2 G4,SEVERELY DECREASED: 15-29 ml/min/1.73 m2 G5,KIDNEY FAILURE: <15 ml/min/1.73 m2 11/14/2024 1:19 AM ASSOCIATE PROFESSOR OF GEOGRAPHY Kathe Subramanian MD LABORATORY Final Result [facility] [address] [place] [address], [phone] * (ABNORMAL) CBC W/DIFF AUTOMATED (11/11/2024 2:45 AM ASSOCIATE PROFESSOR OF GEOGRAPHY) Only the most recent of32 resultswithin the time period is included. WBC 8.26 4.00 - 10.80 x10'3/uL 11/11/2024 3:15 AM ASSOCIATE PROFESSOR OF GEOGRAPHY [facility] RBC 3.33(L) 4.50 - 6.10 x10'6/uL 11/11/2024 3:15 AM [facility] HGB 10.3(L) 12.0 - 16.0 G/DL 11/11/2024 3:15 AM [facility] HCT 32.4(L) 37.0 - 52.0 % 11/11/2024 3:15 AM ASSOCIATE PROFESSOR OF GEOGRAPHY [facility] MCV 97.3 78.0 - 100.0 FL 11/11/2024 3:15 AM ASSOCIATE PROFESSOR OF GEOGRAPHY [facility] MCH 30.9 27.0 - 31.0 PG 11/11/2024 3:15 AM [facility] MCHC 31.8(L) 33.0 - 36.0 G/DL 11/11/2024 3:15 AM [facility] RDW 17.1(H) 11.5 - 14.5 % 11/11/2024 3:15 AM [facility] PLT 264 150 - 350 x10'3/uL 11/11/2024 3:15 AM [facility] MPV 9.0 7.4 - 10.4 FL 11/11/2024 3:15 AM [facility] DIFFERENTIAL TYPE AUTOMATED DIFFERENTIAL 11/11/2024 3:15 AM [facility] SEG NEUTROPHILS 73.3 % 3:15 AM [facility] LYMPHOCYTES 13.0 % 11/11/2024 3:15 AM [facility] MONOCYTES 6.9 % 11/11/2024 3:15 AM [facility] EOSINOPHILS 5.7 % 11/11/2024 3:15 AM [facility] BASOPHILS 0.7 % 11/11/2024 3:15 AM [facility] IMMATURE GRANS % 0.4 % 11/11/19 3:15 AM [facility] ABS. NEUTROPHILS 6.06 1.60 - 8.30 x10'3/uL 11/11/2024 3:15 AM [facility] ABS. LYMPHOCYTES 1.07 0.80 - 4.70 x10'3/uL 11/11/2024 3:15 AM [facility] ABS. MONOCYTES 0.57 0.00 - 1.50 x10'3/uL 11/11/2024 3:15 AM [facility] ABS. EOSINOPHILS 0.47(H) 0.00 - 0.40 x10'3/uL 11/11/2024 3:15 AM [facility] ABS. BASOPHILS 0.06 0.00 - 0.20 x10'3/uL 11/11/2024 3:15 AM [facility] ABS. IMMATURE GRANULOCYTES 0.03 0.00 - 0.03 x10'3/uL 11/11/2024 3:15 AM [facility] ABS. NUCLEATED RBC'S 0.00 0.00 - 0.01 x10'3/uL 11/11/2024 3:15 AM ASSOCIATE PROFESSOR OF GEOGRAPHY [facility] NRBC % 0.0 % 11/11/2024 3:15 AM ASSOCIATE PROFESSOR OF GEOGRAPHY [facility] 11/11/2024 2:45 AM ASSOCIATE PROFESSOR OF GEOGRAPHY Flavio Cabral NP LABORATORY Final Result Performing Organization Address [facility] Co de Phone Number [facility] [address] [place] [address], [phone] * (ABNORMAL) PROTEIN CREAT RATIO URINE (11/06/2024 2:18 PM ASSOCIATE PROFESSOR OF GEOGRAPHY) Only the most recent of2 resultswithin the time period is included. PROTEIN URINE TOTAL RANDOM 35.7(H) <12.0 MG/DL 11/06/2024 2:50 PM ASSOCIATE PROFESSOR OF GEOGRAPHY [facility] CREATININE (U) 45.8 MG/DL 11/06/2024 2:50 PM ASSOCIATE PROFESSOR OF GEOGRAPHY [facility] Comment:REFERENCE RANGE NOT ESTABLISHED PROTEIN/CREATINI NE RATIO 0.8 11/06/2024 2:50 PM ASSOCIATE PROFESSOR OF GEOGRAPHY [facility] URINE SPECIMEN / Unknown 11/06/2024 2:18 PM ASSOCIATE PROFESSOR OF GEOGRAPHY Kathe Subramanian MD URINE ORDERABLES Final Result Performing Organization Address [facility] Co de Phone Number [facility] [address] [place] [address], [phone] * ECG 12 lead (11/05/2024 1:11 PM ASSOCIATE PROFESSOR OF GEOGRAPHY) Only the most recent of8 resultswithin the time period is included. 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1950 Requested By: FLAVIO CABRAL Order Number: [id number] Reading MD: George Zuluaga Measurements Intervals Hardy Rate: 109 P: 44 MI: 190 QRS: -27 QRSD: 117 T: 31 QT: 358 QTc: 484 Interpretive Statements SINUS TACHYCARDIA BORDERLINE LEFT AXIS DEVIATION [QRS AXIS < -20] LOW QRS VOLTAGE IN PRECORDIAL LEADS [QRS DEFLECTION < 1.0 mV IN CHEST LEADS] PATTERN CONSISTENT WITH PULMONARY DISEASE INCOMPLETE RIGHT BUNDLE BRANCH BLOCK [90+ ms QRS DURATION, TERMINAL R IN V1/V2, 40+ ms S IN I/aVL/V4/V5/V6] CIATE PROFESSOR OF GEOGRAPHY Procedure Note George Zuluaga MD - 11/05/2024 [facility] [address] [place] [address] Test Date: 2024-11-05 Pat Name: DAJA RAMIREZ Department: 1 Room: [facility] 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1950 Requested By: FLAVIO CABRAL Order Number: [id number] Reading MD: George Zuluaga Measurements Intervals Hardy Rate: 109 P: 44 MI: 190 QRS: -27 QRSD: 117 T: 31 QT: 358 QTc: 484 Interpretive Statements SINUS TACHYCARDIA BORDERLINE LEFT AXIS DEVIATION [QRS AXIS < -20] LOW QRS VOLTAGE IN PRECORDIAL LEADS [QRS DEFLECTION < 1.0 mV IN CHESTLEADS] PATTERN CONSISTENT WITH PULMONARY DISEASE INCOMPLETE RIGHT BUNDLE BRANCH BLOCK [90+ ms QRS DURATION, TERMINAL RIN V1/V2, 40+ ms S IN I/aVL/V4/V5/V6] CIATE PROFESSOR OF GEOGRAPHY us Flavio Cabral RETAIL POS SPECIALIST ECG ORDERABLES Final Result [facility] * ALBUMIN URINE RANDOM W/CREATININE (11/05/2024 11:00 AM ASSOCIATE PROFESSOR OF GEOGRAPHY) Pathologist [facility] ALBUMIN (U) 1.6 MG/DL 11/05/2024 1:32 PM ASSOCIATE PROFESSOR OF GEOGRAPHY [facility] CREATININE (U) <13.0 MG/DL 11/05/2024 1:32 PM ASSOCIATE PROFESSOR OF GEOGRAPHY [facility] Comment:REFERENCE RANGE NOT ESTABLISHED MICROALBUMIN (U) UNABLE TO CALCULATE <17.0 MG/G 11/05/2024 1:32 PM ASSOCIATE PROFESSOR OF GEOGRAPHY [facility] URINE SPECIMEN / Unknown 11/05/2024 11:00 AM ASSOCIATE PROFESSOR OF GEOGRAPHY us Kathe Subramanian MD URINE ORDERABLES Final Result Performing Organization Address [facility] Co de Phone Number [facility] [address] [place] [address], [phone] * HEPATITIS B SURFACE AG, EIA (11/04/2024 9:37 AM ASSOCIATE PROFESSOR OF GEOGRAPHY) [facility] HEPATITIS B SURFACE AG NON-REACTI VE NON-REACTI VE 11/04/2024 10:49 AM ASSOCIATE PROFESSOR OF GEOGRAPHY [facility] Comment:HBsAg NOT DETECTED. 11/04/2024 9:37 AM ASSOCIATE PROFESSOR OF GEOGRAPHY us Kathe Subramanian MD LABORATORY Final Result Performing Organization Address [facility] Co de Phone Number [facility] [address] [place] [address], [phone] * ANTINUCLEAR ANTIBODY WI RFX (11/03/2024 10:06 AM ASSOCIATE PROFESSOR OF GEOGRAPHY) [facility] ESPERANZA 0.1 11/05/2024 12:06 PM ASSOCIATE PROFESSOR OF GEOGRAPHY [facility] Comment: NEGATIVE: <0.7 RATIO ESPERANZA PROFILE AND TITER NOT PERFORMED THE ESPERANZA SCREEN TESTS FOR THE FOLLOWING ANTIBODIES BY EIA: SSA1 (RO), SSB1 (LA), LAKE, SCL70, JO1, CENTROMERE, SHAFT TENDER HISTONE MUST BE ORDERED SEPARATELY DNA (DS) ANTIBODY 1.6 IU/ML 025 12:06 PM ASSOCIATE PROFESSOR OF GEOGRAPHY [facility] Comment: NEGATIVE: <10 IU/mL EQUIVOCAL: 10 to 15 IU/mL POSITIVE: >15 IU/mL THIS QUANTITATIVE ASSAY IS CALIBRATED TO THE [employer]'S WO/80 STANDARD. THE LEVEL OF dsDNA AUTOANTIBODY GERERALLY CORRELATES WITH THE LEVEL OF DISEASE ACTIVITY IN SYSTEMIC LUPUS ERYTHMATOSUS 11/03/2024 10:0 6 AM ASSOCIATE PROFESSOR OF GEOGRAPHY Kathe Subramanian MD LABORATORY Final Result [facility] [address] [place] [address], [place] [phone] * ANCA SCREEN W/RFX TITER (11/03/2024 10:06 AM ASSOCIATE PROFESSOR OF GEOGRAPHY) Pathologist [facility] ANCA SCREEN Negative Negative 11/07/2024 9:31 PM ASSOCIATE PROFESSOR OF GEOGRAPHY [facility] Comment: ANCA screen uses indirect immunofluorescence to detect antibodies to neutrophil cytoplasmic antigens. A positive screen reflexes to titer and pattern. Patterns include cytoplasmic (c-ANCA) and perinuclear (p-ANCA) both of which are associated with vasculitis, and atypical p-ANCA which is associated with inflammatory bowel disease and other disorders. Test Performed by [facility], [facility], [address] [place] [address] Rosetta Ventura M.D., Ph.D., Director of Laboratories , [facility] [id number] 11/03/2024 10:0 6 AM ASSOCIATE PROFESSOR OF GEOGRAPHY Kathe Subramanian MD LABORATORY Final Result [facility] [address], [place] [phone] * ANTI-GBM (GLOMERULAR BASEMENT MEMBRANE AB) (11/03/2024 10:06 AM ASSOCIATE PROFESSOR OF GEOGRAPHY) Pathologist [facility] ANTI-GBM <1.0 <1.0 AI 11/08/2024 7:35 PM ASSOCIATE PROFESSOR OF GEOGRAPHY [facility] Comment: Value Interpretation <1.0 AI: No Antibody Detected >or=1.0 AI: Antibody Detected Test Performed by Lori Wallace, [facility], [address] [place], [place] Rosetta Ventura M.D., Ph.D., Director of Laboratories , [facility] [id number] 11/03/2024 10:0 6 AM ASSOCIATE PROFESSOR OF GEOGRAPHY Kathe Subramanian MD LABORATORY Final Result [facility] [address] [place], [place] , [place] [phone] * (ABNORMAL) COMPREHENSIVE METABOLIC PANEL (11/03/2024 10:06 AM ASSOCIATE PROFESSOR OF GEOGRAPHY) Only the most recent of8 resultswithin the time period is included. Pathologist [facility] SODIUM S/P/B 136 136 - 145 MMOL/L 11/03/2024 10:47 AM [facility] POTASSIUM S/P/B 4.8 3.5 - 5.1 MMOL/L 11/03/2024 10:47 AM [facility] CHLORIDE S/P/B 102 97 - 115 MMOL/L 11/03/2024 10:47 AM [facility] CO2 28.9 21.0 - 32.0 MMOL/L 11/03/2024 10:47 AM [facility] GLUCOSE 170(H) 74 - 106 MG/DL 11/03/2024 10:47 AM [facility] BUN 36(H) 7 - 18 MG/DL 11/03/2024 10:47 AM [facility] CREATININE S/P/B 1.04 0.70 - 1.30 MG/DL 11/03/2024 10:47 AM [facility] CALCIUM S/P/B 8.5 8.5 - 10.1 MG/DL 11/03/2024 10:47 AM [facility] BILIRUBIN TOTAL S/P/B 0.7 0.2 - 1.0 MG/DL 11/03/2024 10:47 AM [facility] ALKALINE PHOSPHATASE S/P/B 125(H) 45 - 115 U/L 11/03/2024 10:47 AM [facility] AST 21 15 - 37 U/L 11/03/2024 10:47 AM [facility] ALT 30 16 - 61 U/L 11/03/2024 10:47 AM [facility] TOTAL PROTEIN S/P/B 5.5(L) 6.4 - 8.2 G/DL 11/03/2024 10:47 AM [facility] ALBUMIN S/P/B 1.9(L) 3.4 - 5.0 G/DL 11/03/2024 10:47 AM [facility] ANION GAP 5.1 2.0 - 10.0 MMOL/L 11/03/2024 10:47 AM [facility] OSMOLALITY (CALC) 294 MOSM/KG 025 10:47 AM [facility] Comment:REFERENCE RANGE NOT ESTABLISHED GFR ESTIMATE 76(L) >90 ML/MIN/1. 73 M2 11/03/2024 10:47 AM [facility] GFR NOTES GFR REFERENCE S: 11/03/2024 10:47 AM [facility] Comment: THE ESTIMATED GFR IS CALCULATED USING THE 2020 CKD-EPI EQUATION. THE FOLLOWING CATEGORIES FOR GRADING RENAL FUNCTION ARE RECOMMENDED BY THE INTERNATIONAL SOCIETY OF NEPHROLOGY (KDIGO 2012 CLINICAL PRACTICE GUIDELINE). G1,NORMAL OR HIGH: >89 ml/min/1.73 m2 G2,MILDLY DECREASED: 60-89 ml/min/1.73 m2 G3A,MILDLY TO MODERATELY DECREASED: 45-59 ml/min/1.73 m2 G3B,MODERATELY TO SEVERELY DECREASED: 30-44 ml/min/1.73 m2 G4,SEVERELY DECREASED: 15-29 ml/min/1.73 m2 G5,KIDNEY FAILURE: <15 ml/min/1.73 m2 11/03/2024 10:0 6 AM ASSOCIATE PROFESSOR OF GEOGRAPHY Monika FUENTES-C LABORATORY Final Resul t Performing Organization Address [facility] Co de Phone Number [facility] [address] [place] [address], [place] [phone] * IMMUNOFIXATION (11/03/2024 10:06 AM ASSOCIATE PROFESSOR OF GEOGRAPHY) Pathologist [facility] IMMUNOFIXATION SERUM SEE PATHOLOGIST'S INTERPRETATION 11/05/2024 2:47 PM ASSOCIATE PROFESSOR OF GEOGRAPHY [facility] IMMUNOFIX (SERUM) INTERPRETATION THIS SERUM IMMUNOTYPING WAS INTERPRETED BY 11/05/2024 3:23 PM ASSOCIATE PROFESSOR OF GEOGRAPHY [facility] Comment: DR ROSETTA ZAMORA MONOCLONAL PROTEIN NOT IDENTIFIED 11/03/2024 10:0 6 AM ASSOCIATE PROFESSOR OF GEOGRAPHY Kathe Subramanian MD LABORATORY Final Result Performing Organization Address [facility] de Phone Number [facility] [address] [place] [address], [place] [phone] * HEPATITIS C ANTIBODY (11/03/2024 10:06 AM ASSOCIATE PROFESSOR OF GEOGRAPHY) Pathologist [facility] HEPATITIS C AB NON-REACTI VE NON-REACT KATE 11/03/2024 11:30 AM ASSOCIATE PROFESSOR OF GEOGRAPHY [facility] Comment: ANTIBODIES TO HCV NOT DETECTED. DOES NOT EXCLUDE THE POSSIBILITY OF EXPOSURE TO HCV. 11/03/2024 10:0 6 AM ASSOCIATE PROFESSOR OF GEOGRAPHY Kathe Subramanian MD LABORATORY Final Result Performing Organization Address [facility] Co de Phone Number [facility] [address] [place] [address], [phone] * (ABNORMAL) HEPATITIS B SURFACE ANTIBODY (11/03/2024 10:06 AM ASSOCIATE PROFESSOR OF GEOGRAPHY) HEP B SURFACE AB <3.1(L) >9.9 MIU/ML 11/03/2024 11:30 AM ASSOCIATE PROFESSOR OF GEOGRAPHY [facility] Comment:INDIVIDUAL IS CONSID ERED NOT IMMUNE TO HBV INFECTION. 11/03/2024 10:0 6 AM ASSOCIATE PROFESSOR OF GEOGRAPHY Kathe Subramanian MD LABORATORY Final Result [facility] [address] [place] [address], [phone] * (ABNORMAL) PROTEIN, ELECTROPHORESIS (11/03/2024 10:06 AM ASSOCIATE PROFESSOR OF GEOGRAPHY) TOTAL PROTEIN (ELECTROPHORESIS SERUM) 5.2(L) 6.0 - 8.3 G/DL 11/05/2024 2:42 PM ASSOCIATE PROFESSOR OF GEOGRAPHY [facility] ALBUMIN ELECTROPHORESIS S/P/B 2.2(L) 3.4 - 4.9 G/DL 11/05/2024 2:39 PM ASSOCIATE PROFESSOR OF GEOGRAPHY [facility] [id number] S/P/B 0.6(H) 0.2 - 0.4 G/DL 11/05/2024 2:39 PM ASSOCIATE PROFESSOR OF GEOGRAPHY [facility] [id number] S/P/B 0.9 0.4 - 1.0 G/DL 11/05/2024 2:39 PM ASSOCIATE PROFESSOR OF GEOGRAPHY [facility] BETA GLOBULIN S/P/B 0.8 0.5 - 1.2 G/DL 11/05/2024 2:39 PM ASSOCIATE PROFESSOR OF GEOGRAPHY [facility] GAMMA GLOBULIN S/P/B 0.8 0.6 - 1.6 G/DL 11/05/2024 2:39 PM ASSOCIATE PROFESSOR OF GEOGRAPHY [facility] ELECTROPHORESIS INTERPRETATION THIS SERUM PEP WAS INTERPRETED BY 11/05/2024 3:23 PM ASSOCIATE PROFESSOR OF GEOGRAPHY [facility] Comment: DR ROSETTA ZAMORA THE TOTAL SERUM PROTEIN IS DECREASED. ELECTROPHORESIS IDENTIFIES DECREASED ALBUMIN WITH A MILD ELEVATION IN ALPHA 1 GLOBULINS (ACUTE PHASE REACTION). MONOCLONAL PROTEINS ARE NOT DETECTED. 11/03/2024 10:0 6 AM ASSOCIATE PROFESSOR OF GEOGRAPHY Kathe Subramanian MD LABORATORY Final Result [facility] [address] [place] [phone], [phone] * US RETROPERITONEAL LTD (11/02/2024 2:50 PM ASSOCIATE PROFESSOR OF GEOGRAPHY) Anatomical Region Laterality Modality Renal Ultrasound 11/02/2024 8:03 PM ASSOCIATE PROFESSOR OF GEOGRAPHY Impressions 11/02/2024 8:07 PM ASSOCIATE PROFESSOR OF GEOGRAPHY IMPRESSION: No findings for obstruction. Referred By: Interpreted By: Cole Mijares MD, 11/02/2024 8:03 PM Narrative 11/02/2024 8:07 PM ASSOCIATE PROFESSOR OF GEOGRAPHY [address] [address] EXAM: US RETROPERITONEAL LTD DATE: 11/02/2024 COMPARISON: None. Correlating CT 10/03/2024. INDICATION: LESLY TECHNIQUE: Grayscale and color Doppler imaging. FINDINGS: Both kidneys measure about 12 cm in length. Right: Normal cortical thickness and echogenicity. Poorly seen exophytic kidney lesion correlates with prior CT. This cannot be characterized with ultrasound. Minimal prominence of the renal pelvis. No hydronephrosis. Left: Normal cortical thickness and echogenicity. Small cyst does not require follow-up. There may be mild prominence of poorly visualized renal pelvis. No diffuse hydronephrosis. Blood flow shown to both kidneys with Doppler. Correa catheter within a uniformly distended bladder. Procedure Note Cole Mijares MD - 11/02/[address] [address] EXAM: US RETROPERITONEAL LTD DATE: 11/02/2024 COMPARISON: None. Correlating CT 10/03/2024. INDICATION: LESLY TECHNIQUE: Grayscale and color Doppler imaging. FINDINGS: Both kidneys measure about 12 cm in length. Right: Normal cortical thickness and echogenicity. Poorly seen exophytickidney lesion correlates with prior CT. This cannot be characterized withultrasound. Minimal prominence of the renal pelvis. No hydronephrosis. Left: Normal cortical thickness and echogenicity. Small cyst does notrequire follow-up. There may be mild prominence of poorly visualizedrenal pelvis. No diffuse hydronephrosis. Blood flow shown to both kidneys with Doppler. Correa catheter within auniformly distended bladder. IMPRESSION: No findings for obstruction. Referred By: Interpreted By: Cole Mijares MD, 11/02/2024 8:03 PM us Kathe Subramanian MD ULTRASOUND Final Result * XR CHEST PORTABLE (11/02/2024 12:00 PM ASSOCIATE PROFESSOR OF GEOGRAPHY) Only the most recent of10 resultswithin the time period is included. Anatomical Region Laterality Modality Chest Radiographic Mariana ging 11/02/2024 8:00 PM ASSOCIATE PROFESSOR OF GEOGRAPHY Impressions 11/02/2024 8:02 PM ASSOCIATE PROFESSOR OF GEOGRAPHY IMPRESSION: Small density left lung base. Referred By: Interpreted By: Cole Mijares MD, 11/02/2024 8:00 PM Narrative 11/02/2024 8:02 PM ASSOCIATE PROFESSOR OF GEOGRAPHY [address] [address] EXAM: XR CHEST PORTABLE DATE: 11/02/2024 1100 hours Comparison 10/13/2024 INDICATION: Shortness of breath TECHNIQUE: One view FINDINGS: Heart size is upper normal. Normal pulmonary vessel size. Right lung is clear. Small area of increased density left lung base could be atelectasis or pneumonia. Thoracolumbar degenerative disc disease. Procedure Note Coel Mijares MD - 11/02/2024 [facility] [place] [id number] EXAM: XR CHEST PORTABLE DATE: 11/02/2024 1100 hours Comparison 10/13/2024 INDICATION: Shortness of breath TECHNIQUE: One view FINDINGS: Heart size is upper normal. Normal pulmonary vessel size.Right lung is clear. Small area of increased density left lung base couldbe atelectasis or pneumonia. Thoracolumbar degenerative disc disease. IMPRESSION: Small density left lung base. Referred By: Interpreted By: Cole Mijares MD, 11/02/2024 8:00 PM Ray Carbajal DO GENERAL IMAGING Final Result * (ABNORMAL) ALBUMIN, SERUM (11/02/2024 5:29 AM ASSOCIATE PROFESSOR OF GEOGRAPHY) Pathologist [facility] ALBUMIN S/P/B 1.7(L) 3.4 - 5.0 G/DL 11/02/2024 6:29 AM ASSOCIATE PROFESSOR OF GEOGRAPHY [facility] 11/02/2024 5:29 AM ASSOCIATE PROFESSOR OF GEOGRAPHY Monika Bajwa PA-C LABORATORY Final Resul t [facility] [address] [place], [place] [address], [id number] * CULTURE, CATH TIP (11/01/2024 10:45 PM ASSOCIATE PROFESSOR OF GEOGRAPHY) Only the most recent of2 resultswithin the time period is included. SPEC DESCRIPTION CATHETER TIP: PICC 11/01/2024 10:44 PM ASSOCIATE PROFESSOR OF GEOGRAPHY [facility] SPECIAL REQUESTS NO SPECIAL REQUEST 11/01/2024 10:44 PM ASSOCIATE PROFESSOR OF GEOGRAPHY [facility] CULTURE RESULT NO GROWTH 3 DAYS 11/05/2024 12:25 PM ASSOCIATE PROFESSOR OF GEOGRAPHY [facility] CATHETER TIP SUBMITTED SPECIMEN / Unknown 11/01/2024 10:45 PM ASSOCIATE PROFESSOR OF GEOGRAPHY 11/02/2024 4:19 AM ASSOCIATE PROFESSOR OF GEOGRAPHY Comment:PICC us Monika Bajwa PA-C MICROBIOLOGY - GENERAL ORDE RABLES Final Result Performing Organization Address [facility] Co de Phone Number [facility] [address] [place] [address], [phone] * HEPARIN, ANTI XA, UFH (11/01/2024 8:07 AM ASSOCIATE PROFESSOR OF GEOGRAPHY) Only the most recent of27 resultswithin the time period is included. HEPARIN ANTI XA UFH 0.49 0.30 - 0.70 IU/ML 11/01/2024 8:41 AM ASSOCIATE PROFESSOR OF GEOGRAPHY [facility] Comment: UFH Therapeutic Anti Xa Ranges: Medical Therapeutic Range: 0.30 - 0.70 IU/mL Cardiac Therapeutic Range: 0.30 - 0.50 IU/mL Neuro Therapeutic Range: 0.20 - 0.40 IU/mL 11/01/2024 8:07 AM ASSOCIATE PROFESSOR OF GEOGRAPHY Ray Carbajal DO LABORATORY Final Result Performing Organization Address [facility] Co de Phone Number [facility] [address] [place] [address], [id number] * PROTIME/INR, VENOUS (11/01/2024 1:31 AM ASSOCIATE PROFESSOR OF GEOGRAPHY) Only the most recent of19 resultswithin the time period is included. PROTIME 12.5 9.4 - 12.5 SEC 11/01/2024 1:48 AM ASSOCIATE PROFESSOR OF GEOGRAPHY [facility] INR 1.1 0.8 - 1.1 11/01/2024 1:48 AM ASSOCIATE PROFESSOR OF GEOGRAPHY [facility] 11/01/2024 1:31 AM ASSOCIATE PROFESSOR OF GEOGRAPHY Kelli [facility]ES [facility] Final Resul t Performing Organization Address [facility] Co de Phone Number [facility] [address] [place] [address], [phone] * POTASSIUM, SERUM (10/30/2024 8:09 AM ASSOCIATE PROFESSOR OF GEOGRAPHY) POTASSIUM S/P/B 4.9 3.5 - 5.1 MMOL/L 10/30/2024 9:18 AM ASSOCIATE PROFESSOR OF GEOGRAPHY [facility] 10/30/2024 8:09 AM ASSOCIATE PROFESSOR OF GEOGRAPHY Jenae Ramirez Anita [facility] Final Resul t Performing Organization Address [facility] Co de Phone Number [facility] [address] [place] [address], [place] [phone] * (ABNORMAL) CALCIUM, IONIZED (10/30/2024 8:09 AM ASSOCIATE PROFESSOR OF GEOGRAPHY) Only the most recent of4 resultswithin the time period is included. CALCIUM IONIZED 1.14(L) 1.15 - 1.33 MMOL/L 10/30/2024 8:57 AM ASSOCIATE PROFESSOR OF GEOGRAPHY [facility] 10/30/2024 8:09 AM ASSOCIATE PROFESSOR OF GEOGRAPHY Jenaejass Howard [facility] Final Resul t Performing Organization Address [facility] de Phone Number [facility] [address] [place] [address], [place] [phone] * SURG XR FLUOROSCOPY (10/29/2024 8:56 PM ASSOCIATE PROFESSOR OF GEOGRAPHY) Only the most recent of4 resultswithin the time period is included. Anatomical Region Laterality Modality Undefined Radio Fluoroscop y 10/29/2024 8:49 PM ASSOCIATE PROFESSOR OF GEOGRAPHY Narrative 10/29/2024 8:49 PM ASSOCIATE PROFESSOR OF GEOGRAPHY This report does not contain a radiologist's interpretation. Please review associated procedure and/or operative report. Procedure Note Ghulam Kilgore MD - 10/29/2024 This report does not contain a radiologist's interpretation. Please review associated procedure and/or operative report. Jc Smalls MD IMAGES ONLY Final Result * TRANSFUSE RED BLOOD CELLS (10/29/2024 8:45 PM ASSOCIATE PROFESSOR OF GEOGRAPHY) Only the most recent of9 resultswithin the time period is included. Enio Jean MD NURSING TREATMENT ORDERABLES - B LOOD ADMIN Edited Result - Final * MI AN PERIPHERAL BLOCK SINGLE-SHOT (10/29/2024 7:30 PM ASSOCIATE PROFESSOR OF GEOGRAPHY) Narrative Enio Jean MD - 10/29/2024 7:30 PM ASSOCIATE PROFESSOR OF GEOGRAPHY Enio Jean MD 10/29/2024 7:31 PM Peripheral Block Performed by: Enio Jean MD Authorized by: Enio Jean MD Procedure Start: 10/29/2024 7:15 PM Procedure Stop: 10/29/2024 7:18 PM Patient Location: OR Reason for Block: at surgeon's request and post-op pain management patient identified, IV checked, site marked, risks and benefits discussed, consent, monitors and equipment checked, pre-op evaluation and timeout performed Patient Position: Semi-recumbent Monitoring: Blood pressure, continuous pulse ox, ECG/EKG and heart rate Prep: Chlorhexidine Draping: Sterile technique maintained Block Type: Interscalene Laterality: Left Injection Technique: Single-shot Technique: ultrasound guided Local Infiltration: Lidocaine 1% Dose: 3 Needle Type: Stimuplex Needle Gauge: 21 G Needle Length: 10 cm Needle Localization: Anatomical landmarks and ultrasound guidance Needle Insertion Depth: 3 Test Dose: Negative Local Volume: 30 Insertion Attempts: 1 Injection Assessment/ Attestation: Incremental injection, local visualized surrounding nerve on ultrasound, negative aspiration for heme, no apparent complications, no paresthesia on injection, paresthesia absent, well tolerated and ultrasound image saved Paresthesia Pain: None Heart Rate Change: No us Enio Jean MD [place] ANESTHESIA Final Result * TYPE & SCREEN (10/28/2024 2:35 PM ASSOCIATE PROFESSOR OF GEOGRAPHY) Only the most recent of5 resultswithin the time period is included. UNITS ORDERED 2 10/29/2024 7:00 PM ASSOCIATE PROFESSOR OF GEOGRAPHY [facility] ABO/RH A POSITIVE 10/28/2024 4:10 PM ASSOCIATE PROFESSOR OF GEOGRAPHY [facility] ANTIBODY SCREEN NEGATIVE 02/09/202 5 4:10 PM ASSOCIATE PROFESSOR OF GEOGRAPHY [facility] SAMPLE EXPIRATION 10/31/2024,2359 10/28/2024 3:22 PM ASSOCIATE PROFESSOR OF GEOGRAPHY [facility] BLOOD UNIT NUMBER [id number] 10/29/2024 7:47 PM [facility] PRODUCT: PC LEUKO PHERE BAG2 10/29/2024 7:47 PM ASSOCIATE PROFESSOR OF GEOGRAPHY [facility] UNIT DIVISION 00 10/29/2024 7:47 PM ASSOCIATE PROFESSOR OF GEOGRAPHY [facility] BLOOD UNIT STATUS TRANSFUSED,FINAL 10/30/2024 6:41 AM ASSOCIATE PROFESSOR OF GEOGRAPHY [facility] ISSUE DATE/TIME [id number] 025 6:41 AM [facility] PRODUCT CODE [id number] 10/30/2024 6:41 AM [facility] ABO/RH Unit A POS 10/30/2024 6:41 AM [facility] ABO/RH UNIT ISBT CODE 6200 10/30/2024 6:41 AM ASSOCIATE PROFESSOR OF GEOGRAPHY [facility] BLOOD UNIT EXPIRATION DATE [id number] 10/30/2024 6:41 AM [facility] TRANSFUSION STATUS OK TO TRANSFUSE 10/29/2024 7:47 PM [facility] CROSSMATCH COMPATIBLE-EXM 10/29/2024 7:47 PM ASSOCIATE PROFESSOR OF GEOGRAPHY [facility] BLOOD UNIT NUMBER [id number] 10/29/2024 7:47 PM ASSOCIATE PROFESSOR OF GEOGRAPHY [facility] PRODUCT: PC LEUKOPOOR 10/29/2024 7:47 PM ASSOCIATE PROFESSOR OF GEOGRAPHY [facility] UNIT DIVISION 00 10/29/2024 7:47 PM ASSOCIATE PROFESSOR OF GEOGRAPHY [facility] BLOOD UNIT STATUS TRANSFUSED,FINAL 10/30/2024 6:41 AM ASSOCIATE PROFESSOR OF GEOGRAPHY [facility] ISSUE DATE/TIME [id number] 025 6:41 AM ASSOCIATE PROFESSOR OF GEOGRAPHY [facility] PRODUCT CODE [id number] 10/30/2024 6:41 AM ASSOCIATE PROFESSOR OF GEOGRAPHY [facility] ABO/RH Unit A POS 10/30/2024 6:41 AM ASSOCIATE PROFESSOR OF GEOGRAPHY [facility] ABO/RH UNIT ISBT CODE 6200 10/30/2024 6:41 AM [facility] BLOOD UNIT EXPIRATION DATE [id number] 10/30/2024 6:41 AM ASSOCIATE PROFESSOR OF GEOGRAPHY [facility] TRANSFUSION STATUS OK TO TRANSFUSE 10/29/2024 7:47 PM ASSOCIATE PROFESSOR OF GEOGRAPHY [facility] CROSSMATCH COMPATIBLE-EXM 10/29/2024 7:47 PM ASSOCIATE PROFESSOR OF GEOGRAPHY [facility] 10/28/2024 2:35 PM ASSOCIATE PROFESSOR OF GEOGRAPHY Mike Curtis MD BLOOD BANK TEST ORDERABLES Fi nal Result Performing Organization Address [facility] de Phone Number [facility] [address] [place] [address], [phone] * CULTURE, BACTERIA BLOOD X2 (10/28/2024 4:45 AM ASSOCIATE PROFESSOR OF GEOGRAPHY) Only the most recent of4 resultswithin the time period is included. Pathologist [facility] SPEC DESCRIPTION BLOOD 10/28/2024 3:56 AM ASSOCIATE PROFESSOR OF GEOGRAPHY [facility] SPECIAL REQUESTS NO SPECIAL REQUEST 10/28/2024 3:56 AM ASSOCIATE PROFESSOR OF GEOGRAPHY [facility] CULTURE RESULT NO GROWTH 5 DAYS 11/02/2024 11:23 PM ASSOCIATE PROFESSOR OF GEOGRAPHY [facility] BLOOD SPECIMEN OBTAINED FOR BLOOD CULTURE / Unknown 10/28/2024 4:45 AM ASSOCIATE PROFESSOR OF GEOGRAPHY 10/28/2024 5:11 AM ASSOCIATE PROFESSOR OF GEOGRAPHY Jc MCCLELLAND MICROBIOLOGY - GENERAL ORDERA BLES Final Result Performing Organization Address [facility] de Phone Number [facility] [address] [place] [address], [phone] * CLOSTRIDIUM DIFFICILE (10/26/2024 3:19 AM ASSOCIATE PROFESSOR OF GEOGRAPHY) Pathologist [facility] GDH ANTIGEN NEGATIVE NEGATIVE 10/26/2024 7:27 AM ASSOCIATE PROFESSOR OF GEOGRAPHY [facility] C DIFFICILE TOXIN A&B (STOOL) NEGATIVE NEGATIVE 10/26/2024 7:27 AM ASSOCIATE PROFESSOR OF GEOGRAPHY [facility] COMMENT GDH NEGATIVE/TOXI N A & B NEGATIVE: NEGATIVE FOR TOXIGENIC C. DIFFICILE. GDH NEGATIVE/TOXI N A & B NEGATIVE: NEGATIVE FOR TOXIGENIC C. 10/26/2024 7:27 AM ASSOCIATE PROFESSOR OF GEOGRAPHY [facility] STOOL SPECIMEN / Unknown 10/26/2024 3:19 AM ASSOCIATE PROFESSOR OF GEOGRAPHY Jc MCCLELLAND BODY FLUIDS AND STOOLS ORDERA BLES Final Result Performing Organization Address [facility] Co de Phone Number [facility] [address] [place] [address], [phone] * (ABNORMAL) PREALBUMIN (10/24/2024 4:27 AM ASSOCIATE PROFESSOR OF GEOGRAPHY) Pathologist [facility] PREALBUMIN 10.0(L) 20.0 - 40.0 MG/DL 10/24/2024 5:46 AM ASSOCIATE PROFESSOR OF GEOGRAPHY [facility] 10/24/2024 4:2 7 AM ASSOCIATE PROFESSOR OF GEOGRAPHY Alberto Wing MD LABORATORY Final Result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 created for evaluation. A dose lowering technique was used for thisprocedure, which may include, but is not limited to, dose reductiontechnique, automated exposure control, iterative reconstruction, ALARA (AsLow As Reasonably Achievable), or Image Gently techniques. FINDINGS: Interval placement of plate and screw fixation hardware alongthe inner border of the right pelvic rim extending to the superior pubicramus. Malleable plate and screw fixation hardware along the lateralborder of the left pelvis extending posterior to the acetabulum. Intervalimprovement in distraction of fracture fragments at the bilateralacetabular regions. Persistent displacement of inferior left pubic ramusfracture. Stable alignment of inferior right pubic ramus fracture. Foleycatheter within a decompressed urinary bladder. Large left inguinalhernia not completely included in legkz-qs-[id number] but continues to containboth mesenteric fat as well as a loop of bowel. Visualized bowel shows noobstruction. Scattered diverticular disease in [id number]-jf-xivf. Extensivesubcutaneous stranding overlying the bilateral hips and anterior pelvicwalls. No pooling hemorrhagic collection appreciated. ===== IMPRESSION: ===== 1. Interval placement of bilateral pelvic fixation hardware with improvedalignment of fracture fragments. 2. Stable alignment of bilateral inferior pubic rami fractures. 3. Large left inguinal hernia contains mesenteric fat and a loop ofbowel. No evidence of obstruction in the visualized bowel. 4. Diverticular disease with no evidence of diverticulitis. Referred By: Interpreted By: Zenon Green MD, 10/10/2024 11:02 PM Christofer Hutchinson MD CT Final Result * (ABNORMAL) CK (CPK) (10/10/2024 5:10 PM ASSOCIATE PROFESSOR OF GEOGRAPHY) Only the most recent of7 resultswithin the time period is included. CPK 422(H) 39 - 308 U/L 10/10/2024 5:56 PM ASSOCIATE PROFESSOR OF GEOGRAPHY [facility] 10/10/2024 5:10 PM ASSOCIATE PROFESSOR OF GEOGRAPHY Alberto Wing MD LABORATORY Final Result [facility] [address] [place] [id number], [id number] * (ABNORMAL) POCT EG7 BLD GAS ARTERIAL TEMP ERMA (10/10/2024 3:50 PM ASSOCIATE PROFESSOR OF GEOGRAPHY) Only the most recent of6 resultswithin the time period is included. SODIUM WHOLE BLOOD 144 138 - 146 mmol/L 10/10/2024 4:47 PM ASSOCIATE PROFESSOR OF GEOGRAPHY [facility] POTASSIUM WHOLE BLOOD 4.1 3.5 - 4.9 mmol/L 10/10/2024 4:47 PM ASSOCIATE PROFESSOR OF GEOGRAPHY [facility] CA IONIZED WH BLOOD 1.26 1.12 - 1.32 mmol/L 10/10/2024 4:47 PM [facility] POC PH ARTERIAL 7.410 7.35 - 7.45 10/10/2024 4:47 PM [facility] POC PCO2 ARTERIAL 31.6(L) 35.0 - 45.0 MMHG 10/10/2024 4:47 PM [facility] POC PO2 ARTERIAL 211(H) 80 - 105 MMHG 10/10/2024 4:47 PM [facility] POC HCO3 ARTERIAL 20.1(L) 22 - 26 MMOL/L 10/10/2024 4:47 PM [facility] POC TCO2 ARTERIAL 21(L) 23 - 27 MMOL/L 10/10/2024 4:47 PM [facility] POC BASE DEFICIT ARTERIAL 5(H) 0 - 2 MMOL/L 10/10/2024 4:47 PM [facility] TEMPERATURE 37.4 10/10/2024 4:47 PM [facility] POC PH TEMP CORRECTED ARTERIAL 7.404 7.35 - 7.45 10/10/2024 4:47 PM [facility] POC PCO2 TEMP ERMA ARTERIAL 32.2(L) 35.0 - 45.0 MMHG 10/10/2024 4:47 PM [facility] POC PO2 TEMP ERMA ARTERIAL 213(H) 80 - 105 MMHG 10/10/2024 4:47 PM [facility] POC HEMATOCRIT 22(L) 38 - 51 % 10/10/2024 4:47 PM [facility] TIME TEST WAS PERFORMED: 1550 10/10/2024 4:47 PM [facility] 10/10/2024 3:50 PM ASSOCIATE PROFESSOR OF GEOGRAPHY us Alberto Wing MD POINT OF CARE TEST ORDERABLES Final Result [facility] [address] [place] [address], [id number] * TRANSFUSE FRESH FROZEN PLASMA (10/10/2024 2:45 PM ASSOCIATE PROFESSOR OF GEOGRAPHY) Seb FUENTES NURSING TREATMENT ORDERABLES - B LOOD ADMIN Final Result * ORDER FRESH FROZEN PLASMA, 2 Units (10/10/2024 2:10 PM ASSOCIATE PROFESSOR OF GEOGRAPHY) Only the most recent of3 resultswithin the time period is included. UNITS ORDERED 2 10/10/2024 2:11 PM ASSOCIATE PROFESSOR OF GEOGRAPHY [facility] BLOOD UNIT NUMBER [id number] 10/10/2024 2:13 PM ASSOCIATE PROFESSOR OF GEOGRAPHY [facility] PRODUCT: THAWED PLASMA 10/10/2024 2:13 PM ASSOCIATE PROFESSOR OF GEOGRAPHY [facility] UNIT DIVISION 00 10/10/2024 2:13 PM ASSOCIATE PROFESSOR OF GEOGRAPHY [facility] BLOOD UNIT STATUS TRANSFUSED,FINAL 10/11/2024 6:47 AM ASSOCIATE PROFESSOR OF GEOGRAPHY [facility] ISSUE DATE/TIME [id number] 025 6:47 AM ASSOCIATE PROFESSOR OF GEOGRAPHY [facility] PRODUCT CODE [id number] 10/11/2024 6:47 AM ASSOCIATE PROFESSOR OF GEOGRAPHY [facility] ABO/RH Unit A NEG 10/11/2024 6:47 AM ASSOCIATE PROFESSOR OF GEOGRAPHY [facility] ABO/RH UNIT ISBT CODE 0600 10/11/2024 6:47 AM ASSOCIATE PROFESSOR OF GEOGRAPHY [facility] BLOOD UNIT EXPIRATION DATE [id number] 10/11/2024 6:47 AM ASSOCIATE PROFESSOR OF GEOGRAPHY [facility] TRANSFUSION STATUS OK TO TRANSFUSE 10/10/2024 2:13 PM ASSOCIATE PROFESSOR OF GEOGRAPHY [facility] BLOOD UNIT NUMBER [id number] 10/10/2024 2:13 PM ASSOCIATE PROFESSOR OF GEOGRAPHY [facility] PRODUCT: THAWED PLASMA 10/10/2024 2:13 PM ASSOCIATE PROFESSOR OF GEOGRAPHY [facility] UNIT DIVISION 00 10/10/2024 2:13 PM ASSOCIATE PROFESSOR OF GEOGRAPHY [facility] BLOOD UNIT STATUS UNIT RELEASED 10/10/2024 4:50 PM [facility] TRANSFUSION STATUS OK TO TRANSFUSE 10/10/2024 2:13 PM ASSOCIATE PROFESSOR OF GEOGRAPHY [facility] 10/10/2024 2:10 PM ASSOCIATE PROFESSOR OF GEOGRAPHY Harrison Mena MD BLOOD BANK PRODUCT ORDERABLES Final Result [facility] [address] [place] [address], [id number] * (ABNORMAL) CULTURE, RESPIRATORY W/ GRAM STAIN (10/10/2024 8:35 AM ASSOCIATE PROFESSOR OF GEOGRAPHY) SPEC DESCRIPTION TRACHEAL ASPIRATE 10/10/2024 8:37 AM [facility] SPECIAL REQUESTS NO SPECIAL REQUEST 10/10/2024 8:37 AM [facility] GRAM STAIN RESULT <10 EPITHELIAL CELLS PER LPF 10/10/2024 10:57 AM [facility] GRAM STAIN RESULT >25 NEUTROPHILS PER LPF 10/10/2024 10:57 AM [facility] GRAM STAIN RESULT FEW GRAM POSITIVE COCCI 10/10/2024 10:57 AM [facility] GRAM STAIN RESULT FEW GRAM NEGATIVE RODS 10/10/2024 10:57 AM [facility] GRAM STAIN RESULT FEW GRAM POSITIVE RODS 10/10/2024 10:57 AM [facility] CULTURE RESULT MANY METHICILLIN RESISTANT STAPHYLOCOCCUS AUREUS RESULTS PHONED TO AND READ BACK BY: СВЕТЛАНА [id number] ICU 0927 10.13.24 LMB (A) 10/13/2024 9:32 AM ASSOCIATE PROFESSOR OF GEOGRAPHY [facility] CULTURE RESULT MODERATE PRESUMPTIVE NEISSERIA SPECIES, NOT MENINGITIDIS 10/13/2024 9:32 AM [facility] CULTURE RESULT MODERATE BETA STREP NOT GROUP A,B,C,D,F OR G 10/13/2024 9:32 AM [facility] CULTURE RESULT , 10/13/2024 9:32 AM ASSOCIATE PROFESSOR OF GEOGRAPHY [facility] CULTURE RESULT MODERATE EIKENELLA 10/13/2024 9:32 AM ASSOCIATE PROFESSOR OF GEOGRAPHY [facility] CULTURE RESULT ,, 10/13/2024 9:32 AM ASSOCIATE PROFESSOR OF GEOGRAPHY [facility] CULTURE RESULT MODERATE BETA STREPTOCOCCUS GROUP B 10/13/2024 9:32 AM ASSOCIATE PROFESSOR OF GEOGRAPHY [facility] SPECIMEN FROM TRACHEA OBTAINED BY ASPIRATION / Unknown 10/10/2024 8:35 AM ASSOCIATE PROFESSOR OF GEOGRAPHY 10/10/2024 8:45 AM ASSOCIATE PROFESSOR OF GEOGRAPHY Narrative Organism Antibiotic Method Susceptibility Methicillin resistant staphy lococcus aureus CLINDAMYCIN YESSENIA (VITEK) Resistant Methicillin resistant staphy lococcus aureus ERYTHROMYCIN YESSENIA (VITEK) Resistant Methicillin resistant staphy lococcus aureus GENTAMICIN YESSENIA (VITEK) Sensitive Methicillin resistant staphy lococcus aureus OXACILLIN YESSENIA (VITEK) Resistant Methicillin resistant staphy lococcus aureus PENICILLIN G YESSENIA (VITEK) Resistant Methicillin resistant staphy lococcus aureus RIFAMPIN YESSENIA (VITEK) Sensitive Methicillin resistant staphy lococcus aureus TRIMETH-SULFAMETH. YESSENIA (VITEK) Sensitive Methicillin resistant staphy lococcus aureus TETRACYCLINE YESSENIA (VITEK) Sensitive Methicillin resistant staphy lococcus aureus TIGECYCLINE YESSENIA (VITEK) Sensitive Methicillin resistant staphy lococcus aureus VANCOMYCIN YESSENIA (VITEK) Sensitive Beta streptococcus group b AMPICILLIN YESSENIA (VITEK) Sensitive Beta streptococcus group b CEFTRIAXONE YESSENIA (VITEK) Sensitive Beta streptococcus group b CEFOTAXIME YESSENIA (VITEK) Sensitive Beta streptococcus group b CLINDAMYCIN YESSENIA (VITEK) Sensitive Beta streptococcus group b ERYTHROMYCIN YESSENIA (VITEK) Resistant Beta streptococcus group b PENICILLIN G YESSENIA (VITEK) Sensitive Beta streptococcus group b TIGECYCLINE YESSENIA (VITEK) Sensitive Beta streptococcus group b VANCOMYCIN YESSENIA (VITEK) Sensitive us Alberto Wing MD MICROBIOLOGY - GENERAL ORDERAB LES Final Result [facility] [address] [place] [address], [id number] * XR ABD UPRIGHT (10/08/2024 4:12 PM ASSOCIATE PROFESSOR OF GEOGRAPHY) Anatomical Region Laterality Modality Abdomen Radiographic Mariana ging 10/08/2024 4:43 PM ASSOCIATE PROFESSOR OF GEOGRAPHY Impressions 10/08/2024 4:44 PM ASSOCIATE PROFESSOR OF GEOGRAPHY IMPRESSION: NG tube in the stomach Referred By: Interpreted By: Kuldeep Carbajal MD, 10/08/2024 4:43 PM Narrative 10/08/2024 4:44 PM ASSOCIATE PROFESSOR OF GEOGRAPHY [address] [address] Examination: XR ABD UPRIGHT Exam time: 10/08/2024 3:46 PM Indication: NG tube placement Findings: 1 view abdomen. NG tube is in the stomach. Endotracheal tube 5 cm above the juanita. Right neck catheter tip in the SVC atrial junction. No pneumothorax or pleural effusion. Nonobstructive bowel or stomach pattern. Procedure Note Kuldeep Carbajal MD - 10/08/[address] [address] Examination: XR ABD UPRIGHT Exam time: 10/08/2024 3:46 PM Indication: NG tube placement Findings: 1 view abdomen. NG tube is in the stomach. Endotracheal tube 5cm above the juanita. Right neck catheter tip in the SVC atrial junction.No pneumothorax or pleural effusion. Nonobstructive bowel or stomachpattern. IMPRESSION: NG tube in the stomach Referred By: Interpreted By: Kuldeep Carbajal MD, 10/08/2024 4:43 PM Alberto Wing MD GENERAL IMAGING Final Result * USE ECHOCARDIOGRAM (10/05/2024 2:37 PM ASSOCIATE PROFESSOR OF GEOGRAPHY) Anatomical Region Laterality Modality Cardiac Echocardiogram 10/05/2024 2:23 PM ASSOCIATE PROFESSOR OF GEOGRAPHY Narrative 10/05/2024 3:51 PM ASSOCIATE PROFESSOR OF GEOGRAPHY Echocardiography Report Pat.Name: DAJA RAMIREZ Tatiana.ID: [id number] .Date: 10/05/2024 Refer.MD: MONIKA BAJWA Exam Time: 2:23:00 PM Study Type:ECHO WITH CARDIAC DOPPLER COMP Height: 188 cm Weight: 113 kg BSA: 2.39 m2 Age: 11 1950,74Y Sex: M BP: 140/65 HR: 120 bpm Sonogrphr: Yesika Melendez, TAMI Pat. Stat.:Inpatient Room: [facility] 2 CPT - 4: 35699 Reason for Study:Post Op eval, unable to extubate Procedures: 2D, M-mode, Doppler, Color Flow ++++++++++++++++++++++++++++++++++++ SUMMARY: ++++++++++++++++++++++++++++++++++++ The left ventricular size is normal. Estimated left ventricular ejection fraction is 60-65%. Wall motion appears normal in all segments. The right ventricle size is normal. The right ventricular function is normal. The peak pulmonary artery systolic pressure is estimated to be approximately 48mmHg + RAP mmHg. Trace mitral regurgitation. Mild tricuspid regurgitation. ++++++++++++++++++++++++++++++++++++ FINDINGS: ++++++++++++++++++++++++++++++++++++ LV: The left ventricular size is normal. The left ventricular systolic function is normal. Estimated left ventricular ejection fraction is 60-65%. Left ventricular diastolic function is not accessible due to tachycardia. WM: Wall motion appears normal in all segments. RV: The right ventricle size is normal. The right ventricular function is normal. IVS: Intraventricular septum is normal. LA: The left atrium was not well visualized in all views. RA: Right atrial size is normal. IAS: Atrial septum not well visualized in all views. CHELSEA: No evidence of pericardial effusion. AO: The proximal ascending aorta measures 3.2cm. PA: The peak pulmonary artery systolic pressure is estimated to be approximately 48mmHg + RAP mmHg. PVn: Pulmonary veins are dilated. SVn: Unable to assess IVC; patient intubated. AV: The aortic valve is trileaflet. No evidence of aortic valve stenosis. No evidence of aortic valve regurgitation. MV: Structurally normal mitral valve. Trace mitral regurgitation. No evidence of mitral stenosis. PV: The pulmonic valve is normal There is trace pulmonic regurgitation TV: Mild tricuspid regurgitation. No evidence of tricuspid valve stenosis. ++++++++++++++++++++++++++++++++++++ MEASUREMENTS: ++++++++++++++++++++++++++++++++++++ DOPPLER LVOT LVOTpkPG 3 mmHg LVOTmnPG 2 mmHg LVOTpkVel 80.5 cm/s (70-110) LVOT SV 52 ml LVOT TVI 14.3 cm AV Forward Flow AV TVI 19.6 cm AV pkPG 5 mmHg AV pkVel 113 cm/s (100-170) Area (TVI) 2.65 cm2 (3-5)* AV mnVel 86.5 cm/s Area (Samson) 2.59 cm2 (3-5)* AV mnPG 3 mmHg MV Forward Flow MV DeTm 85 msec MV E/A 0.7 MVA P1/2t 8.8 cm2 (4-6)* MV pkE 51.9 cm/s (60-130)* MV P1/2t 25 msec (30-60)+* MV pkA 77.6 cm/s TV Regurg Flow TV pkPG 46 mmHg TV pkVel 340 cm/s (30-70)+* Aortic Valve Aortic Valve Ar 1.11 Aortic Valve Ve 0.71 AV DI Value 0.7 CARRIE (VTI) Index Value 1.11 LV Mass 2D Value 141 g LV Mass Rdpai5S Value 59 g/m2 Right Ventricle Right Ventricle 14.9 cm/s SV (LVOT) Index Value 22 ml 2D Left Ventricle LVIDd 3.35 cm (3.6-5.2)* LVIDs 2.46 cm (2.3-3.9) LVPW LVPWd 1.19 cm Ventricular Septum IVSd 1.37 cm Aorta Ao Rtd 3.4 cm Ao Asc 3.27 cm (2.1-3.4) LVOT LVOT 2.15 cm Ratios IVS Right Ventricle Right Ventricle 2.85 cm Major Hardy 6.51 cm MMODE TA Tricuspid Annul 1.37 cm <Electronic Signature> 10/05/2024 03:51 PM Anabell Lama M.D. Procedure Note Anabell Lama MD - 10/05/2024 Echocardiography Report Pat.Name: DAJA RAMIREZ Pat.ID: [id number] .Date: 10/05/2024 Refer.MD: MONIKA BAJWA Exam Time: 2:23:00 PM Study Type:ECHO WITH CARDIAC DOPPLER COMP Height: 188 cm Weight: 113 kg BSA: 2.39 m2 Age: 11 1950,74Y Sex: M BP: 140/65 HR: 120 bpm Sonogrphr: Yesika Melendez RDCS Pat. Stat.:Inpatient Room: [facility]3] CPT - 4: 02052 Reason for Study:Post Op eval, unable to extubate Procedures: 2D, M-mode, Doppler, Color Flow ++++++++++++++++++++++++++++++++++++ SUMMARY: ++++++++++++++++++++++++++++++++++++ The left ventricular size is normal. Estimated left ventricular ejection fraction is 60-65%. Wall motion appears normal in all segments. The right ventricle size is normal. The right ventricular function is normal. The peak pulmonary artery systolic pressure is estimated to be approximately 48mmHg + RAP mmHg. Trace mitral regurgitation. Mild tricuspid regurgitation. ++++++++++++++++++++++++++++++++++++ FINDINGS: ++++++++++++++++++++++++++++++++++++ LV: The left ventricular size is normal. The left ventricular systolic function is normal. Estimated left ventricular ejection fraction is 60-65%. Left ventricular diastolic function is not accessible due to tachycardia. WM: Wall motion appears normal in all segments. RV: The right ventricle size is normal. The right ventricular function is normal. IVS: Intraventricular septum is normal. LA: The left atrium was not well visualized in all views. RA: Right atrial size is normal. IAS: Atrial septum not well visualized in all views. CHELSEA: No evidence of pericardial effusion. AO: The proximal ascending aorta measures 3.2cm. PA: The peak pulmonary artery systolic pressure is estimated to be approximately 48mmHg + RAP mmHg. PVn: Pulmonary veins are dilated. SVn: Unable to assess IVC; patient intubated. AV: The aortic valve is trileaflet. No evidence of aortic valve stenosis. No evidence of aortic valve regurgitation. MV: Structurally normal mitral valve. Trace mitral regurgitation. No evidence of mitral stenosis. PV: The pulmonic valve is normal There is trace pulmonic regurgitation TV: Mild tricuspid regurgitation. No evidence of tricuspid valve stenosis. ++++++++++++++++++++++++++++++++++++ MEASUREMENTS: ++++++++++++++++++++++++++++++++++++ DOPPLER LVOT LVOTpkPG 3 mmHg LVOTmnPG 2 mmHg LVOTpkVel 80.5 cm/s (70-110) LVOT SV 52 ml LVOT TVI 14.3 cm AV Forward Flow AV TVI 19.6 cm AV pkPG 5 mmHg AV pkVel 113 cm/s (100-170) Area (TVI) 2.65 cm2 (3-5)* AV mnVel 86.5 cm/s Area (Samson) 2.59 cm2 (3-5)* AV mnPG 3 mmHg MV Forward Flow MV DeTm 85 msec MV E/A 0.7 MVA P1/2t 8.8 cm2 (4-6)* MV pkE 51.9 cm/s (60-130)* MV P1/2t 25 msec (30-60)+* MV pkA 77.6 cm/s TV Regurg Flow TV pkPG 46 mmHg TV pkVel 340 cm/s (30-70)+* Aortic Valve Aortic Valve Ar 1.11 Aortic Valve Ve 0.71 AV DI Value 0.7 CARRIE (VTI) Index Value 1.11 LV Mass 2D Value 141 g LV Mass [id number] Value 59 g/m2 Right Ventricle Right Ventricle 14.9 cm/s SV (LVOT) Index Value 22 ml 2D Left Ventricle LVIDd 3.35 cm (3.6-5.2)* LVIDs 2.46 cm (2.3-3.9) LVPW LVPWd 1.19 cm Ventricular Septum IVSd 1.37 cm Aorta Ao Rtd 3.4 cm Ao Asc 3.27 cm (2.1-3.4) LVOT LVOT 2.15 cm Ratios IVS Right Ventricle Right Ventricle 2.85 cm Major Hardy 6.51 cm MMODE TA Tricuspid Annul 1.37 cm <Electronic Signature> 10/05/2024 03:51 PM Anabell Lama M.D. us Monika Bajwa PA-C ECHO Final Resul t * MI AN CENTRAL LINE QUADRUPLE LUMEN (10/05/2024 1:20 PM ASSOCIATE PROFESSOR OF GEOGRAPHY) Stevo Manrique CRNA - 10/05/2024 1:20 PM ASSOCIATE PROFESSOR OF GEOGRAPHY Stevo Dewitt CRNA 10/05/2024 2:25 PM Central Line Placement: Date/Time: 10/05/2024 1:20 PM Patient Location: OR Placed Outside of This Facility? No Number of Lumens: Quad lumen CVC Type: Arrow Technique Used: Maximum sterile technique used, blood return present, Chlorhexadine skin prep, real time Ultrasound guidance and guidewires used accounted for Preparation: skin prepped with ChloraPrep Hand hygiene: hand hygiene performed prior to central venous catheter insertion Local Anesthetic: None Size: 7 [place] Orientation: Right Location: Internal jugular Insertion Attempts: 1 Placement Verification: Blood return CVC Tip Placement: Distal superior vena cava/right antrium junction Securement Method: Sutured Patient Tolerance: Tolerated well Diagnosis R/T CVC Insertion: Hypotension CVC Therapy Type: Vasopressors Additional Notes: The medial and lateral heads of the sternocleidomastoid muscle were identified, as was the carotid pulse. The internal jugular vein and carotid artery were identified using ultrasound. With realtime, out of plane guidance, a 20 gauge introducer needle with 18 gauge over the needle catheter was inserted into the internal jugular vein. Venous blood was withdrawn. The catheter was threaded into the internal jugular vein as the needle and syringe were removed. A guidewire was advanced into the catheter and the internal jugular vein. The guidewire was visualized in the internal jugular vein by in plane and out of plane ultrasound, and a permanent image was captured and placed in the patient chart. us Joe Bermudez MD MI ANESTHESIA Final Resul t * Procedural Sedation (10/04/2024 4:06 PM ASSOCIATE PROFESSOR OF GEOGRAPHY) Ai Curtis DO - 10/04/2024 4:06 PM ASSOCIATE PROFESSOR OF GEOGRAPHY Cheryle Brooks MD 10/04/2024 4:23 PM Procedural Sedation Date/Time: 10/04/2024 4:06 PM Performed by: Cheryle Brooks MD Authorized by: Ai Sellers DO Reviewed (unchecked boxes indicate N/A): Reviewed: Patient Summary Reviewed: Anesthesia History Reviewed: Labs Reviewed: Nursing Notes Reviewed: Family History Anesthesia Reviewed: Medications Reviewed: Imaging/Studies History of Sedation Reaction: Hx of Sedation Reaction: No History Obtained By: History Obtained By: Patient Consent: Consent obtained: Verbal and written Consent given by: Patient Risks discussed: Allergic reaction, dysrhythmia, nausea, inadequate sedation, vomiting, respiratory compromise necessitating ventilatory assistance and intubation, prolonged sedation necessitating reversal and prolonged hypoxia resulting in organ damage Indications: Procedure performed: Dislocation reduction (Reduction left hip, traction of bilateral lower extremities) Procedure necessitating sedation performed by: Different physician Pre-sedation assessment: Time since last food or drink: 9 hours ASA classification ([place] [employer] Anesthesiologists Classification Jul 15, 2018): Class 2-Pt with mild systemic disease Sedation Plan: Deep Mouth openin finger widths Mallampati: II-soft palate, fauces, potion of uvula TM Distance: >3 FB Neck range of motion: Cervical collar in place. Pre-sedation assessments completed and reviewed: airway patency, cardiovascular function, hydration status, mental status, nausea/vomiting, pain level, respiratory function and temperature History of difficult intubation: no Pre-sedation assessment completed: 10/03/2024 9:15 PM Immediate pre-procedure details: Reassessment: Patient reassessed immediately prior to procedure Reviewed: vital signs, relevant labs/tests and NPO status Verified: bag valve mask available, emergency equipment available, intubation equipment available, IV patency confirmed, oxygen available and suction available Procedure details (see MAR for exact dosages): Sedation start time: 10/03/2024 9:45 PM Preoxygenation: Nasal cannula Sedation: Ketamine and propofol Analgesia: None Intra-procedure monitoring: Blood pressure monitoring, media monitor, continuous pulse oximetry, continuous capnometry, frequent LOC assessments and frequent vital sign checks Sedation end time: 10/03/2024 10:38 PM Total sedation time (minutes): 53 Post-Sedation Exam:: Post-sedation assessment completed: 10/03/2024 11:30 PM Recovery: Patient returned to pre-procedure baseline Post-sedation assessments completed and reviewed: airway patency, cardiovascular function, hydration status, mental status, nausea/vomiting, pain level, respiratory function and temperature Hydration:: Continue IV fluids Mental Status AVPU:: Alert Vitals: Vitals: vitals reviewed & stable Post-procedure details: Patient is stable for discharge or admission: yes Patient tolerance: Tolerated well, no immediate complications Ai Sellers DO PROCEDURE/MINOR SURGICA L ORDERABLES Final Result * USV VAST TEAM MIDLINE INSERT >5YR (10/04/2024 8:35 AM ASSOCIATE PROFESSOR OF GEOGRAPHY) Anatomical Region Laterality Modality NA Vascular Ultraso und 10/04/2024 7:48 AM ASSOCIATE PROFESSOR OF GEOGRAPHY Narrative 10/04/2024 7:48 AM ASSOCIATE PROFESSOR OF GEOGRAPHY This report does not contain a radiologist's interpretation. Please review associated procedure and/or operative report. Procedure Note Ghulam Kilgore MD - 10/04/2024 This report does not contain a radiologist's interpretation. Please review associated procedure and/or operative report. Seb FUENTES VASC Final Result * PARTIAL THROMBOPLASTIN TIME,PTT (10/04/2024 2:55 AM ASSOCIATE PROFESSOR OF GEOGRAPHY) PTT 26.9 25.1 - 36.5 SEC 10/04/2024 3:34 AM ASSOCIATE PROFESSOR OF GEOGRAPHY [facility] 10/04/2024 2:55 AM ASSOCIATE PROFESSOR OF GEOGRAPHY Helen Avalos MD LABORATORY Final Resu lt [id number] [address], [id number] * XR HAND RT 3V (10/04/2024 12:05 AM ASSOCIATE PROFESSOR OF GEOGRAPHY) Anatomical Region Laterality Modality Hand Radiographic Mariana ging 10/04/2024 12:5 1 AM ASSOCIATE PROFESSOR OF GEOGRAPHY Impressions 10/04/2024 12:54 AM ASSOCIATE PROFESSOR OF GEOGRAPHY IMPRESSION: 1. SMALL BONE FRAGMENTS SUGGESTING A AVULSION FRAGMENTS OF INDETERMINATE AGE ADJACENT TO THE TRIQUETRUM. IF THERE IS CLINICAL CONCERN FOR ACUTE FRACTURE IN THE REGION OF THE TRIQUETRUM CORRELATION WITH CT OF THE RIGHT WRIST WITHOUT CONTRAST WOULD BE RECOMMENDED. IF*NO SYMPTOMS THESE MAY REPRESENT CHRONIC ANGLE CLOSURE FRAGMENTS. 2. NO OTHER EVIDENCE OF FRACTURE OR DISLOCATION. Signed: Domenico Naik MD Referred By: Interpreted By: Domenico Naik MD, 10/04/2024 12:51 AM Narrative 10/04/2024 12:54 AM ASSOCIATE PROFESSOR OF GEOGRAPHY [address] [address] PATIENT NAME: DAJA REEDER EXAM: Right hand 3 view DATE OF EXAM: 10/03/2024 COMPARISON EXAM: None INDICATION: Trauma TECHNIQUE: AP, lateral and oblique right hand FINDINGS: There is some soft tissue swelling over the dorsum of the hand and wrist. There is small bone density fragments adjacent to the triquetrum suggesting a avulsion fragments of indeterminate age. There is no other evidence of fracture or dislocation involving the wrist. There is no evidence of acute fracture or dislocation involving the hand. Joint spaces are well-maintained. Procedure Note Domenico Naik MD - 10/04/[address] [address] PATIENT NAME: DAJA REEDER EXAM: Right hand 3 view DATE OF EXAM: 10/03/2024 COMPARISON EXAM: None INDICATION: Trauma TECHNIQUE: AP, lateral and oblique right hand FINDINGS: There is some soft tissue swelling over the dorsum of the handand wrist.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
--- OUTSIDE RECORDS SUMMARY | 2024-12-03 17:54 | XMS_ITS | Encounter Summary ---
Author Organization [facility] Address [address] [place] [address] Care Team Providers Care Professor Of Chemistry Name Role Phone Donita Burger MD Primary Care Provider [phone] Donita Burger MD Unavailable [phone] Anabell Lama MD Unavailable Anabell Lama MD Unavailable Reason for Visit * Reason Onset Date Comments Reschedule 10/29/2024 Encounter Details Date Type Department Care Team (Late st Contact Info) Description 10/29/2024 Telephone [facility] [address] [place] [address] Camilo Da Silva MD [address] [facility] [address] [id number] Reschedule Social History Tobacco Use Types Packs/Day Years Used Date Smoking Tobacco: Former Cigarettes Smokeless Tobacco: Never Comments:Patient states that he smoked 5 thai cigars per day when he smoked, years ago [facility] Utilities Answer Date Recorded In the past 12 months has e electric, gas, oil, or water company threatened to shut off services in your [...] any time in the past 12 m [facility], were you homeless or living in a chcf (including now)? No 10/04/2024 Sex and Gender Information Value Date Recorded Sex Assigned at Male 11/22/2024 8:57 AM BROILER MANAGER Legal Sex Male 9:34 PM CDT Gender Identity Male 11/22/2024 8:57 AM BROILER MANAGER Sexual Orientation Straight 11/22/2024 8: 57 AM BROILER MANAGER documented as of this encounter Functional Status * Are you deaf or do you have serious difficulty hearing Answer Date of Assessment Author Status No 10/04/2024 1:46 AM Alyssa Conner RN Active * Are you blind or do you have serious difficulty seeing, even when wearing glasses? Answer Date of Assessment Author Status No 10/04/2024 1:46 AM Alyssa Conner RN Active * Do you have serious difficulty walking or climbing stairs? Answer Date of Assessment Author Status No 10/04/2024 1:46 AM Alyssa Conner RN Active * Do you have difficulty dressing or bathing? Answer Date of Assessment Author Status No 10/04/2024 1:46 AM Alyssa Conner RN Active * Because of a physical, mental, or emotional condition, do you have difficulty doing errands alone such as visiting a doctor's office or shopping? Answer Date of Assessment Author Status No 10/04/2024 1:46 AM Alyssa Conner RN Active documented as of this encounter Mental Status * Because of a physical, mental, or emotional condition, do you have serious difficulty concentrating, remembering, or making decisions? Answer Entry Date Author Status No 10/04/2024 1:46 AM Alyssa Conner RN Active documented in this encounter Progress Notes * Ave Villalba - 12/03/2024 2:16 PM CDT I called and spoke with patient to scheduled f[place] appt [place]. Appt scheuduled for 02/13/25. Letter mailed. * Rosaura Smart RN - 11/27/2024 4:14 PM CDT Called patient's , Jordyn back. Jordyn Sanchez is unable to make his upcoming appointment with Dr. Da Silva in [place] on 12/06/24, due to transportation issues. Jordyn states [place] is too far of a drive and they will be moving farther south in [place]. Explained to Jordyn that we have 2 pr oviders that go down to [place] and [facility] and we could transfer care to one of them. Jordyn asked if Daniel can follow up with Dr. Lama for his afib since she has afib and follows up with Dr. Lama for it. Explained to Jordyn that Dr. Lama is a general professor of political science and we specialize in EP, the electricity part of the heart. Explained to Jordyn that Daniel had afib with rvr which is rapid rates which are concerning and why he needs to follow up with an EP doctor at this time. Jordyn upset thatMark cannot just follow up with Dr. Lama. Explained to Jordyn that at a future time, Daniel may be able to follow up with just a general professor of political science. Informed Jordyn that Dr. Gil goes down to [place] and we can send a referral to their office to get him scheduled. Informed Jordyn that Dr. Griffith's office will be in touch with her to schedule an appointment. Jordyn v/u and had no further questions. * Ave Villalba - 11/27/2024 9:51 AM CDT Patient called asking if Kelby can f/u with patient for his afib. States it is hard for patient to travel to [facility]. Please call patient back regarding appt. * Cara Brown Call - 11/21/2024 8:11 AM CST Opal with [facility] called to schedule patient for a hospital follow up. I was able to schedule patient for 12/06/2024 at 10:00 am LER MANAGER * Tova Chamberlain - 10/29/2024 9:52 AM CST Pt's spouse, Jordyn, is calling in today regarding the pt's 04/12/25 appt. Jordyn explained that they were needing to have an appt later in the day. Per nurse Kaplan, I was able to move the pt's appt to 04/02/25 at 2p. Jordyn agreed to the new appt date and time. New appt letter mailed. LER MANAGER documented in this encounter Plan of Treatment Upcoming Encounters Date Type Department Care Team (Late st Contact Info) Description 02/13/2025 2:30 PM CDT Office Visit [facility] [address] [place] [address] Freddy Gil MD [address] [place] [address] documented as of this encounter Visit Diagnoses Not on filedocumented in this encounter Additional Health Concerns Infection Onset Date Last Indicated Resolved Time MRSA 10/10/2024 10/12/2024 COVID-19 Rule Out 11/20/2024 11/20/2024 11/20/2024 10:02 AM BROILER MANAGER documented as of this encounter Care Teams Professor Of Chemistry Relationship Specialty [place] [address] [place] [address] PCP - General FAMILY PRACTICE 10/05/24 Donita Burger [id number] [place] [id number] FAMILY PRACTICE 10/05/24 Anabell Lama MD [address] [place] [address] Consulting Physician CARDIOVASCULAR DISEASE 07/16/21 Anabell Lama MD [address] [place] [address] Consulting Physician CARDIOVASCULAR DISEASE 10/05/24 documented as of this encounter
[2024-12-03 18:48] LABS: Toxigenic C. Diff NEGATIVE (NEGATIVE)
[2024-12-03 20:00] VITALS: PULSE 112; RESP 18; O2SAT 98
[2024-12-03] MEDS: dilTIAZem HCL CD 180 MG CAP.24HR PO (20:36)
[2024-12-03] MEDS: TOLNAFTATE 1% POWDER 45 GM BTL 1 APPLIC TOPICAL (20:36)
[2024-12-03] MEDS: MELATONIN 5 MG TABLET PO (20:36)
[2024-12-03 20:37] VITALS: PULSE 112
[2024-12-03] MEDS: GABAPENTIN 100 MG CAPSULE PO (20:37)
[2024-12-03] MEDS: traMADol HCL (*CRX) 50 MG TABLET PO (20:37)
[2024-12-03] MEDS: METOPROLOL TARTRATE 25 MG TABLET PO (20:37)
[2024-12-03] MEDS: APIXABAN 2.5 MG TABLET 5 MG BY MOUTH (20:37)
[2024-12-04] VITALS: BP 139/77; PULSE 112; RESP 18; TEMP 37; O2SAT 97
[2024-12-04 08:00] VITALS: BP 141/69; PULSE 114; RESP 17; TEMP 37.4; O2SAT 97
[2024-12-04] MEDS: traMADol HCL (*CRX) 50 MG TABLET PO (08:13)
[2024-12-04 08:15] VITALS: PULSE 114
[2024-12-04] MEDS: dilTIAZem HCL CD 180 MG CAP.24HR PO ×2 (08:15→20:57)
[2024-12-04] MEDS: TAMSULOSIN HCL 0.4 MG CAPSULE PO (08:15)
[2024-12-04] MEDS: APIXABAN 2.5 MG TABLET 5 MG BY MOUTH ×2 (08:15→20:57)
[2024-12-04] MEDS: METOPROLOL TARTRATE 25 MG TABLET PO ×2 (08:15→20:57)
[2024-12-04] MEDS: ATORVASTATIN 10 MG TABLET 20 MG PO (08:15)
[2024-12-04] MEDS: TOLNAFTATE 1% POWDER 45 GM BTL 1 APPLIC TOPICAL ×2 (08:17→20:58)
[2024-12-04 08:18] LABS: Hematocrit 37.8 % (37.0-46.0); Hemoglobin 12.1 g/dL (12.4-15.3); Mean Corpuscular Hemoglobin 30.3 pg (27.0-31.0); Mean Corpuscular Volume 94.7 fL (78.0-102.0); Mean Platelet Volume 8.5 fl (8.7-11.0); Platelet Count Result 173 K/mm3 (150-420); Red Blood Count 3.99 M/mm3 (4.70-6.10); Red Cell Distribution Width 15.5 % (11.6-14.4); White Blood Count 4.1 K/mm3 (4.8-10.8)
[2024-12-04 08:44] LABS: Alanine Aminotransferase 16 U/L (16-63); Albumin Level 2.6 g/dL (3.4-5.0); Alkaline Phosphatase 127 U/L (46-116); Anion Gap 7 mmol/L (4-12); Aspartate Amino Transferase < 10 U/L (15-37); Bilirubin,Total 0.7 mg/dL (0.00-1.00); Blood Urea Nitrogen 15 mg/dL (7-18); Calcium 8.8 mg/dL (8.5-10.1); Carbon Dioxide 28 mmol/L (21-32); Chloride 104 mmol/L (98-108); Estimated CRCL calculation 89 ml/min; Estimated Glomerular Filt Rate > 60; Glucose 149 mg/dL (70-99); Osmolality Calculated 291 mOsm/kg (285-295); Potassium 3.4 mmol/L (3.5-5.1); Sodium 139 mmol/L (136-145); Total Protein 5.9 g/dL (6.4-8.2)
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
[2024-12-04 10:35] LABS: Hemoglobin A1C 5.7 % (<5.7)
[2024-12-04 11:28] LABS: Appearance Urine Cloudy (Clear); Bilirubin Urine 2+ (Negative); Blood Urine 3+ (Negative); Glucose Urine UA Negative (Negative); Ketones Urine Trace (Negative); Leukocyte Esterase Ur 2+ LEU/UL (Negative); Nitrate Urine Positive (Negative); Protein Urine 3+ (Negative); Specific Grav Ur >= 1.030 (1.010-1.020); pH Urine 6.5 (5.0-8.0)
[2024-12-04 11:35] LABS: Add Urine Microscopic? YES; Color Urine Dark Amber (Yellow)
[2024-12-04 11:36] LABS: Bacteria Urine Trace /hpf; Budding Yeast Urine Present /hpf; Mucus Urine Few /lpf; RBC Urine >75 /hpf (0-2); WBC Urine >75 /hpf (0-3)
[2024-12-04] MEDS: INSULIN HUMAN LISPRO (*BKC) 1,000 UNITS/10 ML VIAL SUB-Q (12:04)
[2024-12-04 12:05] LABS: Glucose Point of Care 220 mg/dl (65-105)
[2024-12-04] MEDS: CINNAMON PO (12:06)
[2024-12-04] MEDS: PANTOPRAZOLE 40 MG TABLET PO (12:06)
[2024-12-04] MEDS: CHROMIUM PO (12:06)
[2024-12-04] MEDS: BERBERINE PO (12:06)
[2024-12-04 16:00] VITALS: BP 117/57; PULSE 92; RESP 18; TEMP 37.2; O2SAT 96
[2024-12-04 16:45] VITALS: BP 74/39; PULSE 103
--- NOTE | 2024-12-04 16:45 | PC.NURSE ---
While getting PT treatment, pt had episode of hypotension and dizziness. Pt assisted back to bed with PT, LAND PLANNER, and 2 nurses. Pt now resting comfortably with no complaints.
[2024-12-04 17:07] LABS: Glucose Point of Care 166 mg/dl (65-105)
[2024-12-04 18:00] VITALS: BP 129/67; PULSE 98
[2024-12-04] MEDS: GABAPENTIN 100 MG CAPSULE PO (20:57)
[2024-12-04] MEDS: MELATONIN 5 MG TABLET PO (20:57)
[2024-12-04 21:03] LABS: Glucose Point of Care 175 mg/dl (65-105)
[2024-12-05] VITALS: BP 118/65; PULSE 106; RESP 16; TEMP 36.8; O2SAT 96
[2024-12-05 08:04] LABS: Glucose Point of Care 153 mg/dl (65-105)
[2024-12-05 09:00] VITALS: BP 134/80; PULSE 112; RESP 17; TEMP 36.4; O2SAT 96
[2024-12-05] MEDS: BERBERINE PO (09:38)
[2024-12-05] MEDS: CINNAMON PO (09:38)
[2024-12-05] MEDS: CHROMIUM PO (09:38)
[2024-12-05 09:39] VITALS: PULSE 112
[2024-12-05] MEDS: dilTIAZem HCL CD 180 MG CAP.24HR PO ×2 (09:39→20:30)
[2024-12-05] MEDS: PANTOPRAZOLE 40 MG TABLET PO (09:39)
[2024-12-05] MEDS: APIXABAN 2.5 MG TABLET 5 MG BY MOUTH ×2 (09:39→20:29)
[2024-12-05] MEDS: METOPROLOL TARTRATE 25 MG TABLET PO ×2 (09:39→20:30)
[2024-12-05] MEDS: FERROUS SULFATE 325 MG TABLET DR BY MOUTH ×2 (09:39→18:20)
[2024-12-05] MEDS: ATORVASTATIN 10 MG TABLET 20 MG PO (09:39)
[2024-12-05] MEDS: TAMSULOSIN HCL 0.4 MG CAPSULE PO (09:39)
[2024-12-05] MEDS: TOLNAFTATE 1% POWDER 45 GM BTL 1 APPLIC TOPICAL (09:40)
--- NOTE | 2024-12-05 10:05 | PC.NURSE ---
PROCUREMENT ANALYST made aware of Registered Dietitian recommendations.
[2024-12-05 11:38] LABS: Glucose Point of Care 239 mg/dl (65-105)
[2024-12-05] MEDS: INSULIN HUMAN LISPRO (*BKC) 1,000 UNITS/10 ML VIAL SUB-Q (12:35)
[2024-12-05 16:00] VITALS: BP 120/62; PULSE 96; RESP 17; TEMP 36.6; O2SAT 97
[2024-12-05 17:01] LABS: Glucose Point of Care 194 mg/dl (65-105)
[2024-12-05 20:30] VITALS: PULSE 103
[2024-12-05] MEDS: GABAPENTIN 100 MG CAPSULE PO (20:30)
[2024-12-05] MEDS: MELATONIN 5 MG TABLET PO (20:30)
[2024-12-05] MEDS: traMADol HCL (*CRX) 50 MG TABLET PO (20:31)
[2024-12-05 20:36] LABS: Glucose Point of Care 197 mg/dl (65-105)
[2024-12-06] VITALS (8 sets, daily range): BP systolic 137–147; BP diastolic 59–74; PULSE 100–114; RESP 16–20; TEMP 35.9–36.9; O2SAT 97–98
[2024-12-06 08:07] LABS: Glucose Point of Care 142 mg/dl (65-105)
[2024-12-06] MEDS: PROLENSA 0.07% LEFT EYE (09:02)
[2024-12-06] MEDS: [UNRECOGNIZED DRUG - OTHER] LEFT EYE (09:02)
[2024-12-06] MEDS: OPTHALMIC LEFT EYE (09:02)
[2024-12-06] MEDS: CINNAMON PO (09:04)
[2024-12-06] MEDS: APIXABAN 2.5 MG TABLET 5 MG BY MOUTH ×2 (09:04→20:24)
[2024-12-06] MEDS: BERBERINE PO (09:04)
[2024-12-06] MEDS: TAMSULOSIN HCL 0.4 MG CAPSULE PO (09:04)
[2024-12-06] MEDS: CHROMIUM PO (09:04)
[2024-12-06] MEDS: METOPROLOL TARTRATE 25 MG TABLET PO ×2 (09:04→20:24)
[2024-12-06] MEDS: FERROUS SULFATE 325 MG TABLET DR BY MOUTH ×2 (09:05→17:55)
[2024-12-06] MEDS: PANTOPRAZOLE 40 MG TABLET PO (09:05)
[2024-12-06] MEDS: dilTIAZem HCL CD 180 MG CAP.24HR PO ×2 (09:05→20:25)
[2024-12-06] MEDS: ATORVASTATIN 10 MG TABLET 20 MG PO (09:05)
[2024-12-06] MEDS: TOLNAFTATE 1% POWDER 45 GM BTL 1 APPLIC TOPICAL ×2 (09:06→20:25)
--- NOTE | 2024-12-06 09:53 | PM.EVENT ---
Event Note Event Note Event Note: Subjective: Nursing reported that patient became orthostatic and felt dizzy yesterday when getting up with therapy. When reviewing fluid balance, he appears to be euvolemic. Patient denies any lightheadedness, dizziness, or shortness of breath. Plan: -nasreen Sage high -obtain orthostatic blood pressures when getting up with next therapy session. -EKG ordered to assess for A fib
--- NOTE | 2024-12-06 09:56 | ECG_ITS ---
Test Date: 2024-12-06 10:14:51 Measurements Intervals [place] Rate: 100 P: 37 SC: 176 QRS: -32 QRSD: 120 T: 29 QT: 369 QTc: 478 Interpretive Statements SINUS TACHYCARDIA LEFT AXIS DEVIATION [QRS AXIS < -30] RIGHT BUNDLE BRANCH BLOCK [120+ ms QRS DURATION, UPRIGHT V1, 40+ ms S IN I/aVL/V4/V5/V6] MINIMAL VOLTAGE CRITERIA FOR LVH, CONSIDER NORMAL VARIANT [MEETS CRITERIA IN ONE OF: R(aVL), S(V1), R(V5), R(V5/V6)+S(V1)] No previous ECG available for comparison Electronically Signed On 12-07-2024 18:16:29 CDT by Odalys Carbajal M.D.
[2024-12-06 12:02] LABS: Glucose Point of Care 205 mg/dl (65-105)
[2024-12-06] MEDS: INSULIN HUMAN LISPRO (*BKC) 1,000 UNITS/10 ML VIAL SUB-Q (12:03)
[2024-12-06 17:02] LABS: Glucose Point of Care 178 mg/dl (65-105)
[2024-12-06 20:24] LABS: Glucose Point of Care 169 mg/dl (65-105)
[2024-12-06] MEDS: MELATONIN 5 MG TABLET PO (20:24)
[2024-12-06] MEDS: GABAPENTIN 100 MG CAPSULE PO (20:25)
[2024-12-07] VITALS: BP 126/74; PULSE 103; RESP 16; TEMP 36.7; O2SAT 95
[2024-12-07 07:52] LABS: Glucose Point of Care 144 mg/dl (65-105)
[2024-12-07 07:56] VITALS: BP 155/83; PULSE 99; RESP 16; TEMP 36.4; O2SAT 98
[2024-12-07] MEDS: ATORVASTATIN 10 MG TABLET 20 MG PO (08:32)
[2024-12-07 08:33] VITALS: PULSE 99
[2024-12-07] MEDS: METOPROLOL TARTRATE 25 MG TABLET PO ×2 (08:33→20:20)
[2024-12-07] MEDS: APIXABAN 2.5 MG TABLET 5 MG BY MOUTH ×2 (08:33→20:19)
[2024-12-07] MEDS: TAMSULOSIN HCL 0.4 MG CAPSULE PO (08:33)
[2024-12-07] MEDS: CHROMIUM PO (08:34)
[2024-12-07] MEDS: PANTOPRAZOLE 40 MG TABLET PO (08:34)
[2024-12-07] MEDS: BERBERINE PO (08:34)
[2024-12-07] MEDS: CINNAMON PO (08:34)
[2024-12-07] MEDS: FERROUS SULFATE 325 MG TABLET DR BY MOUTH ×2 (08:34→16:56)
[2024-12-07] MEDS: dilTIAZem HCL CD 180 MG CAP.24HR PO ×2 (08:34→20:20)
[2024-12-07] MEDS: PROLENSA 0.07% LEFT EYE (08:35)
[2024-12-07] MEDS: TOLNAFTATE 1% POWDER 45 GM BTL 1 APPLIC TOPICAL ×2 (08:35→20:21)
[2024-12-07] MEDS: [UNRECOGNIZED DRUG - OTHER] LEFT EYE (08:35)
[2024-12-07] MEDS: OPTHALMIC LEFT EYE (08:35)
[2024-12-07 11:53] LABS: Glucose Point of Care 216 mg/dl (65-105)
[2024-12-07] MEDS: INSULIN HUMAN LISPRO (*BKC) 1,000 UNITS/10 ML VIAL SUB-Q (12:00)
[2024-12-07 16:00] VITALS: BP 120/70; PULSE 94; RESP 16; TEMP 36.6; O2SAT 97
[2024-12-07 16:54] LABS: Glucose Point of Care 166 mg/dl (65-105)
--- NOTE | 2024-12-07 17:01 | PM.EVENT ---
Event Note Event Note Event Note: Urine culture showing Niya glabrata on urine culture Fluconazole 150 mg x2 doses ordered.
--- NOTE | 2024-12-07 17:39 | PC.NURSE ---
Dressings changed to patient's wounds. Minimal clear drainage noted at sit of L heel wound. No drainage noted to site of LLE posterior calf wound. Patient tolerated dressing change well. Stabilization boot in place.
[2024-12-07] MEDS: traMADol HCL (*CRX) 50 MG TABLET PO (20:19)
[2024-12-07] MEDS: MELATONIN 5 MG TABLET PO (20:19)
[2024-12-07] MEDS: GABAPENTIN 100 MG CAPSULE PO (20:19)
[2024-12-08] VITALS: BP 135/69; PULSE 94; RESP 15; TEMP 37.1; O2SAT 97
[2024-12-08 00:24] LABS: Glucose Point of Care 191 mg/dl (65-105)
[2024-12-08 08:00] VITALS: BP 139/73; PULSE 103; RESP 17; TEMP 36.4; O2SAT 97
[2024-12-08 08:01] LABS: Glucose Point of Care 146 mg/dl (65-105)
[2024-12-08 09:19] VITALS: PULSE 103
[2024-12-08] MEDS: PANTOPRAZOLE 40 MG TABLET PO (09:19)
[2024-12-08] MEDS: ATORVASTATIN 10 MG TABLET 20 MG PO (09:19)
[2024-12-08] MEDS: APIXABAN 2.5 MG TABLET 5 MG BY MOUTH ×2 (09:19→20:21)
[2024-12-08] MEDS: METOPROLOL TARTRATE 25 MG TABLET PO ×2 (09:19→20:22)
[2024-12-08] MEDS: FERROUS SULFATE 325 MG TABLET DR BY MOUTH ×2 (09:19→17:02)
[2024-12-08] MEDS: BERBERINE PO (09:20)
[2024-12-08] MEDS: FLUCONAZOLE 150 MG TABLET PO (09:20)
[2024-12-08] MEDS: [UNRECOGNIZED DRUG - OTHER] LEFT EYE (09:20)
[2024-12-08] MEDS: CINNAMON PO (09:20)
[2024-12-08] MEDS: OPTHALMIC LEFT EYE (09:20)
[2024-12-08] MEDS: PROLENSA 0.07% LEFT EYE (09:20)
[2024-12-08] MEDS: TAMSULOSIN HCL 0.4 MG CAPSULE PO (09:20)
[2024-12-08] MEDS: CHROMIUM PO (09:20)
[2024-12-08] MEDS: dilTIAZem HCL CD 180 MG CAP.24HR PO ×2 (09:20→20:21)
[2024-12-08] MEDS: TOLNAFTATE 1% POWDER 45 GM BTL 1 APPLIC TOPICAL ×2 (09:26→20:22)
[2024-12-08 11:55] LABS: Glucose Point of Care 205 mg/dl (65-105)
[2024-12-08] MEDS: INSULIN HUMAN LISPRO (*BKC) 1,000 UNITS/10 ML VIAL SUB-Q (12:20)
--- NOTE | 2024-12-08 15:17 | PC.NURSE ---
Charged pt's event monitor, cleaned chest and replaced electrodes. According to instructions from , the electrodes should be changed every 3 days and the charge should last 3-5 days.
[2024-12-08 16:00] VITALS: BP 131/73; PULSE 91; RESP 18; TEMP 37.3; O2SAT 97
[2024-12-08 17:05] LABS: Glucose Point of Care 183 mg/dl (65-105)
[2024-12-08] MEDS: MELATONIN 5 MG TABLET PO (20:21)
[2024-12-08] MEDS: GABAPENTIN 100 MG CAPSULE PO (20:22)
[2024-12-08 20:27] LABS: Glucose Point of Care 185 mg/dl (65-105)
[2024-12-08] MEDS: traMADol HCL (*CRX) 50 MG TABLET PO (20:30)
[2024-12-09] VITALS: BP 131/70; PULSE 82; RESP 20; TEMP 36.6; O2SAT 96
--- NOTE | 2024-12-09 00:15 | PC.NURSE ---
Pt resting in bed on the bedpan with no results. Pt assisted with repositioning to comfort.
--- NOTE | 2024-12-09 02:05 | PC.NURSE ---
Pt asleep and no signs of discomfort noted.
--- NOTE | 2024-12-09 04:25 | PC.NURSE ---
Pt assisted with repositioning to comfort.
--- NOTE | 2024-12-09 06:15 | PC.NURSE ---
Pt asleep and no signs of discomfort noted.
[2024-12-09 07:50] VITALS: BP 142/75; PULSE 103; RESP 18; TEMP 36.2; O2SAT 97
[2024-12-09 08:06] LABS: Glucose Point of Care 129 mg/dl (65-105)
[2024-12-09 08:35] VITALS: PULSE 103; RESP 18; O2SAT 97
[2024-12-09 08:41] VITALS: PULSE 103
[2024-12-09] MEDS: dilTIAZem HCL CD 180 MG CAP.24HR PO ×2 (08:41→20:37)
[2024-12-09] MEDS: PROLENSA 0.07% LEFT EYE (08:41)
[2024-12-09] MEDS: APIXABAN 2.5 MG TABLET 5 MG BY MOUTH ×2 (08:41→20:37)
[2024-12-09] MEDS: BERBERINE PO (08:41)
[2024-12-09] MEDS: [UNRECOGNIZED DRUG - OTHER] LEFT EYE (08:41)
[2024-12-09] MEDS: ATORVASTATIN 10 MG TABLET 20 MG PO (08:41)
[2024-12-09] MEDS: OPTHALMIC LEFT EYE (08:41)
[2024-12-09] MEDS: FERROUS SULFATE 325 MG TABLET DR BY MOUTH ×2 (08:41→16:58)
[2024-12-09] MEDS: METOPROLOL TARTRATE 25 MG TABLET PO ×2 (08:41→20:37)
[2024-12-09] MEDS: CINNAMON PO (08:41)
[2024-12-09] MEDS: CHROMIUM PO (08:41)
[2024-12-09] MEDS: PANTOPRAZOLE 40 MG TABLET PO (08:41)
[2024-12-09] MEDS: TAMSULOSIN HCL 0.4 MG CAPSULE PO (08:41)
[2024-12-09] MEDS: FLUCONAZOLE 150 MG TABLET PO (08:42)
[2024-12-09] MEDS: TOLNAFTATE 1% POWDER 45 GM BTL 1 APPLIC TOPICAL ×2 (08:42→20:37)
[2024-12-09 12:02] LABS: Glucose Point of Care 168 mg/dl (65-105)
[2024-12-09 16:35] VITALS: BP 129/67; PULSE 90; RESP 16; TEMP 36.8; O2SAT 98
[2024-12-09 17:03] LABS: Glucose Point of Care 200 mg/dl (65-105)
[2024-12-09 20:32] LABS: Glucose Point of Care 189 mg/dl (65-105)
[2024-12-09] MEDS: MELATONIN 5 MG TABLET PO (20:37)
[2024-12-09] MEDS: GABAPENTIN 100 MG CAPSULE PO (20:37)
[2024-12-10] VITALS: BP 125/66; PULSE 98; RESP 16; TEMP 36.8; O2SAT 98
[2024-12-10 07:44] VITALS: BP 142/80; PULSE 102; RESP 16; TEMP 36.7; O2SAT 95
[2024-12-10] MEDS: TAMSULOSIN HCL 0.4 MG CAPSULE PO (08:24)
[2024-12-10] MEDS: APIXABAN 2.5 MG TABLET 5 MG BY MOUTH ×2 (08:24→20:25)
[2024-12-10] MEDS: PANTOPRAZOLE 40 MG TABLET PO (08:24)
[2024-12-10] MEDS: FERROUS SULFATE 325 MG TABLET DR BY MOUTH ×2 (08:25→17:48)
[2024-12-10] MEDS: dilTIAZem HCL CD 180 MG CAP.24HR PO ×2 (08:25→20:25)
[2024-12-10] MEDS: ATORVASTATIN 10 MG TABLET 20 MG PO (08:25)
[2024-12-10 08:26] VITALS: PULSE 102
[2024-12-10] MEDS: METOPROLOL TARTRATE 25 MG TABLET PO ×2 (08:26→20:25)
[2024-12-10] MEDS: CHROMIUM PO (08:26)
[2024-12-10] MEDS: CINNAMON PO (08:26)
[2024-12-10] MEDS: [UNRECOGNIZED DRUG - OTHER] LEFT EYE (08:26)
[2024-12-10] MEDS: OPTHALMIC LEFT EYE (08:26)
[2024-12-10] MEDS: BERBERINE PO (08:26)
[2024-12-10] MEDS: PROLENSA 0.07% LEFT EYE (08:26)
[2024-12-10] MEDS: TOLNAFTATE 1% POWDER 45 GM BTL 1 APPLIC TOPICAL ×2 (08:27→20:27)
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
[2024-12-10 11:44] LABS: Glucose Point of Care 136 mg/dl (65-105)
[2024-12-10 11:44] LABS: Glucose Point of Care 178 mg/dl (65-105)
[2024-12-10 12:14] LABS: Basophils Absolute Auto 0.05 K/mm3 (0.00-0.10); Basophils Percent Auto 0.6 % (0.0-1.0); Eosinophils Absolute Auto 0.26 K/mm3 (0.02-0.50); Hematocrit 39.2 % (37.0-46.0); Hemoglobin 12.4 g/dL (12.4-15.3); Immature Granulocyte Absolute 0.04 K/mm3 (0.00-0.00); Immature Granulocyte Percent A 0.5 % (0.0-0.0); Lymphocytes Absolute Auto 0.87 K/mm3 (1.10-4.50); Lymphocytes Percent Auto 9.9 % (18.0-42.0); Mean Corpuscular HGB Conc 31.6 g/dL (32-36); Mean Corpuscular Hemoglobin 30.2 pg (27.0-31.0); Mean Corpuscular Volume 95.6 fL (78.0-102.0); Mean Platelet Volume 9.2 fl (8.7-11.0); Monocytes Absolute Auto 0.57 K/mm3 (0.10-0.90); Monocytes Percent Auto 6.5 % (2.0-11.0); Neutrophils Percent Auto 79.5 % (50.0-70.0); Platelet Count Result 198 K/mm3 (150-420); White Blood Count 8.8 K/mm3 (4.8-10.8)
[2024-12-10 12:31] LABS: Alanine Aminotransferase 17 U/L (16-63); Albumin Level 2.3 g/dL (3.4-5.0); Alkaline Phosphatase 142 U/L (46-116); Anion Gap 9 mmol/L (4-12); Aspartate Amino Transferase < 10 U/L (15-37); Bilirubin,Total 0.5 mg/dL (0.00-1.00); Blood Urea Nitrogen 15 mg/dL (7-18); Calcium 8.7 mg/dL (8.5-10.1); Carbon Dioxide 29 mmol/L (21-32); Chloride 103 mmol/L (98-108); Estimated CRCL calculation 65 ml/min; Estimated Glomerular Filt Rate > 60; Glucose 186 mg/dL (70-99); Osmolality Calculated 297 mOsm/kg (285-295); Potassium 4.5 mmol/L (3.5-5.1); Sodium 141 mmol/L (136-145); Total Protein 5.7 g/dL (6.4-8.2)
[2024-12-10 14:55] LABS: Appearance Urine Clear (Clear); Bilirubin Urine 1+ (Negative); Blood Urine 3+ (Negative); Glucose Urine UA Negative (Negative); Ketones Urine Trace (Negative); Leukocyte Esterase Ur Trace LEU/UL (Negative); Nitrate Urine Positive (Negative); Protein Urine 3+ (Negative); Specific Grav Ur >= 1.030 (1.010-1.020)
[2024-12-10 15:25] LABS: Add Urine Microscopic? YES; Bacteria Urine 1+ /hpf; Budding Yeast Urine Present /hpf; Color Urine Dark Brown (Yellow); RBC Urine >75 /hpf (0-2)
[2024-12-10 16:00] VITALS: BP 137/68; PULSE 95; RESP 16; TEMP 36.8; O2SAT 99
--- NOTE | 2024-12-10 16:17 | PC.NURSE ---
Cole Sandoval, LACE BURN OUT TENDER/Hospitalist, notified that patient's was requesting Glucerna with meals. New order received. LACE BURN OUT TENDER also notified that patient's UA results were in.
[2024-12-10 16:32] LABS: Glucose Point of Care 199 mg/dl (65-105)
[2024-12-10 20:00] VITALS: PULSE 97; RESP 16; O2SAT 99
[2024-12-10 20:25] VITALS: PULSE 97
[2024-12-10] MEDS: traMADol HCL (*CRX) 50 MG TABLET PO (20:25)
[2024-12-10] MEDS: GABAPENTIN 100 MG CAPSULE PO (20:25)
[2024-12-10] MEDS: MELATONIN 5 MG TABLET PO (20:25)
[2024-12-10 20:30] LABS: Glucose Point of Care 187 mg/dl (65-105)
[2024-12-11] VITALS: BP 137/63; PULSE 97; RESP 17; TEMP 37; O2SAT 96
[2024-12-11 07:54] VITALS: BP 97/55; PULSE 113; RESP 18; TEMP 36.6; O2SAT 98
[2024-12-11 07:56] LABS: Glucose Point of Care 144 mg/dl (65-105)
[2024-12-11] MEDS: BERBERINE PO (08:17)
[2024-12-11] MEDS: CHROMIUM PO (08:17)
[2024-12-11] MEDS: CINNAMON PO (08:17)
[2024-12-11] MEDS: [UNRECOGNIZED DRUG - OTHER] 1 EACH PO (08:17)
[2024-12-11 08:18] VITALS: PULSE 110
[2024-12-11] MEDS: [UNRECOGNIZED DRUG - OTHER] LEFT EYE (08:18)
[2024-12-11] MEDS: METOPROLOL TARTRATE 25 MG TABLET PO ×2 (08:18→20:27)
[2024-12-11] MEDS: TAMSULOSIN HCL 0.4 MG CAPSULE PO (08:18)
[2024-12-11] MEDS: PROLENSA 0.07% LEFT EYE (08:18)
[2024-12-11] MEDS: OPTHALMIC LEFT EYE (08:18)
[2024-12-11] MEDS: ATORVASTATIN 10 MG TABLET 20 MG PO (08:19)
[2024-12-11] MEDS: APIXABAN 2.5 MG TABLET 5 MG BY MOUTH ×2 (08:19→20:27)
[2024-12-11] MEDS: dilTIAZem HCL CD 180 MG CAP.24HR PO ×2 (08:19→20:27)
[2024-12-11] MEDS: PANTOPRAZOLE 40 MG TABLET PO (08:20)
[2024-12-11] MEDS: FERROUS SULFATE 325 MG TABLET DR BY MOUTH ×2 (08:20→17:05)
[2024-12-11] MEDS: TOLNAFTATE 1% POWDER 45 GM BTL 1 APPLIC TOPICAL ×2 (08:20→20:28)
[2024-12-11 11:36] LABS: Glucose Point of Care 251 mg/dl (65-105)
[2024-12-11] MEDS: INSULIN HUMAN LISPRO (*BKC) 1,000 UNITS/10 ML VIAL SUB-Q (11:36)
[2024-12-11 16:00] VITALS: BP 115/61; PULSE 92; RESP 18; TEMP 36.5; O2SAT 96
[2024-12-11 16:34] LABS: Glucose Point of Care 171 mg/dl (65-105)
--- NOTE | 2024-12-11 16:43 | PC.NURSE ---
Patient concerned that urine is darker than it was yesterday. Track Announcer spoke to STORE FACILITY TECHNICIAN r/t concerns. Patient stated that the urine became darker when he was assisted to sit on the bedside by therapy. Track Announcer explained to patient that by changing positions, urine was forced from the bottom of the bladder and that could account for the change when patient sat up. Patient concerned about sitting at bedside for dinner and told sign writer letterer or painter that hewill stay in bed, in seated position for dinner.
[2024-12-11 18:22] LABS: Basophils Absolute Auto 0.03 K/mm3 (0.00-0.10); Basophils Percent Auto 0.4 % (0.0-1.0); Eosinophils Absolute Auto 0.26 K/mm3 (0.02-0.50); Eosinophils Percent Auto 3.2 % (1.0-6.0); Hematocrit 36.1 % (37.0-46.0); Hemoglobin 11.5 g/dL (12.4-15.3); Immature Granulocyte Absolute 0.04 K/mm3 (0.00-0.00); Immature Granulocyte Percent A 0.5 % (0.0-0.0); Lymphocytes Absolute Auto 1.07 K/mm3 (1.10-4.50); Mean Corpuscular HGB Conc 31.9 g/dL (32-36); Mean Corpuscular Hemoglobin 29.9 pg (27.0-31.0); Monocytes Absolute Auto 0.69 K/mm3 (0.10-0.90); Monocytes Percent Auto 8.4 % (2.0-11.0); Neutrophils Absolute Auto 6.14 K/mm3 (1.70-7.20); Neutrophils Percent Auto 74.5 % (50.0-70.0); Platelet Count Result 217 K/mm3 (150-420); Red Blood Count 3.84 M/mm3 (4.70-6.10); White Blood Count 8.2 K/mm3 (4.8-10.8)
[2024-12-11 18:38] LABS: Alanine Aminotransferase 15 U/L (16-63); Albumin Level 2.3 g/dL (3.4-5.0); Alkaline Phosphatase 143 U/L (46-116); Anion Gap 8 mmol/L (4-12); Aspartate Amino Transferase < 10 U/L (15-37); Bilirubin,Total 0.4 mg/dL (0.00-1.00); Blood Urea Nitrogen 17 mg/dL (7-18); Calcium 8.3 mg/dL (8.5-10.1); Carbon Dioxide 29 mmol/L (21-32); Chloride 102 mmol/L (98-108); Estimated CRCL calculation 74 ml/min; Estimated Glomerular Filt Rate > 60; Glucose 172 mg/dL (70-99); Osmolality Calculated 293 mOsm/kg (285-295); Potassium 3.7 mmol/L (3.5-5.1); Sodium 139 mmol/L (136-145); Total Protein 5.2 g/dL (6.4-8.2)
[2024-12-11 18:40] LABS: Creatine Kinase 15 U/L (39-308)
[2024-12-11 20:00] VITALS: PULSE 96; RESP 18; O2SAT 96
[2024-12-11 20:27] VITALS: PULSE 96
[2024-12-11] MEDS: MELATONIN 5 MG TABLET PO (20:27)
[2024-12-11] MEDS: GABAPENTIN 100 MG CAPSULE PO (20:27)
[2024-12-11 20:30] LABS: Glucose Point of Care 185 mg/dl (65-105)
[2024-12-11] MEDS: traMADol HCL (*CRX) 50 MG TABLET PO (23:24)
[2024-12-12] VITALS: BP 118/64; PULSE 96; RESP 17; TEMP 36.9; O2SAT 96
[2024-12-12 07:54] LABS: Glucose Point of Care 138 mg/dl (65-105)
[2024-12-12 08:00] VITALS: BP 142/72; PULSE 104; RESP 20; TEMP 36.4; O2SAT 97
[2024-12-12 08:54] VITALS: PULSE 104
[2024-12-12] MEDS: [UNRECOGNIZED DRUG - OTHER] LEFT EYE (08:54)
[2024-12-12] MEDS: PROLENSA 0.07% LEFT EYE (08:54)
[2024-12-12] MEDS: FERROUS SULFATE 325 MG TABLET DR BY MOUTH ×2 (08:54→17:47)
[2024-12-12] MEDS: CINNAMON PO (08:54)
[2024-12-12] MEDS: TAMSULOSIN HCL 0.4 MG CAPSULE PO (08:54)
[2024-12-12] MEDS: OPTHALMIC LEFT EYE (08:54)
[2024-12-12] MEDS: APIXABAN 2.5 MG TABLET 5 MG BY MOUTH ×2 (08:54→20:46)
[2024-12-12] MEDS: PANTOPRAZOLE 40 MG TABLET PO (08:54)
[2024-12-12] MEDS: METOPROLOL TARTRATE 25 MG TABLET PO ×2 (08:54→20:46)
[2024-12-12] MEDS: [UNRECOGNIZED DRUG - OTHER] 1 EACH PO (08:54)
[2024-12-12] MEDS: dilTIAZem HCL CD 180 MG CAP.24HR PO ×2 (08:54→20:47)
[2024-12-12] MEDS: ATORVASTATIN 10 MG TABLET 20 MG PO (08:54)
[2024-12-12] MEDS: CHROMIUM PO (08:54)
[2024-12-12] MEDS: BERBERINE PO (08:54)
[2024-12-12] MEDS: TOLNAFTATE 1% POWDER 45 GM BTL 1 APPLIC TOPICAL ×2 (08:56→20:47)
[2024-12-12 11:41] LABS: Glucose Point of Care 264 mg/dl (65-105)
[2024-12-12] MEDS: INSULIN HUMAN LISPRO (*BKC) 1,000 UNITS/10 ML VIAL SUB-Q (11:54)
[2024-12-12 16:00] VITALS: BP 132/67; PULSE 94; RESP 18; TEMP 36.4; O2SAT 98
[2024-12-12 16:46] LABS: Glucose Point of Care 143 mg/dl (65-105)
[2024-12-12 20:46] VITALS: PULSE 96
[2024-12-12] MEDS: traMADol HCL (*CRX) 50 MG TABLET PO (20:46)
[2024-12-12] MEDS: MELATONIN 5 MG TABLET PO (20:46)
[2024-12-12] MEDS: GABAPENTIN 100 MG CAPSULE PO (20:47)
[2024-12-13] VITALS: BP 131/67; PULSE 96; RESP 17; TEMP 36.8; O2SAT 98
[2024-12-13 02:17] LABS: Glucose Point of Care 196 mg/dl (65-105)
[2024-12-13 08:00] VITALS: BP 133/68; PULSE 111; RESP 16; TEMP 36.1; O2SAT 99
[2024-12-13 08:07] LABS: Glucose Point of Care 140 mg/dl (65-105)
[2024-12-13 09:23] VITALS: PULSE 84
[2024-12-13] MEDS: CHROMIUM PO (09:23)
[2024-12-13] MEDS: CINNAMON PO (09:23)
[2024-12-13] MEDS: METOPROLOL TARTRATE 25 MG TABLET PO ×2 (09:23→21:04)
[2024-12-13] MEDS: BERBERINE PO (09:23)
[2024-12-13] MEDS: [UNRECOGNIZED DRUG - OTHER] 1 EACH PO (09:23)
[2024-12-13] MEDS: PANTOPRAZOLE 40 MG TABLET PO (09:23)
[2024-12-13] MEDS: OPTHALMIC LEFT EYE (09:24)
[2024-12-13] MEDS: ATORVASTATIN 10 MG TABLET 20 MG PO (09:24)
[2024-12-13] MEDS: TAMSULOSIN HCL 0.4 MG CAPSULE PO (09:24)
[2024-12-13] MEDS: APIXABAN 2.5 MG TABLET 5 MG BY MOUTH ×2 (09:24→21:04)
[2024-12-13] MEDS: [UNRECOGNIZED DRUG - OTHER] LEFT EYE (09:24)
[2024-12-13] MEDS: dilTIAZem HCL CD 180 MG CAP.24HR PO ×2 (09:24→21:05)
[2024-12-13] MEDS: FERROUS SULFATE 325 MG TABLET DR BY MOUTH ×2 (09:24→18:10)
[2024-12-13] MEDS: PROLENSA 0.07% LEFT EYE (09:24)
[2024-12-13] MEDS: TOLNAFTATE 1% POWDER 45 GM BTL 1 APPLIC TOPICAL ×2 (09:26→21:05)
[2024-12-13 11:55] LABS: Glucose Point of Care 210 mg/dl (65-105)
[2024-12-13] MEDS: INSULIN HUMAN LISPRO (*BKC) 1,000 UNITS/10 ML VIAL SUB-Q (11:56)
--- NOTE | 2024-12-13 12:30 | PC.NURSE ---
Pt transfered to [facility] via minor steady with assist of 3. No results on commode. Pt returned to chair via minor steady with assist of 2.
[2024-12-13 15:16] VITALS: BMI 10.0
[2024-12-13 16:00] VITALS: BP 131/68; PULSE 92; RESP 16; TEMP 37.1; O2SAT 97
[2024-12-13 17:09] LABS: Glucose Point of Care 188 mg/dl (65-105)
[2024-12-13 20:00] VITALS: PULSE 101; RESP 16; O2SAT 97
[2024-12-13 21:04] VITALS: PULSE 101
[2024-12-13] MEDS: GABAPENTIN 100 MG CAPSULE PO (21:04)
[2024-12-13] MEDS: traMADol HCL (*CRX) 50 MG TABLET PO (21:04)
[2024-12-13] MEDS: MELATONIN 5 MG TABLET PO (21:04)
[2024-12-13 21:05] LABS: Glucose Point of Care 173 mg/dl (65-105)
[2024-12-14] VITALS: BP 137/65; PULSE 101; RESP 16; TEMP 36.9; O2SAT 97
[2024-12-14 08:00] VITALS: BP 138/55; PULSE 118; RESP 17; TEMP 36.2; O2SAT 97
[2024-12-14 08:08] LABS: Glucose Point of Care 138 mg/dl (65-105)
[2024-12-14] MEDS: ATORVASTATIN 10 MG TABLET 20 MG PO (09:42)
[2024-12-14] MEDS: FERROUS SULFATE 325 MG TABLET DR BY MOUTH ×2 (09:42→17:24)
[2024-12-14] MEDS: TAMSULOSIN HCL 0.4 MG CAPSULE PO (09:42)
[2024-12-14 09:43] VITALS: PULSE 118
[2024-12-14] MEDS: [UNRECOGNIZED DRUG - OTHER] 1 EACH PO (09:43)
[2024-12-14] MEDS: CHROMIUM PO (09:43)
[2024-12-14] MEDS: OPTHALMIC LEFT EYE (09:43)
[2024-12-14] MEDS: BERBERINE PO (09:43)
[2024-12-14] MEDS: METOPROLOL TARTRATE 25 MG TABLET PO ×2 (09:43→20:52)
[2024-12-14] MEDS: PANTOPRAZOLE 40 MG TABLET PO (09:43)
[2024-12-14] MEDS: APIXABAN 2.5 MG TABLET 5 MG BY MOUTH ×2 (09:43→20:53)
[2024-12-14] MEDS: [UNRECOGNIZED DRUG - OTHER] LEFT EYE (09:43)
[2024-12-14] MEDS: CINNAMON PO (09:43)
[2024-12-14] MEDS: dilTIAZem HCL CD 180 MG CAP.24HR PO ×2 (09:43→20:53)
[2024-12-14] MEDS: PROLENSA 0.07% LEFT EYE (09:43)
[2024-12-14] MEDS: TOLNAFTATE 1% POWDER 45 GM BTL 1 APPLIC TOPICAL ×2 (09:44→20:54)
[2024-12-14] MEDS: INSULIN HUMAN LISPRO (*BKC) 1,000 UNITS/10 ML VIAL SUB-Q ×2 (12:05→17:24)
[2024-12-14 12:10] LABS: Glucose Point of Care 245 mg/dl (65-105)
[2024-12-14 16:00] VITALS: BP 133/67; PULSE 93; RESP 17; TEMP 36.5; O2SAT 97
[2024-12-14 17:09] LABS: Glucose Point of Care 219 mg/dl (65-105)
[2024-12-14 20:52] VITALS: PULSE 96
[2024-12-14] MEDS: traMADol HCL (*CRX) 50 MG TABLET PO (20:52)
[2024-12-14] MEDS: MELATONIN 5 MG TABLET PO (20:52)
[2024-12-14] MEDS: GABAPENTIN 100 MG CAPSULE PO (20:53)
[2024-12-14 20:58] LABS: Glucose Point of Care 168 mg/dl (65-105)
[2024-12-15] VITALS: BP 126/64; PULSE 96; RESP 16; TEMP 36.5; O2SAT 97
--- NOTE | 2024-12-15 | PC.NURSE ---
Battery removed from charger operator. Applied to box chipper, monitor applied to new leads and leads applied to mid-chest horizontially. Monitor turned on and verified it is functioning on phone. Patient tolerated procedure well. Left foot repositioned with pillow per patient request. Denies pain or discomfort.
[2024-12-15 08:00] VITALS: BP 140/74; PULSE 116; RESP 16; TEMP 36; O2SAT 97
[2024-12-15 08:13] LABS: Glucose Point of Care 137 mg/dl (65-105)
[2024-12-15] MEDS: [UNRECOGNIZED DRUG - OTHER] 1 EACH PO (08:40)
[2024-12-15] MEDS: TOLNAFTATE 1% POWDER 45 GM BTL 1 APPLIC TOPICAL ×2 (09:00→21:00)
[2024-12-15] MEDS: BERBERINE PO (09:48)
[2024-12-15] MEDS: CINNAMON PO (09:48)
[2024-12-15] MEDS: CHROMIUM PO (09:48)
[2024-12-15 09:49] VITALS: PULSE 116
[2024-12-15] MEDS: METOPROLOL TARTRATE 25 MG TABLET PO ×2 (09:49→21:00)
[2024-12-15] MEDS: PANTOPRAZOLE 40 MG TABLET PO (09:49)
[2024-12-15] MEDS: [UNRECOGNIZED DRUG - OTHER] LEFT EYE (09:49)
[2024-12-15] MEDS: ATORVASTATIN 10 MG TABLET 20 MG PO (09:49)
[2024-12-15] MEDS: TAMSULOSIN HCL 0.4 MG CAPSULE PO (09:49)
[2024-12-15] MEDS: APIXABAN 2.5 MG TABLET 5 MG BY MOUTH ×2 (09:49→21:00)
[2024-12-15] MEDS: OPTHALMIC LEFT EYE (09:49)
[2024-12-15] MEDS: FERROUS SULFATE 325 MG TABLET DR BY MOUTH ×2 (09:49→17:15)
[2024-12-15] MEDS: dilTIAZem HCL CD 180 MG CAP.24HR PO ×2 (09:49→21:44)
[2024-12-15] MEDS: PROLENSA 0.07% LEFT EYE (09:49)
[2024-12-15] MEDS: INSULIN HUMAN LISPRO (*BKC) 1,000 UNITS/10 ML VIAL SUB-Q ×2 (11:59→17:15)
[2024-12-15 12:01] LABS: Glucose Point of Care 213 mg/dl (65-105)
[2024-12-15 16:00] VITALS: BP 126/66; PULSE 104; RESP 18; TEMP 36.1; O2SAT 97
[2024-12-15 16:51] LABS: Glucose Point of Care 235 mg/dl (65-105)
[2024-12-15 20:00] VITALS: PULSE 106; RESP 16; O2SAT 96
[2024-12-15 21:00] VITALS: PULSE 106
[2024-12-15 21:00] LABS: Glucose Point of Care 166 mg/dl (65-105)
[2024-12-15] MEDS: MELATONIN 5 MG TABLET PO (21:00)
[2024-12-15] MEDS: traMADol HCL (*CRX) 50 MG TABLET PO (21:00)
[2024-12-15] MEDS: GABAPENTIN 100 MG CAPSULE PO (21:00)
[2024-12-16] VITALS (7 sets, daily range): BP systolic 113–132; BP diastolic 54–95; PULSE 98–106; RESP 16; TEMP 35.5–36.9; O2SAT 95–97
[2024-12-16 08:09] LABS: Glucose Point of Care 142 mg/dl (65-105)
[2024-12-16] MEDS: PANTOPRAZOLE 40 MG TABLET PO (09:34)
[2024-12-16] MEDS: METOPROLOL TARTRATE 25 MG TABLET PO ×2 (09:34→20:39)
[2024-12-16] MEDS: APIXABAN 2.5 MG TABLET 5 MG BY MOUTH ×2 (09:34→20:40)
[2024-12-16] MEDS: CINNAMON PO (09:34)
[2024-12-16] MEDS: [UNRECOGNIZED DRUG - OTHER] 1 EACH PO (09:34)
[2024-12-16] MEDS: CHROMIUM PO (09:34)
[2024-12-16] MEDS: BERBERINE PO (09:34)
[2024-12-16] MEDS: FERROUS SULFATE 325 MG TABLET DR BY MOUTH ×2 (09:34→17:34)
[2024-12-16] MEDS: TAMSULOSIN HCL 0.4 MG CAPSULE PO (09:34)
[2024-12-16] MEDS: dilTIAZem HCL CD 180 MG CAP.24HR PO ×2 (09:34→20:40)
[2024-12-16] MEDS: ATORVASTATIN 10 MG TABLET 20 MG PO (09:34)
[2024-12-16] MEDS: TOLNAFTATE 1% POWDER 45 GM BTL 1 APPLIC TOPICAL ×2 (09:35→20:40)
[2024-12-16] MEDS: PROLENSA 0.07% LEFT EYE (09:35)
[2024-12-16] MEDS: OPTHALMIC LEFT EYE (09:35)
[2024-12-16] MEDS: [UNRECOGNIZED DRUG - OTHER] LEFT EYE (09:35)
[2024-12-16 16:48] LABS: Glucose Point of Care 194 mg/dl (65-105)
[2024-12-16 16:53] LABS: Glucose Point of Care 201 mg/dl (65-105)
[2024-12-16] MEDS: INSULIN HUMAN LISPRO (*BKC) 1,000 UNITS/10 ML VIAL SUB-Q (17:34)
[2024-12-16] MEDS: MELATONIN 5 MG TABLET PO (20:39)
[2024-12-16] MEDS: traMADol HCL (*CRX) 50 MG TABLET PO (20:39)
[2024-12-16] MEDS: GABAPENTIN 100 MG CAPSULE PO (20:51)
[2024-12-16 22:26] LABS: Glucose Point of Care 178 mg/dl (65-105)
[2024-12-17] VITALS: BP 125/65; PULSE 99; RESP 16; TEMP 36.7; O2SAT 97
[2024-12-17 08:00] VITALS: BP 119/68; PULSE 116; RESP 16; TEMP 36.4; O2SAT 94
[2024-12-17] MEDS: [UNRECOGNIZED DRUG - OTHER] 1 EACH PO (08:35)
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
[2024-12-17 09:05] LABS: Hematocrit 36.2 % (37.0-46.0); Hemoglobin 11.5 g/dL (12.4-15.3); Mean Corpuscular HGB Conc 31.8 g/dL (32-36); Mean Corpuscular Hemoglobin 29.9 pg (27.0-31.0); Mean Corpuscular Volume 94.3 fL (78.0-102.0); Mean Platelet Volume 8.5 fl (8.7-11.0); Platelet Count Result 187 K/mm3 (150-420); Red Blood Count 3.84 M/mm3 (4.70-6.10); Red Cell Distribution Width 14.9 % (11.6-14.4); White Blood Count 6.9 K/mm3 (4.8-10.8)
[2024-12-17 09:24] LABS: Alanine Aminotransferase 14 U/L (16-63); Alkaline Phosphatase 150 U/L (46-116); Anion Gap 6 mmol/L (4-12); Aspartate Amino Transferase 10 U/L (15-37); Bilirubin,Total 0.6 mg/dL (0.00-1.00); Blood Urea Nitrogen 12 mg/dL (7-18); Calcium 8.5 mg/dL (8.5-10.1); Carbon Dioxide 30 mmol/L (21-32); Chloride 104 mmol/L (98-108); Estimated CRCL calculation 83 ml/min; Estimated Glomerular Filt Rate > 60; Glucose 193 mg/dL (70-99); Osmolality Calculated 294 mOsm/kg (285-295); Potassium 3.9 mmol/L (3.5-5.1); Sodium 140 mmol/L (136-145); Total Protein 5.4 g/dL (6.4-8.2)
[2024-12-17] MEDS: CHROMIUM PO (09:50)
[2024-12-17] MEDS: BERBERINE PO (09:50)
[2024-12-17] MEDS: CINNAMON PO (09:50)
[2024-12-17 09:51] VITALS: PULSE 116
[2024-12-17] MEDS: TAMSULOSIN HCL 0.4 MG CAPSULE PO (09:51)
[2024-12-17] MEDS: METOPROLOL TARTRATE 25 MG TABLET PO ×2 (09:51→21:09)
[2024-12-17] MEDS: [UNRECOGNIZED DRUG - OTHER] LEFT EYE (09:51)
[2024-12-17] MEDS: dilTIAZem HCL CD 180 MG CAP.24HR PO ×2 (09:51→21:09)
[2024-12-17] MEDS: ATORVASTATIN 10 MG TABLET 20 MG PO (09:51)
[2024-12-17] MEDS: OPTHALMIC LEFT EYE (09:51)
[2024-12-17] MEDS: PROLENSA 0.07% LEFT EYE (09:51)
[2024-12-17] MEDS: APIXABAN 2.5 MG TABLET 5 MG BY MOUTH ×2 (09:51→21:09)
[2024-12-17] MEDS: PANTOPRAZOLE 40 MG TABLET PO (09:51)
[2024-12-17] MEDS: FERROUS SULFATE 325 MG TABLET DR BY MOUTH ×2 (09:51→17:59)
[2024-12-17] MEDS: TOLNAFTATE 1% POWDER 45 GM BTL 1 APPLIC TOPICAL ×2 (09:53→21:14)
[2024-12-17 11:48] LABS: Glucose Point of Care 136 mg/dl (65-105)
[2024-12-17 12:17] LABS: Glucose Point of Care 207 mg/dl (65-105)
[2024-12-17] MEDS: INSULIN HUMAN LISPRO (*BKC) 1,000 UNITS/10 ML VIAL SUB-Q (12:19)
[2024-12-17 16:00] VITALS: BP 145/76; PULSE 108; RESP 20; TEMP 36.3; O2SAT 97
[2024-12-17 16:53] LABS: Glucose Point of Care 171 mg/dl (65-105)
[2024-12-17 20:00] VITALS: PULSE 118; RESP 20; O2SAT 97
[2024-12-17 21:09] VITALS: PULSE 118
[2024-12-17] MEDS: MELATONIN 5 MG TABLET PO (21:09)
[2024-12-17] MEDS: GABAPENTIN 100 MG CAPSULE PO (21:09)
[2024-12-17 21:30] LABS: Glucose Point of Care 207 mg/dl (65-105)
[2024-12-18] VITALS: BP 116/77; PULSE 118; RESP 16; TEMP 36.4; O2SAT 96
--- NOTE | 2024-12-18 04:15 | PC.NURSE ---
Patient's hear monitor was charged from 2916 to 5476. His electrodes were changed, per instructions.
--- NOTE | 2024-12-18 07:09 | PC.NURSE ---
Patient's heart rate was running a little tachy - at 118 at 0000 and ranging from 104-112 at 0705. Patient has A. Fib., and has a heart monitor.
[2024-12-18 08:30] LABS: Glucose Point of Care 141 mg/dl (65-105)
[2024-12-18 10:00] VITALS: BP 122/69; PULSE 118; RESP 18; TEMP 36.8; O2SAT 97
[2024-12-18] MEDS: [UNRECOGNIZED DRUG - OTHER] 1 EACH PO (10:04)
[2024-12-18] MEDS: PROLENSA 0.07% LEFT EYE (10:04)
[2024-12-18] MEDS: BERBERINE PO (10:04)
[2024-12-18] MEDS: [UNRECOGNIZED DRUG - OTHER] LEFT EYE (10:04)
[2024-12-18] MEDS: OPTHALMIC LEFT EYE (10:04)
[2024-12-18] MEDS: CHROMIUM PO (10:04)
[2024-12-18] MEDS: CINNAMON PO (10:04)
[2024-12-18 10:05] VITALS: PULSE 118
[2024-12-18] MEDS: TOLNAFTATE 1% POWDER 45 GM BTL 1 APPLIC TOPICAL ×2 (10:05→20:42)
[2024-12-18] MEDS: METOPROLOL TARTRATE 25 MG TABLET PO ×2 (10:05→20:42)
[2024-12-18] MEDS: FERROUS SULFATE 325 MG TABLET DR BY MOUTH ×2 (10:05→18:28)
[2024-12-18] MEDS: APIXABAN 2.5 MG TABLET 5 MG BY MOUTH ×2 (10:05→20:42)
[2024-12-18] MEDS: ATORVASTATIN 10 MG TABLET 20 MG PO (10:05)
[2024-12-18] MEDS: TAMSULOSIN HCL 0.4 MG CAPSULE PO (10:05)
[2024-12-18] MEDS: dilTIAZem HCL CD 180 MG CAP.24HR PO ×2 (10:05→20:42)
[2024-12-18] MEDS: PANTOPRAZOLE 40 MG TABLET PO (10:05)
[2024-12-18 12:14] LABS: Glucose Point of Care 234 mg/dl (65-105)
[2024-12-18] MEDS: INSULIN HUMAN LISPRO (*BKC) 1,000 UNITS/10 ML VIAL SUB-Q (12:15)
[2024-12-18] MEDS: traMADol HCL (*CRX) 50 MG TABLET PO (12:54)
--- NOTE | 2024-12-18 13:50 | PC.NURSE ---
[facility] service given report on patient. They will be transporting pt to Ortho appointment in [place]. Pt transferred to stretcher by EMS and hospital staff.
--- NOTE | 2024-12-18 15:03 | PC.NURSE ---
called concerned did not arrive at ortho appointment as of yet. Returned call, left VM that was picked up by [facility] and should be arriving soon.
--- NOTE | 2024-12-18 17:50 | PC.NURSE ---
Pt returned from Appointment. New orders from physician placed in chart. POT RUNNER notified. Pt transferred from stretcher to bed with assist of EMS and hospital staff.
[2024-12-18 18:00] VITALS: BP 134/70; PULSE 119; RESP 17; TEMP 36.2; O2SAT 96
[2024-12-18 20:39] LABS: Glucose Point of Care 140 mg/dl (65-105)
[2024-12-18] MEDS: GABAPENTIN 100 MG CAPSULE PO (20:42)
[2024-12-18] MEDS: MELATONIN 5 MG TABLET PO (20:42)
[2024-12-18 21:46] LABS: Glucose Point of Care 225 mg/dl (65-105)
[2024-12-19] VITALS: BP 128/66; PULSE 100; RESP 16; TEMP 36.4; O2SAT 96
[2024-12-19 07:04] LABS: Add Urine Microscopic? YES; Appearance Urine Cloudy (Clear); Bacteria Urine 2+ /hpf; Bilirubin Urine 1+ (Negative); Blood Urine 3+ (Negative); Color Urine Dark Amber (Yellow); Glucose Urine UA Negative (Negative); Ketones Urine Negative (Negative); Leukocyte Esterase Ur 3+ (Negative); Nitrate Urine Positive (Negative); Protein Urine 2+ (Negative); RBC Urine >75 /hpf (0-2); Specific Grav Ur 1.015 (1.010-1.020); WBC Urine >75 /hpf (0-3)
[2024-12-19 07:49] LABS: Glucose Point of Care 177 mg/dl (65-105)
[2024-12-19 08:00] VITALS: BP 130/65; PULSE 79; RESP 14; TEMP 36.3; O2SAT 98
[2024-12-19] MEDS: [UNRECOGNIZED DRUG - OTHER] 1 EACH PO (09:08)
[2024-12-19] MEDS: dilTIAZem HCL CD 180 MG CAP.24HR PO ×2 (09:09→20:50)
[2024-12-19 09:10] VITALS: PULSE 104
[2024-12-19] MEDS: ATORVASTATIN 10 MG TABLET 20 MG PO (09:10)
[2024-12-19] MEDS: METOPROLOL TARTRATE 25 MG TABLET PO ×2 (09:10→20:49)
[2024-12-19] MEDS: APIXABAN 2.5 MG TABLET 5 MG BY MOUTH ×2 (09:10→20:50)
[2024-12-19] MEDS: PANTOPRAZOLE 40 MG TABLET PO (09:10)
[2024-12-19] MEDS: CINNAMON PO (09:11)
[2024-12-19] MEDS: FERROUS SULFATE 325 MG TABLET DR BY MOUTH ×2 (09:11→17:11)
[2024-12-19] MEDS: OPTHALMIC LEFT EYE (09:11)
[2024-12-19] MEDS: PROLENSA 0.07% LEFT EYE (09:11)
[2024-12-19] MEDS: TAMSULOSIN HCL 0.4 MG CAPSULE PO (09:11)
[2024-12-19] MEDS: [UNRECOGNIZED DRUG - OTHER] LEFT EYE (09:11)
[2024-12-19] MEDS: CHROMIUM PO (09:11)
[2024-12-19] MEDS: BERBERINE PO (09:11)
[2024-12-19] MEDS: TOLNAFTATE 1% POWDER 45 GM BTL 1 APPLIC TOPICAL ×2 (09:17→20:50)
--- NOTE | 2024-12-19 11:41 | PM.EVENT ---
Event Note Event Note Event Note: Correa catheter was removed this morning at 6:00 a.m. and patient did void about 150 mL. We did do a bladder scan which only showed 115 mL in the bladder we will keep catheter out and continue to monitor for now.
[2024-12-19 11:48] LABS: Glucose Point of Care 199 mg/dl (65-105)
[2024-12-19 16:00] VITALS: BP 138/62; PULSE 100; RESP 14; TEMP 36.6; O2SAT 96
[2024-12-19 16:33] LABS: Glucose Point of Care 195 mg/dl (65-105)
[2024-12-19 19:25] VITALS: BP 121/63; PULSE 105; RESP 20; TEMP 36.6; O2SAT 97
[2024-12-19 20:49] VITALS: PULSE 105
[2024-12-19] MEDS: GABAPENTIN 100 MG CAPSULE PO (20:50)
[2024-12-19] MEDS: MELATONIN 5 MG TABLET PO (20:50)
[2024-12-19 20:59] LABS: Glucose Point of Care 166 mg/dl (65-105)
--- NOTE | 2024-12-19 21:33 | PC.NURSE ---
[id number] multiple requests for bed elias, pt concerned about having bowel movement , when skin care given, no bowel movement , noted smearing. encouraged pt to get up to bedside commode. pt states i will wait til morning. [id number] pt calls again for bedpan. encouraged pt to get up on bedside commode. pt agreed. pt up to commode with 2 director of learning assist with minor steady device. call gonzalez in reach. 2134 pt calls for assistance back to bed.
--- NOTE | 2024-12-19 21:54 | PC.NURSE ---
pt assisted back to bed with2 rn and minor steady transfer device. xlarge bowel movement.
--- NOTE | 2024-12-19 23:00 | PC.NURSE ---
report to heena sen
[2024-12-20] VITALS: BP 115/61; PULSE 98; RESP 20; TEMP 36.1; O2SAT 95
--- NOTE | 2024-12-20 00:25 | PC.NURSE ---
Pt resting in bed and doesnt voice any c/o discomfort. 275 ml of clear, ayla urine emptied from the urinal.
--- NOTE | 2024-12-20 02:06 | PC.NURSE ---
Pt voided 275 ml of clear, ayla urine.
--- NOTE | 2024-12-20 04:07 | PC.NURSE ---
Pt asleep and no signs of discomfort noted.
--- NOTE | 2024-12-20 04:30 | PC.NURSE ---
275 ml of clear, ayla urine emptied from urinal.
--- NOTE | 2024-12-20 06:23 | PC.NURSE ---
Pt asleep and no signs of discomfort noted.
[2024-12-20 08:00] VITALS: BP 136/74; PULSE 76; RESP 18; TEMP 36.6; O2SAT 96
[2024-12-20] MEDS: [UNRECOGNIZED DRUG - OTHER] 1 EACH PO (09:39)
[2024-12-20] MEDS: BERBERINE PO (09:40)
[2024-12-20] MEDS: CHROMIUM PO (09:40)
[2024-12-20] MEDS: CINNAMON PO (09:40)
[2024-12-20] MEDS: TAMSULOSIN HCL 0.4 MG CAPSULE PO (09:41)
[2024-12-20] MEDS: PANTOPRAZOLE 40 MG TABLET PO (09:42)
[2024-12-20] MEDS: dilTIAZem HCL CD 180 MG CAP.24HR PO ×2 (09:42→20:06)
[2024-12-20] MEDS: ATORVASTATIN 10 MG TABLET 20 MG PO (09:42)
[2024-12-20] MEDS: FERROUS SULFATE 325 MG TABLET DR BY MOUTH ×2 (09:42→17:52)
[2024-12-20 09:43] VITALS: PULSE 86
[2024-12-20] MEDS: APIXABAN 2.5 MG TABLET 5 MG BY MOUTH ×2 (09:43→20:06)
[2024-12-20] MEDS: METOPROLOL TARTRATE 25 MG TABLET PO ×2 (09:43→20:05)
[2024-12-20] MEDS: PROLENSA 0.07% LEFT EYE (09:46)
[2024-12-20] MEDS: [UNRECOGNIZED DRUG - OTHER] LEFT EYE (09:46)
[2024-12-20] MEDS: OPTHALMIC LEFT EYE (09:46)
[2024-12-20] MEDS: TOLNAFTATE 1% POWDER 45 GM BTL 1 APPLIC TOPICAL ×2 (09:52→20:07)
[2024-12-20 12:13] LABS: Glucose Point of Care 214 mg/dl (65-105)
[2024-12-20] MEDS: INSULIN HUMAN LISPRO (*BKC) 1,000 UNITS/10 ML VIAL SUB-Q (12:23)
[2024-12-20 16:00] VITALS: BP 127/71; PULSE 105; RESP 18; TEMP 36.2; O2SAT 97
[2024-12-20 16:41] LABS: Glucose Point of Care 175 mg/dl (65-105)
--- NOTE | 2024-12-20 18:45 | PC.NURSE ---
ASSUMED CARE. REPORT RECEIVED FROM NICOLE SOTOMAYOR
[2024-12-20 20:05] VITALS: PULSE 116
[2024-12-20] MEDS: GABAPENTIN 100 MG CAPSULE PO (20:05)
[2024-12-20] MEDS: MELATONIN 5 MG TABLET PO (20:06)
--- NOTE | 2024-12-20 20:30 | PC.NURSE ---
BLOOD GLUCOSE 208. RESTING ON STRETCHER. PATIENT REPORTS THAT HE JUST FINISHED A FISH SANDWICH FROM [employer].
--- NOTE | 2024-12-20 21:41 | PC.NURSE ---
DEPENDS CHANGED. POWDER TO GROIN PLACED. PATIENT HAS ALL PERSONAL ITEMS WITHIN REACH. CALL LIGHT IN REACH. BED IN LOW POSITION.
[2024-12-21] VITALS: BP 123/78; PULSE 116; RESP 16; TEMP 36.2; O2SAT 97
[2024-12-21 00:09] LABS: Glucose Point of Care 208 mg/dl (65-105)
--- NOTE | 2024-12-21 06:55 | PC.NURSE ---
REPORT GIVEN TO NICOLE SOTOMAYOR
[2024-12-21 08:00] VITALS: BP 113/62; PULSE 116; RESP 16; TEMP 36.6; O2SAT 97
[2024-12-21] MEDS: [UNRECOGNIZED DRUG - OTHER] 1 EACH PO (08:19)
[2024-12-21 08:20] VITALS: PULSE 116
[2024-12-21] MEDS: OPTHALMIC LEFT EYE (08:20)
[2024-12-21] MEDS: [UNRECOGNIZED DRUG - OTHER] LEFT EYE (08:20)
[2024-12-21] MEDS: BERBERINE PO (08:20)
[2024-12-21] MEDS: METOPROLOL TARTRATE 25 MG TABLET PO ×2 (08:20→20:57)
[2024-12-21] MEDS: PROLENSA 0.07% LEFT EYE (08:20)
[2024-12-21] MEDS: TAMSULOSIN HCL 0.4 MG CAPSULE PO (08:20)
[2024-12-21] MEDS: CINNAMON PO (08:20)
[2024-12-21] MEDS: CHROMIUM PO (08:20)
[2024-12-21] MEDS: APIXABAN 2.5 MG TABLET 5 MG BY MOUTH ×2 (08:21→20:56)
[2024-12-21] MEDS: ATORVASTATIN 10 MG TABLET 20 MG PO (08:21)
[2024-12-21] MEDS: dilTIAZem HCL CD 180 MG CAP.24HR PO ×2 (08:21→20:57)
[2024-12-21] MEDS: FERROUS SULFATE 325 MG TABLET DR BY MOUTH ×2 (08:22→16:43)
[2024-12-21] MEDS: PANTOPRAZOLE 40 MG TABLET PO (08:22)
[2024-12-21] MEDS: TOLNAFTATE 1% POWDER 45 GM BTL 1 APPLIC TOPICAL ×2 (08:23→20:57)
--- NOTE | 2024-12-21 09:17 | PC.NURSE ---
Family brought in ham, egg and cheese on bun and peach bahraini for patient's breakfast this morning. Patient and family aware of carb consistent, low sodium diet order.
--- NOTE | 2024-12-21 09:33 | P.PNCROSS_ITS ---
Event Note Event Note Event Note: Urine culture came back with Kerri retmira and coag neg staph, not sapro phyti. Spoke with the Infectious Disease pharmacist who recommends Levaquin for 5 days. Patient was started on Levaquin 750 mg p.o. daily x5 days.
--- NOTE | 2024-12-21 09:33 | PM.EVENT ---
Event Note Event Note Event Note: Urine culture came back with Providencia rettgeri and coag neg staph, not saprophyti. Spoke with the Infectious Disease pharmacist who recommends Levaquin for 5 days. Patient was started on Levaquin 750 mg p.o. daily x5 days.
[2024-12-21] MEDS: levoFLOXacin TAB 500 MG, levoFLOXacin TAB 250 MG 750 MG PO (11:22)
[2024-12-21] MEDS: INSULIN HUMAN LISPRO (*BKC) 1,000 UNITS/10 ML VIAL SUB-Q (11:51)
[2024-12-21 11:58] LABS: Glucose Point of Care 288 mg/dl (65-105)
--- NOTE | 2024-12-21 12:08 | PC.NURSE ---
Patient has been incontinent in an adult diaper since portillo catheter removal. Ross Lift Operator suggested bladder training/ continence training and will assist patient hourly to attempt to use his urinal. Ross Lift Operator removed patient's adult diaper and placed an incontinence pad under and over his lap. Ross Lift Operator told patient that when he feels the urge to urinate, to grab the urinal and attempt to catch it in time. Patient able to catch 150ml thick, turbid, light yellow urine. Patient remains in chair covered for modesty with skin EXECUTIVE ASSOCIATE to assist with healing. Patient started antibiotic for UTI today, per [facility]OR[facility] order.
--- NOTE | 2024-12-21 12:24 | PC.NURSE ---
Patient request to speak to JT about boot that he wears. Informed patient would call to PT and try to get ahold of JT. Called [phone] with no answer. Spoke with patient informing JT was either with another patient downstairs or at lunch. While in room, patient wanted his walking brace off and wasnt sure how to do it. Defalted boot as instructed by manufactures directions and took boot off.
[2024-12-21] MEDS: traMADol HCL (*CRX) 50 MG TABLET PO (14:38)
--- NOTE | 2024-12-21 15:24 | PC.NURSE ---
Written material provided to patient r/t bladder training. Dressings changed to L heel, calf and buttock. No s/s infection noted. Patient tolerated well.
[2024-12-21 16:00] VITALS: BP 109/64; PULSE 108; RESP 16; TEMP 36.2; O2SAT 98
[2024-12-21 16:47] LABS: Glucose Point of Care 126 mg/dl (65-105)
[2024-12-21 16:57] LABS: Glucose Point of Care 124 mg/dl (65-105)
[2024-12-21] MEDS: traZODone HCL 25 MG TABLET PO (20:56)
[2024-12-21 20:57] LABS: Glucose Point of Care 152 mg/dl (65-105)
[2024-12-21] MEDS: GABAPENTIN 100 MG CAPSULE PO (20:57)
[2024-12-22] VITALS: BP 117/70; PULSE 101; RESP 16; TEMP 36.3; O2SAT 95
--- NOTE | 2024-12-22 05:59 | PC.NURSE ---
Pt's monitor placed on charge at 209912/21/2024. Pt's monitor placed back onto his chest w/new telemetry pads also placed. Device due to be charged again and pads due to be changed on on the night of the .
[2024-12-22 08:00] VITALS: BP 120/65; PULSE 98; RESP 14; TEMP 36.6; O2SAT 98
[2024-12-22 08:05] LABS: Glucose Point of Care 139 mg/dl (65-105)
[2024-12-22] MEDS: PANTOPRAZOLE 40 MG TABLET PO (09:18)
[2024-12-22] MEDS: dilTIAZem HCL CD 180 MG CAP.24HR PO ×2 (09:18→21:02)
[2024-12-22 09:19] VITALS: PULSE 96
[2024-12-22] MEDS: METOPROLOL TARTRATE 25 MG TABLET PO ×2 (09:19→21:02)
[2024-12-22] MEDS: levoFLOXacin TAB 500 MG, levoFLOXacin TAB 250 MG 750 MG PO (09:19)
[2024-12-22] MEDS: ATORVASTATIN 10 MG TABLET 20 MG PO (09:20)
[2024-12-22] MEDS: FERROUS SULFATE 325 MG TABLET DR BY MOUTH ×2 (09:20→17:07)
[2024-12-22] MEDS: TAMSULOSIN HCL 0.4 MG CAPSULE PO (09:20)
[2024-12-22] MEDS: APIXABAN 2.5 MG TABLET 5 MG BY MOUTH ×2 (09:20→21:02)
[2024-12-22] MEDS: PROLENSA 0.07% LEFT EYE (09:21)
[2024-12-22] MEDS: BERBERINE PO (09:21)
[2024-12-22] MEDS: CINNAMON PO (09:21)
[2024-12-22] MEDS: [UNRECOGNIZED DRUG - OTHER] 1 EACH PO (09:21)
[2024-12-22] MEDS: OPTHALMIC LEFT EYE (09:21)
[2024-12-22] MEDS: [UNRECOGNIZED DRUG - OTHER] LEFT EYE (09:21)
[2024-12-22] MEDS: CHROMIUM PO (09:21)
[2024-12-22] MEDS: TOLNAFTATE 1% POWDER 45 GM BTL 1 APPLIC TOPICAL ×2 (09:23→21:02)
[2024-12-22 12:05] LABS: Glucose Point of Care 206 mg/dl (65-105)
[2024-12-22] MEDS: INSULIN HUMAN LISPRO (*BKC) 1,000 UNITS/10 ML VIAL SUB-Q (14:13)
[2024-12-22 16:35] VITALS: BP 114/60; PULSE 87; RESP 18; TEMP 36.2; O2SAT 97
[2024-12-22 17:02] LABS: Glucose Point of Care 165 mg/dl (65-105)
[2024-12-22] MEDS: GABAPENTIN 100 MG CAPSULE PO (21:02)
[2024-12-22] MEDS: traZODone HCL 50 MG TABLET PO (21:02)
[2024-12-22 21:10] LABS: Glucose Point of Care 154 mg/dl (65-105)
[2024-12-22] MEDS: traMADol HCL (*CRX) 50 MG TABLET PO (21:52)
[2024-12-23] VITALS: BP 124/72; PULSE 103; RESP 19; TEMP 36.3; O2SAT 96
[2024-12-23 08:00] VITALS: BP 128/58; PULSE 98; RESP 14; TEMP 36.8; O2SAT 97
[2024-12-23 08:06] LABS: Glucose Point of Care 121 mg/dl (65-105)
[2024-12-23] MEDS: [UNRECOGNIZED DRUG - OTHER] 1 EACH PO (08:12)
[2024-12-23] MEDS: TOLNAFTATE 1% POWDER 45 GM BTL 1 APPLIC TOPICAL ×2 (09:00→20:52)
[2024-12-23] MEDS: PROLENSA 0.07% LEFT EYE (09:13)
[2024-12-23] MEDS: OPTHALMIC LEFT EYE (09:13)
[2024-12-23] MEDS: FERROUS SULFATE 325 MG TABLET DR BY MOUTH ×2 (09:13→17:49)
[2024-12-23] MEDS: dilTIAZem HCL CD 180 MG CAP.24HR PO ×2 (09:13→20:50)
[2024-12-23] MEDS: BERBERINE PO (09:13)
[2024-12-23] MEDS: CINNAMON PO (09:13)
[2024-12-23] MEDS: CHROMIUM PO (09:13)
[2024-12-23] MEDS: [UNRECOGNIZED DRUG - OTHER] LEFT EYE (09:13)
[2024-12-23 09:14] VITALS: PULSE 88
[2024-12-23] MEDS: PANTOPRAZOLE 40 MG TABLET PO (09:14)
[2024-12-23] MEDS: TAMSULOSIN HCL 0.4 MG CAPSULE PO (09:14)
[2024-12-23] MEDS: APIXABAN 2.5 MG TABLET 5 MG BY MOUTH ×2 (09:14→20:50)
[2024-12-23] MEDS: METOPROLOL TARTRATE 25 MG TABLET PO ×2 (09:14→20:50)
[2024-12-23] MEDS: ATORVASTATIN 10 MG TABLET 20 MG PO (09:14)
[2024-12-23] MEDS: levoFLOXacin TAB 500 MG, levoFLOXacin TAB 250 MG 750 MG PO (09:14)
[2024-12-23 11:56] LABS: Glucose Point of Care 220 mg/dl (65-105)
[2024-12-23] MEDS: INSULIN HUMAN LISPRO (*BKC) 1,000 UNITS/10 ML VIAL SUB-Q (12:45)
[2024-12-23 16:35] VITALS: BP 118/62; PULSE 91; RESP 16; TEMP 36.2; O2SAT 96
[2024-12-23 17:00] LABS: Glucose Point of Care 115 mg/dl (65-105)
[2024-12-23] MEDS: traMADol HCL (*CRX) 50 MG TABLET PO (20:50)
[2024-12-23] MEDS: traZODone HCL 50 MG TABLET PO (20:50)
[2024-12-23] MEDS: GABAPENTIN 100 MG CAPSULE PO (20:50)
[2024-12-23 21:00] LABS: Glucose Point of Care 155 mg/dl (65-105)
[2024-12-24] VITALS: BP 124/72; PULSE 103; RESP 19; TEMP 36.3; O2SAT 96
[2024-12-24 07:52] LABS: Glucose Point of Care 128 mg/dl (65-105)
[2024-12-24 08:00] VITALS: BP 125/56; PULSE 111; RESP 16; TEMP 36.1; O2SAT 94
[2024-12-24] MEDS: [UNRECOGNIZED DRUG - OTHER] LEFT EYE (08:42)
[2024-12-24] MEDS: PROLENSA 0.07% LEFT EYE (08:42)
[2024-12-24] MEDS: CINNAMON PO (08:42)
[2024-12-24] MEDS: [UNRECOGNIZED DRUG - OTHER] 1 EACH PO (08:42)
[2024-12-24] MEDS: TAMSULOSIN HCL 0.4 MG CAPSULE PO (08:42)
[2024-12-24] MEDS: BERBERINE PO (08:42)
[2024-12-24] MEDS: CHROMIUM PO (08:42)
[2024-12-24] MEDS: OPTHALMIC LEFT EYE (08:42)
[2024-12-24] MEDS: traMADol HCL (*CRX) 50 MG TABLET PO ×2 (08:43→15:32)
[2024-12-24] MEDS: dilTIAZem HCL CD 180 MG CAP.24HR PO ×2 (08:44→20:32)
[2024-12-24] MEDS: ATORVASTATIN 10 MG TABLET 20 MG PO (08:44)
[2024-12-24] MEDS: levoFLOXacin TAB 500 MG, levoFLOXacin TAB 250 MG 750 MG PO (08:44)
[2024-12-24 08:45] VITALS: PULSE 111
[2024-12-24] MEDS: METOPROLOL TARTRATE 25 MG TABLET PO ×2 (08:45→20:32)
[2024-12-24] MEDS: PANTOPRAZOLE 40 MG TABLET PO (08:45)
[2024-12-24] MEDS: FERROUS SULFATE 325 MG TABLET DR BY MOUTH ×2 (08:45→17:09)
[2024-12-24] MEDS: TOLNAFTATE 1% POWDER 45 GM BTL 1 APPLIC TOPICAL ×2 (08:46→20:35)
[2024-12-24] MEDS: APIXABAN 2.5 MG TABLET 5 MG BY MOUTH ×2 (08:46→20:32)
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
[2024-12-24 10:43] LABS: Hematocrit 37.4 % (37.0-46.0); Hemoglobin 11.6 g/dL (12.4-15.3); Mean Corpuscular Hemoglobin 30.1 pg (27.0-31.0); Mean Corpuscular Volume 96.9 fL (78.0-102.0); Mean Platelet Volume 8.7 fl (8.7-11.0); Platelet Count Result 197 K/mm3 (150-420); Red Blood Count 3.86 M/mm3 (4.70-6.10); White Blood Count 8.5 K/mm3 (4.8-10.8)
--- NOTE | 2024-12-24 11:07 | PC.NURSE ---
Nurse received call from Chen at [facility] reporting to that patient's pain medicine physician was not sending signal. Nurse went to patient's room and checked the device. Phone attached to monitor had been powered off. Deputy County Counsel powered the phone back on and restored the connection between device and phone.
[2024-12-24 11:10] LABS: Alanine Aminotransferase 8 U/L (16-63); Albumin Level 2.1 g/dL (3.4-5.0); Alkaline Phosphatase 135 U/L (46-116); Anion Gap 7 mmol/L (4-12); Aspartate Amino Transferase < 10 U/L (15-37); Bilirubin,Total 0.5 mg/dL (0.00-1.00); Blood Urea Nitrogen 15 mg/dL (7-18); Calcium 8.6 mg/dL (8.5-10.1); Carbon Dioxide 29 mmol/L (21-32); Chloride 105 mmol/L (98-108); Estimated CRCL calculation 64 ml/min; Estimated Glomerular Filt Rate > 60; Glucose 223 mg/dL (70-99); Osmolality Calculated 299 mOsm/kg (285-295); Potassium 4.5 mmol/L (3.5-5.1); Sodium 141 mmol/L (136-145); Total Protein 5.6 g/dL (6.4-8.2)
[2024-12-24 11:29] LABS: Band Neutrophils Percent 1 % (0-6); Basophils Percent Manual 0 % (0-1); Eosinophils Percent Manual 0 % (1-6); Lymphocytes Absolute Manual 0.76 K/mm3 (1.1-4.5); Lymphocytes Percent Manual 9 % (18-44); Monocytes Absolute Manual 0.42 K/mm3 (0.1-0.90); Monocytes Percent Manual 5 % (3-9); Neutrophils Absolute Manual 7.31 K/mm3 (1.3-6.7); Neutrophils Percent Manual 85 % (46-73); Total Cells Counted 100
[2024-12-24 11:30] LABS: Platelet Estimate Adequate (Adequate); Schistocytes None Seen
[2024-12-24 11:59] LABS: Glucose Point of Care 190 mg/dl (65-105)
[2024-12-24 16:00] VITALS: BP 122/68; PULSE 88; RESP 16; TEMP 36; O2SAT 94
[2024-12-24 16:46] LABS: Glucose Point of Care 137 mg/dl (65-105)
--- NOTE | 2024-12-24 18:45 | PC.NURSE ---
ASSUMED CARE. REPORT RECEIVED FROM NICOLE SOTOMAYOR.
--- NOTE | 2024-12-24 19:10 | PC.NURSE ---
PATIENT IS CURRENTLY ON HOSPITAL BED RESTING. EXCITED ABOUT BEING TRANSFERRED TO [facility] ON TUESDAY. CURRENTLY DENIES ANY NEEDS. BED IN LOW POSITION. CALL LIGHT IN REACH. NOTIFIED PATIENT THIS RN WOULD BE BACK FOR MED PASS AND BLOOD SUGAR CHECK. PATIENT VERBALIZED UNDERSTAND
[2024-12-24] MEDS: GABAPENTIN 100 MG CAPSULE PO (20:31)
[2024-12-24 20:32] VITALS: PULSE 102
[2024-12-24 20:37] LABS: Glucose Point of Care 159 mg/dl (65-105)
[2024-12-25] VITALS (7 sets, daily range): BP systolic 106–136; BP diastolic 56–72; PULSE 94–105; RESP 16–20; TEMP 36–36.6; O2SAT 94–98
--- NOTE | 2024-12-25 07:00 | PC.NURSE ---
REPORT GIVEN TO NICOLE SOTOMAYOR
[2024-12-25 08:05] LABS: Glucose Point of Care 130 mg/dl (65-105)
[2024-12-25] MEDS: dilTIAZem HCL CD 180 MG CAP.24HR PO ×2 (08:57→20:41)
[2024-12-25] MEDS: PANTOPRAZOLE 40 MG TABLET PO (08:57)
[2024-12-25] MEDS: levoFLOXacin TAB 500 MG, levoFLOXacin TAB 250 MG 750 MG PO (08:57)
[2024-12-25] MEDS: TAMSULOSIN HCL 0.4 MG CAPSULE PO (08:57)
[2024-12-25] MEDS: FERROUS SULFATE 325 MG TABLET DR BY MOUTH ×2 (08:58→17:25)
[2024-12-25] MEDS: ATORVASTATIN 10 MG TABLET 20 MG PO (08:58)
[2024-12-25] MEDS: APIXABAN 2.5 MG TABLET 5 MG BY MOUTH ×2 (08:58→20:40)
[2024-12-25] MEDS: METOPROLOL TARTRATE 25 MG TABLET PO ×2 (08:59→20:40)
[2024-12-25] MEDS: [UNRECOGNIZED DRUG - OTHER] 1 EACH PO (08:59)
[2024-12-25] MEDS: TOLNAFTATE 1% POWDER 45 GM BTL 1 APPLIC TOPICAL ×2 (09:00→20:44)
[2024-12-25] MEDS: CHROMIUM PO (09:00)
[2024-12-25] MEDS: BERBERINE PO (09:00)
[2024-12-25] MEDS: [UNRECOGNIZED DRUG - OTHER] LEFT EYE (09:00)
[2024-12-25] MEDS: PROLENSA 0.07% LEFT EYE (09:00)
[2024-12-25] MEDS: OPTHALMIC LEFT EYE (09:00)
[2024-12-25] MEDS: CINNAMON PO (09:00)
--- NOTE | 2024-12-25 11:04 | PC.NURSE ---
Patient refused room to be cleaned by housekeeping today.
[2024-12-25] MEDS: INSULIN HUMAN LISPRO (*BKC) 1,000 UNITS/10 ML VIAL SUB-Q (11:36)
[2024-12-25 11:38] LABS: Glucose Point of Care 224 mg/dl (65-105)
[2024-12-25 16:23] LABS: Glucose Point of Care 144 mg/dl (65-105)
[2024-12-25] MEDS: GABAPENTIN 100 MG CAPSULE PO (20:41)
[2024-12-25] MEDS: traMADol HCL (*CRX) 50 MG TABLET PO (20:48)
[2024-12-25 20:53] LABS: Glucose Point of Care 170 mg/dl (65-105)
[2024-12-25] MEDS: traZODone HCL 50 MG TABLET PO (23:13)
[2024-12-26 07:56] LABS: Glucose Point of Care 124 mg/dl (65-105)
[2024-12-26 08:00] VITALS: BP 124/57; PULSE 110; RESP 18; TEMP 36.3; O2SAT 97
[2024-12-26] MEDS: BERBERINE PO (08:49)
[2024-12-26] MEDS: CHROMIUM PO (08:49)
[2024-12-26] MEDS: [UNRECOGNIZED DRUG - OTHER] 1 EACH PO (08:49)
[2024-12-26] MEDS: CINNAMON PO (08:49)
[2024-12-26 08:50] VITALS: PULSE 110
[2024-12-26] MEDS: METOPROLOL TARTRATE 25 MG TABLET PO ×2 (08:50→21:45)
[2024-12-26] MEDS: FERROUS SULFATE 325 MG TABLET DR BY MOUTH ×2 (08:50→16:57)
[2024-12-26] MEDS: dilTIAZem HCL CD 180 MG CAP.24HR PO ×2 (08:50→21:45)
[2024-12-26] MEDS: PROLENSA 0.07% LEFT EYE (08:50)
[2024-12-26] MEDS: TAMSULOSIN HCL 0.4 MG CAPSULE PO (08:50)
[2024-12-26] MEDS: [UNRECOGNIZED DRUG - OTHER] LEFT EYE (08:50)
[2024-12-26] MEDS: PANTOPRAZOLE 40 MG TABLET PO (08:50)
[2024-12-26] MEDS: ATORVASTATIN 10 MG TABLET 20 MG PO (08:50)
[2024-12-26] MEDS: APIXABAN 2.5 MG TABLET 5 MG BY MOUTH ×2 (08:50→21:45)
[2024-12-26] MEDS: traMADol HCL (*CRX) 50 MG TABLET PO ×2 (08:50→21:48)
[2024-12-26] MEDS: OPTHALMIC LEFT EYE (08:50)
[2024-12-26] MEDS: TOLNAFTATE 1% POWDER 45 GM BTL 1 APPLIC TOPICAL ×2 (08:51→21:48)
[2024-12-26 12:02] LABS: Glucose Point of Care 212 mg/dl (65-105)
[2024-12-26] MEDS: INSULIN HUMAN LISPRO (*BKC) 1,000 UNITS/10 ML VIAL SUB-Q (12:06)
[2024-12-26 16:00] VITALS: BP 116/65; PULSE 96; RESP 18; TEMP 36.1; O2SAT 97
[2024-12-26 16:57] LABS: Glucose Point of Care 182 mg/dl (65-105)
[2024-12-26 20:00] VITALS: PULSE 112; RESP 16; O2SAT 96
[2024-12-26 21:45] VITALS: PULSE 112
[2024-12-26] MEDS: GABAPENTIN 100 MG CAPSULE PO (21:45)
[2024-12-26] MEDS: traZODone HCL 50 MG TABLET PO (21:45)
[2024-12-27] VITALS: BP 116/66; PULSE 112; RESP 16; TEMP 36.5; O2SAT 96
[2024-12-27 00:57] LABS: Glucose Point of Care 225 mg/dl (65-105)
[2024-12-27 08:00] VITALS: BP 122/68; PULSE 100; TEMP 36.6; O2SAT 96
[2024-12-27] MEDS: BERBERINE PO (09:18)
[2024-12-27] MEDS: CHROMIUM PO (09:18)
[2024-12-27] MEDS: [UNRECOGNIZED DRUG - OTHER] 1 EACH PO (09:18)
[2024-12-27] MEDS: CINNAMON PO (09:18)
[2024-12-27 09:20] VITALS: PULSE 88
[2024-12-27] MEDS: PANTOPRAZOLE 40 MG TABLET PO (09:20)
[2024-12-27] MEDS: PROLENSA 0.07% LEFT EYE (09:20)
[2024-12-27] MEDS: OPTHALMIC LEFT EYE (09:20)
[2024-12-27] MEDS: METOPROLOL TARTRATE 25 MG TABLET PO (09:20)
[2024-12-27] MEDS: [UNRECOGNIZED DRUG - OTHER] LEFT EYE (09:20)
[2024-12-27] MEDS: TAMSULOSIN HCL 0.4 MG CAPSULE PO (09:20)
[2024-12-27] MEDS: FERROUS SULFATE 325 MG TABLET DR BY MOUTH (09:21)
[2024-12-27] MEDS: ATORVASTATIN 10 MG TABLET 20 MG PO (09:21)
[2024-12-27] MEDS: APIXABAN 2.5 MG TABLET 5 MG BY MOUTH (09:21)
[2024-12-27] MEDS: dilTIAZem HCL CD 180 MG CAP.24HR PO (09:21)
[2024-12-27] MEDS: TOLNAFTATE 1% POWDER 45 GM BTL 1 APPLIC TOPICAL (09:22)
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
[2024-12-27 11:47] LABS: Glucose Point of Care 205 mg/dl (65-105)
[2024-12-27 12:13] LABS: Glucose Point of Care 140 mg/dl (65-105)
[2024-12-27] MEDS: INSULIN HUMAN LISPRO (*BKC) 1,000 UNITS/10 ML VIAL SUB-Q (12:40)
[2024-12-27] MEDS: traMADol HCL (*CRX) 50 MG TABLET PO (12:41)
--- NOTE | 2024-12-27 13:35 | PC.NURSE ---
Pt discharged to [facility] for more intensive rehab. Discharge instructions given to pt and . Documents placed in large white envalope for the facility. Pt and spouse verbalized understanding of instructions. Pt VSS. Pt given pain med prior to discharge. Pt transported by private Van to [facility] in .
== END 2024-12-27 13:00 | DRG 560 ==
PROVIDERS: Nurse Practitioner Family; Admitting Provider Internal Medicine; PCP Family Medicine; Visit Provider Nurse Practitioner Acute Care
DX: S32.401D Unspecified fracture of right acetabulum, subsequent encounter for fracture with routine healing (principal); N39.0 Urinary tract infection, site not specified; S32.402D Unspecified fracture of left acetabulum, subsequent encounter for fracture with routine healing; S42.202D Unspecified fracture of upper end of left humerus, subsequent encounter for fracture with routine healing; S82.142D Displaced bicondylar fracture of left tibia, subsequent encounter for closed fracture with routine healing; S02.2XXD Fracture of nasal bones, subsequent encounter for fracture with routine healing; S22.32XD Fracture of one rib, left side, subsequent encounter for fracture with routine healing; S73.03 Other anterior subluxation and dislocation of hip; I10 Essential (primary) hypertension; I48.0 Paroxysmal atrial fibrillation; R33.9 Retention of urine, unspecified; K58.9 Irritable bowel syndrome, unspecified; D50.9 Iron deficiency anemia, unspecified; E11.9 Type 2 diabetes mellitus without complications; L89.629 Pressure ulcer of left heel, unspecified stage; Z87.891 Personal history of nicotine dependence; V89.2XXD Person injured in unspecified motor-vehicle accident, traffic, subsequent encounter; Z79.01 Long term (current) use of anticoagulants
CPT/HCPCS: 36415; 80053; 81001; 82550; 82948; 83036; 85025; 85027; 87077; 87086; 87088; 87186; 87493; 93005; 97110; 97112; 97161; 97164; 97166; 97530; 97535; A9270; J1815

== ENCOUNTER 2025-01-31 15:06 | Outpatient (CLI) | payer MEDICARE, SELFPAY ==
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
--- OUTSIDE RECORDS SUMMARY | 2025-01-31 15:10 | XMS_ITS | Encounter Summary ---
Author Organization [facility] Address [address] [place] [address] Care Team Providers Care Rotary Cutter Name Role Phone Anabell Lama MD Unavailable Anabell Lama MD Unavailable Freddy Gil MD Unavailable [phone] Yonathan Lazcano DO Primary Care Provider [phone] Encounter Details Date Type Department Care Team (Latest Contact Info) Description 01/30/2025 Travel Social History Tobacco Use Types Packs/Day Years Used Date Smoking Tobacco: Former Cigarettes Q uit: 08/25/1985 Smokeless Tobacco: Never Comments:Patient states that he smoked 5 serbian cigars per day when he smoked, years ago Alcohol Use Standard Drinks/Week Comments Yes 0 (1 standard drink = 0.6 oz pur e alcohol) very rare [facility] Utilities Answer Date Recorded In the [...] were you homeless or living in a long-term (including now)? No 10/04/2024 Sex and Gender Information Value Date Recorded Sex Assigned at Male 11/22/2024 8:57 AM ATTENDANT COIN OPERATED LAUNDRY Legal Sex Male 9:34 PM CDT Gender Identity Male 11/22/2024 8:57 AM ATTENDANT COIN OPERATED LAUNDRY Sexual Orientation Straight 11/22/2024 8: 57 AM ATTENDANT COIN OPERATED LAUNDRY documented as of this encounter Functional Status * Are you deaf or do you have serious difficulty hearing Answer Date of Assessment Author Status No 10/04/2024 1:46 AM ATTENDANT COIN OPERATED LAUNDRY Alyssa Lipscomb RN Active * Are you blind or [...] Conner RN Active documented in this encounter Plan of Treatment Upcoming Encounters Date Type Department Care Team (Late st Contact Info) Description 02/01/2025 11:45 AM CDT Appointment [facility] [address] [place] [address] Lit España, PT [address] [place] [address] 02/01/2025 2:00 PM CDT Appointment [facility] [address] [place] [address] [place] [address] [phone] (Work) Anai Perez, [facility] [place] [address] 02/04/2025 10:45 AM CDT Appointment [facility] [address] [place] [address] Lit España, PT [address] [place] [address] 02/04/2025 11:30 AM CDT Appointment [facility] [address] [place] [address] Lit España, PT [address] [place] [address] Kandi Solis, EMPERATRIZ 02/06/2025 10:30 AM CDT Appointment [facility] [address] [place] [address] Ashly Childs, CORPORATE SCHEDULER [address] [facility] [place] [address] 02/06/2025 2:00 PM CDT Appointment [facility] [address] [place] [address] Serge Lange, PT [address] [place] [address] 02/06/2025 3:00 PM CDT Appointment [facility] [address] [place] [address] Lit España, PT [address] [place] [address] Kandi Solis, EMPERATRIZ 02/08/2025 1:00 PM CDT Appointment [facility] [address] [place] [address] Serge Lange, PT [address] [place] [address] 02/08/2025 2:00 PM CDT Appointment [facility] [address] [place] [address] Lit España, PT [address] [place] [address] Anai Perez, OT [address] [place] [address] 02/13/2025 2:30 PM CDT Office Visit [facility] [place] [phone] Freddy Gil MD [address] [place] [address] documented as of this encounter Visit Diagnoses Not on filedocumented in this encounter Additional Health Concerns Infection Onset Date Last Indicated Resolved Time MRSA 10/10/2024 10/12/2024 documented as of this encounter Care Teams Rotary Cutter Relationship Specialty Start Date End Date Yonathan Lazcano DO [address] [place] [address] PCP - General FAMILY PRACTICE 01/28/25 Anabell Lama MD [address] [place] [address] Consulting Physician CARDIOVASCULAR DISEASE 07/16/21 Anabell Lama MD [address] [place] [address] Consulting Physician CARDIOVASCULAR DISEASE 10/05/24 Freddy Gil MD [address] [place] [address] Consulting Physician CLINICAL CARDIAC ELECTROPHYSIOLOGY 01/28/25 documented as of this encounter
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
--- OUTSIDE RECORDS SUMMARY | 2025-01-31 15:10 | XMS_ITS | Clinical Summary ---
Author Organization [facility] Address [address] [place] [address] Care Team Providers [facility] Manager Name Role Phone Casandra Foreman MD Primary Care Provider [phone] Piter Lau DO Unavailable [phone] Source Comments [facility],non-owned Affiliates and Associated Physician Practices is amultiple site organization consisting of ambulatory clinics and hospital sitesin [place], [place], [place] and [place]. This disclosure is being madepursuant to the Care Everywhere program and may not contain all information available regarding this patient. Last updated 18.[facility] Allergies Active Allergy Reactions Criticality Noted Date Comments Meperidine 02/17/2015 Niacin Rash Medium 04/21/2021 Medications * Be aware that medications may not be up to date on this document. Alwaysverify current medications with the patient. Multiple Vitamin (MULTI VITAMIN DAILY PO) Take 1 Tab by mouth once daily Active CALCIUM PO Take 1,200 mg by mouth once daily Active [place]-3 Fatty Acids (FISH OIL) 1000 MG capsule Take 1,000 mg by mouth once daily Active Multiple Vitamins-Minerals (PRESERVISION AREDS PO) Active B Complex-C (SUPER B COMPLEX PO) Take [...] by mouth once daily 90 capsule 3 04/21/20 21 Active quinapril - hydroCHLOROthiazide (ACCURETIC; QUINARETIC) 20-12.5 MG tablet Take 2 (two) tablets by mouth once daily 180 tablet 5 04/21/20 21 Active rosuvastatin (CRESTOR) 10 MG tablet Take 1 (one) tablet by mouth once daily 90 tablet 3 04/21/20 21 Active Active Problems Problem Noted Date Diagnosed [...] Recorded Sex Assigned at Not on file Legal Sex Male 1:39 PM RN MEDICAL INPAT[facility] SERVICES Gender Identity Not on file Sexual Orientation Not on file Last Filed Vital Signs Vital Sign Reading Time Taken Comments Blood Pressure 130/88 04/21/2021 2:12 PM CDT Pulse 86 04/21/2021 2:12 PM CDT Temperature 36.9 C (98.4 F) 09/04/2018 3:07 PM RN MEDICAL INPATIENT SERVICES Respiratory Rate 18 04/21/2021 2:12 PM CDT Oxygen Saturation 96% 04/21/2021 2:12 PM CDT Inhaled Oxygen Concentration - - Weight 118.5 kg (261 lb 3.2 oz) 04/21/2021 2:12 PM CDT Height 180.3 cm (5' 11 ) 04/21/2021 2:12 PM CDT Body Mass Index 36.43 04/21/2021 2:12 PM CDT Plan of Treatment Health Maintenance Due Date Last Done Comments COLOGUARD (AGES 45-75) - COL ON CA SCREENING [...] DIABETES-SERUM CREATININE 03/07/20192017, 04/11/2016, 09/25/2013 COVID-19 VACCINE (2023-2 5 season) 2024 DEPRESSION SCREENING 09/19/2024 DIABETES - URINE PROTEIN SCREENING 09/19/2024 INFLUENZA VACCINE (Season Ended) 2025 Respiratory Syncytial Virus (RSV) Vaccine Pt: or [...] this topic Medical Devices Implanted Type Area [employer]rain [employer] Device Identifier Shelf Expiration Date Model / Serial / Lot Stent Ureth Inlay Optimal 6.0fr X 26cm - Sn/A Implanted:Qty: 1 on 04/30/2016 by Lasha Card MD at [facility] Right: [employer] 10/06/2019 [id number] / N/A / [id number] Procedures Procedure Name Priority Date/Time Associated Diagnosis Comments BASIC METABOLIC PANEL (CALCIUM TOTAL) Routine 03/07/2018 8:14 AM CDT Swelling of limb ENDOSCOPY, COLON, SCREENING Routine 10/22/2016 8:37 AM RN MEDICAL INPATIENT SERVICES HEMOGLOBIN A1C Routine 09/25/2013 10:13 AM RN MEDICAL INPATIENT SERVICES Type Ii Or Unspecified Type Diabetes Mellitus Without Mention Of Complication, Not Stated As Uncontrolled from Last 3 Months or Most Recently Relevant to Health Maintenance Results * (ABNORMAL) BASIC METABOLIC PANEL (CALCIUM TOTAL) (03/07/2018 8:14 AM CDT) [facility] Glucose 202(H) 70 - 125 mg/dL 03/07/2018 9:23 AM CDT [facility] Sodium 140 136 - 145 mmol/L 03/07/2018 9:23 AM T [facility] Potassium 3.9 3.4 - 4.5 mmol/L 03/07/2018 9:23 AM T [facility] Chloride 104 98 - 107 mmol/L 03/07/2018 9:23 AM T [facility] CO2 26 22 - 29 mmol/L 03/07/2018 9:23 AM CDT [facility] Calcium 9.2 8.4 - 10.2 mg/dL 03/07/2018 9:23 AM T [facility] Anion Gap 14 10 - 20 mmol/L 03/07/2018 9:23 AM CDT [facility] BUN 11.9 8.4 - 25.7 mg/dL 03/07/2018 9:23 AM T [facility] Creatinine 0.97 0.72 - 1.25 mg/dL 03/07/2018 9:23 AM T [facility] eGFR by MDRD >60 >60 mL/min/1.7 3m2 03/07/2018 9:23 AM T [facility] eGFR by MDRD >60 >60 mL/min/1.7 3m2 03/07/2018 9:23 AM T [facility] Blood BLOOD SPECIMEN / Unknown Lab Venipuncture / Unknown 03/07/2018 8:14 AM CDT 03/07/2018 8:49 AM CDT us Piter T Lau DO LAB - CHEMISTRY ORDERABLES Sylvie l Result Performing Organization Address [facility] Co de Phone Number [facility] [address] * (ABNORMAL) HEMOGLOBIN A1C (09/25/2013 10:13 AM RN MEDICAL INPATIENT SERVICES) Hemoglobin A1c 6.7(H) 4.2 - 5.8 % 09/26/2013 12:20 AM RN MEDICAL INPATIENT SERVICES [facility] Estimated Average Glucose 146 mg/dL 09/26/2013 12:20 AM [facility] Whole Blood BLOOD SPECIMEN / Unknown Lab Venipuncture / Unknown 09/25/2013 10:13 AM RN MEDICAL INPATIENT SERVICES 09/25/2013 10:14 AM RN MEDICAL INPATIENT SERVICES Narrative [facility] - 09/26/2013 12:20 AM RN MEDICAL INPATIENT SERVICES HgbA1c Test Information: The [place] [employer] recommends a HGB A1C of < 7% and that physicians reevaluate the treatment regiment of patients with HGB A1C values consistently >8%. Maya Be MD LAB - CHEMISTRY ORDERABLES Sylvie l Result Performing Organization Address [facility] Co de Phone Number [facility] [address] from Last 3 Months or Most Recently Relevant to Health Maintenance Insurance MEDICARE MEDICARE SUPPLEMENT PAYOR GENERIC Care Teams [facility] Manager Relationship Specialty Start Date End Date Casandra Foreman MD [address] [place] [id number] PCP - General Family Medicine 03/20/19 Piter Lau DO 2 [facility] [address] [place] [address] Cardiac Electrophysiology 03/20/19
[2025-01-31 15:21] LABS: Basophils Absolute Auto 0.03 K/mm3 (0.00-0.10); Basophils Percent Auto 0.4 % (0.0-1.0); Eosinophils Absolute Auto 0.17 K/mm3 (0.02-0.50); Eosinophils Percent Auto 2.3 % (1.0-6.0); Hematocrit 37.1 % (37.0-46.0); Hemoglobin 11.8 g/dL (12.4-15.3); Immature Granulocyte Absolute 0.03 K/mm3 (0.00-0.00); Immature Granulocyte Percent A 0.4 % (0.0-0.0); Lymphocytes Absolute Auto 1.07 K/mm3 (1.10-4.50); Lymphocytes Percent Auto 14.6 % (18.0-42.0); Mean Corpuscular HGB Conc 31.8 g/dL (32-36); Mean Corpuscular Hemoglobin 30.7 pg (27.0-31.0); Mean Corpuscular Volume 96.6 fL (78.0-102.0); Mean Platelet Volume 9.2 fl (8.7-11.0); Monocytes Absolute Auto 0.58 K/mm3 (0.10-0.90); Monocytes Percent Auto 7.9 % (2.0-11.0); Neutrophils Absolute Auto 5.45 K/mm3 (1.70-7.20); Neutrophils Percent Auto 74.4 % (50.0-70.0); Platelet Count Result 189 K/mm3 (150-420); Red Blood Count 3.84 M/mm3 (4.70-6.10); Red Cell Distribution Width 15.1 % (11.6-14.4); White Blood Count 7.3 K/mm3 (4.8-10.8)
[2025-01-31 16:05] LABS: Hemoglobin A1C 6.1 % (<5.7)
[2025-01-31 16:19] LABS: Alanine Aminotransferase 16 U/L (6-50); Alkaline Phosphatase 71 U/L (38-126); Anion Gap 4 mmol/L (4-12); Aspartate Amino Transferase 32 U/L (17-59); Blood Urea Nitrogen 16 mg/dL (9-20); Calcium 8.3 mg/dL (8.4-10.2); Carbon Dioxide 29 mmol/L (22-30); Chloride 106 mmol/L (98-107); Cholesterol 90 mg/dL (0-200); Estimated Glomerular Filt Rate > 60; Glucose 210 mg/dL (65-110); HDL Direct 25 mg/dL; Iron 60 ug/dL (49-181); LDL Cholesterol Calculated 23 mg/dL (<130); Osmolality Calculated 295 mOsm/kg (285-295); Potassium 3.9 mmol/L (3.4-5.0); Sodium 139 mmol/L (137-145); Total Protein 5.7 g/dL (6.3-8.2); Triglycerides 210 mg/dL (<150)
[2025-01-31 16:27] LABS: Percent Iron Saturation 27 % (12-57)
[2025-01-31 17:25] LABS: Folic Acid > 20.0 ng/mL (2.76->20)
== END 2025-01-31 15:07 | disposition home or self-care (01) ==
LOC: CHSLAB 15:08
PROVIDERS: PCP Family Medicine; Visit Provider Family Medicine
DX: E11.65 Type 2 diabetes mellitus with hyperglycemia (principal); E03.9 Hypothyroidism, unspecified; D50.9 Iron deficiency anemia, unspecified; E53.8 Deficiency of other specified B group vitamins
CPT/HCPCS: 36415; 80053; 80061; 82607; 82728; 82746; 83036; 83540; 83550; 84443; 85025